=== PATIENT | male | born 1950 | race Caucasian/White ===

== ENCOUNTER 2017-12-11 12:07 | Inpatient (IN) | payer MEDICARE, OTHER ==
[2017-12-11 12:40] LABS: % BASOPHILS 1.8 % (0.0-2.0); % EOSINOPHILS 3.9 % (0.0-5.0); % LYMPHOCYTES 21.5 % (20.0-50.0); % MONOCYTES 5.8 % (2.0-10.0); BASOPHILE ABSOLUTE 0.2 Th/cumm (0-0.2); EOSINOPHILE ABSOLUTE 0.4 Th/cmm (0.1-0.4); HEMATOCRIT 46.7 % (41.0-60); HEMOGLOBIN 15.5 gm/dL (12-16); MEAN CELL VOLUME 88.4 fl (80-99); MEAN CORPUSCULAR HEMOGLOBIN 29.4 pg (27.0-31.0); MEAN CORPUSCULAR HGB CONC 33.2 pg (28.0-36.0); MEAN PLATELET VOLUME 7.6 fl; MONOCYTE ABSOLUTE 0.6 Th/cmm (0.3-1.0); NEUTROPHILE ABSOLUTE 6.3 Th/cmm (1.8-8.0); PLATELET COUNT 243 Th/cmm (150-400); RED BLOOD COUNT 5.29 Mil/cmm (3.80-5.80); RED CELL DISTRIBUTION WIDTH 15.9 % (11.5-20.0); WHITE BLOOD COUNT 9.5 Th/cmm (4.8-10.8)
[2017-12-11 12:55] LABS: ALB/GLOB RATIO 1.6 (1.0-1.8); ALBUMIN 4.3 gm/dL (4.2-5.5); ALKALINE PHOSPHATASE 86 U/L (34-104); BILIRUBIN,TOTAL 0.6 mg/dL (0.3-1.0); BUN - UREA NITROGEN 14 mg/dL (7-25); CALCIUM SERUM 9.3 mg/dL (8.6-10.3); CARBON DIOXIDE 22.7 mEq/L (21.0-31.0); CHLORIDE 105 mEq/L (98-107); CHOLESTEROL 123 mg/dL (<200); CREATININE - SERUM 0.7 mg/dL (0.7-1.3); GFR AFRICAN-AMERICAN > 60.0 ml/min (>90); GFR NON AFRICAN-AMERICAN > 60.0 ml/min; GLUCOSE 115 mg/dL (70-105); HDL -HIGH DENSITY LIPOPROTEIN 26 mg/dL (23-92); POTASSIUM SERUM 3.7 mEq/L (3.5-5.1); SGOT 16 U/L (13-39); SGPT/ALT 15 U/L (7-52); SODIUM SERUM 138 mEq/L (136-145); TRIGLYCERIDES 106 mg/dL (<150)
[2017-12-11 12:56] LABS: ACETAMINOPHEN < 10.0 ug/mL (10.0-30.0); SALICYLATES (ASPIRIN) < 25.0 mg/L (30.0-100.0)
--- NOTE | 2017-12-11 13:33 | ED Physician Chart ---
ED Chief Complaint/HPI - Patient Information Date Seen:: 12/11/17 Time Seen:: 12:20 Chief Complaint:: Agitation History of Present Illness:: onset x 3 days of agitation and hostile behavior; no report of trauma, H/As, S/T , neck pain, C/P, SOB, Abd. Pain, A/N/V/D/C, fever, chills, SIs, or urinary s/s Allergies:: Allergies Allergy/AdvReac Type Severity Reaction Status Date / Time No Known Allergies Allergy Verified 12/11/17 12:23 Vitals:: Vital Signs - 8 hr 12/11/17 12/11/17 12:23 13:23 Temp 97.0 F 97.5 F HR 79 78 RR 16 18 BP 178/81 165/78 O2 Sat % 99 98 Historian:: Patient Review:: Nurse's Note Reviewed ED Review of Systems - Review of Systems General/Constitutional: No fever, No chills, No weight loss, No weakness, No diaphoresis, No edema, No loss of appetite Skin: No skin lesions, No rash, No bruising Head: No headache, No light-headedness Eyes: No loss of vision, No pain, No diplopia ENT: No earache, No nasal drainage, No sore throat, No tinnitus Neck: No neck pain, No swelling, No thyromegaly, No stiffness, No mass noted Cardio Vascular: No chest pain, No palpitations, No PND, No orthopnea, No edema Pulmonary: No SOB, No cough, No sputum, No wheezing GI: No nausea, No vomiting, No diarrhea, No pain, No melena, No hematochezia, No constipation, No hematemesis G/U: No dysuria, No frequency, No hematuria, No nacturia Musculoskeletal: No bone or joint pain, No back pain, No muscle pain Endocrine: No polyuria, No polydipsia Psychiatric: Prior psych history, Depression, No anxiety, No suicidal ideation, No homicidal ideation, Auditory hallucination, No visual hallucination Hematopoietic: No bruising, No lymphadenopathy Allergic/Immuno: No urticaria, No angioedema Neurological: No syncope, No focal symptoms, No weakness, No paresthesia, No headache, No seizure, No dizziness, No confusion, No vertigo ED Past Medical History - Past Medical History Obtainable: Yes Past Medical History: HTN, Dyslipidemia, PUD/GERD Family History: HTN Social History: Non Smoker, No Alcohol, No Drug Use, Single, Care Facility Surgical History: None Psychiatricy History: Schizophrenia, Bipolar Medication: Reviewed Family Medical History - Family Member Mother History Unknown: Yes ED Physical Exam - Physical Examination General/Constitutional: Awake, Well-developed, well-nourished, Alert, No distress, GCS 15, Non-toxic appearing, Ambulatory Head: Atraumatic Eyes: Lids, conjuctiva normal, PERRL, EOMI Skin: Nl inspection, No rash, No skin lesions, No ecchymosis, Well hydrated, No lymphadenopathy ENMT: External ears, nose nl, TM canals nl, Nasal exam nl, Lips, teeth, gums nl , Oropharynx nl, Tonsils nl Neck: Nontender, Full ROM w/o pain, No JVD, No nuchal rigidity, No bruit, No mass, No stridor Respiratory: Nl effort/Exclusion, Clear to Auscultation, No Wheeze/Rhonchi/Rales Cardio Vascular: RRR, No murmur, gallop, rubs, NL S1 S2, Carotid/Femoral/Distal pulses equal bilaterally GI: No tenderness/rebounding/guarding, No organomegaly, No hernia, Normal BS's, Nondistended, No mass/bruits, No McBurney tenderness, Rectum exam nl : No CVA tenderness Extremities: No tenderness or effusion, Full ROM, normal strength in all extremities, No edema, Normal digits & nails Neuro/Psych: Alert/oriented, DTR's symmetric, Normal sensory exam, Normal motor strength, Judgement/insight normal, Mood normal, Normal gait, No focal deficits Other Neuro/Psych comments:: + Psychomotor Agitation; no SIs; Mood/Affect: Labile Misc: Normal back, No paraspinal tenderness ED Labs/Radiology/EKG Results - Lab Results Results: Laboratory Tests 12/11/17 12/11/17 12:30 12:30 WBC 9.5 RBC 5.29 Hgb 15.5 Hct 46.7 MCV 88.4 MCH 29.4 MCHC Differential 33.2 RDW 15.9 Plt Count 243 MPV 7.6 Neutrophils % 67.0 Lymphocytes % 21.5 Monocytes % 5.8 Eosinophils % 3.9 Basophils % 1.8 Sodium 138 Potassium 3.7 Chloride 105 Carbon Dioxide 22.7 Anion Gap 14.0 BUN 14 Creatinine 0.7 Est GFR ( Amer) > 60.0 Est GFR (Non-Af Amer) > 60.0 BUN/Creatinine Ratio 20.0 Glucose 115 H Calcium 9.3 Total Bilirubin 0.6 AST 16 ALT 15 Alkaline Phosphatase 86 Total Protein 7.0 Albumin 4.3 Globulin 2.7 Albumin/Globulin Ratio 1.6 Triglycerides 106 Cholesterol 123 LDL Cholesterol Direct 96 HDL Cholesterol 26 Salicylates < 25.0 L Acetaminophen < 10.0 L Ethyl Alcohol < 10 ED Septic Shock - . Is Septic Shock (SBP<90, OR Lactate>4 mmol\L) present?: No - <6hrs of presentation: Vital Signs: Vital Signs - 8 hr 12/11/17 12/11/17 12:23 13:23 Temp 97.0 F 97.5 F HR 79 78 RR 16 18 BP 178/81 165/78 O2 Sat % 99 98
[2017-12-11 13:43] LABS: URINE MICROSCOPIC INDICATED? YES; URINE SOURCE CLEAN C
[2017-12-11 13:45] LABS: URINE BILIRUBIN NEGATIVE (NEGATIVE); URINE BLOOD NEGATIVE (NEGATIVE); URINE GLUCOSE (UA) NEGATIVE (NEGATIVE); URINE KETONE NEGATIVE (NEGATIVE); URINE LEUKOCYTE ESTERASE NEGATIVE (NEGATIVE); URINE NITRATE NEGATIVE (NEGATIVE); URINE PROTEIN NEGATIVE (NEGATIVE)
[2017-12-11 13:46] LABS: URINE CLARITY CLEAR (CLEAR); URINE COLOR YELLOW
[2017-12-11 13:58] LABS: URINE BACTERIA OCCASIONAL /hpf (NONE SEEN); URINE EPITHELIAL CELLS FEW /lpf (FEW); URINE RBC 0-2 /hpf (0-5); URINE WBC 0-2 /hpf (0-5)
[2017-12-11 16:57] VITALS: BP 126/78
[2017-12-11] MEDS ORDERED: Magnesium Hydroxide (MOM) 30 mL UDC PO PRN (16:58)
[2017-12-11] MEDS ORDERED: Maalox 30 mL Cup PO PRN (16:58)
[2017-12-11] MEDS ORDERED: Albuterol/Ipratropium Neb 3 ML AERS HHN PRN (20:40)
--- NOTE | 2017-12-12 04:11 | Psychosocial Evaluation ---
DATE OF SERVICE: 12/11/2017 PSYCHIATRIC PROGRESS NOTE IDENTIFYING DATA: The patient is a 67-year-old male, resident of [facility]. Information obtained by directly interviewing the patient as well as reviewing the admission papers and they are reliable. JUSTIFICATION FOR HOSPITALIZATION: The patient is admitted here on a voluntary basis in view of his psychosis and mood. CHIEF COMPLAINT: "I love my girlfriend so much and I need to be back at the place, I am exchanging the places for her." HISTORY OF PRESENT ILLNESS: This is the first psychiatric hospitalization to this patient, who is reported to have been very anxious and upset and the patient is reported to have been mentioning that his girlfriend was here recently and he came in here to replace her. The patient is stating that he was in so much love with the girlfriend and he is about to her. The patient is going on a tangent. The patient has been mentioning he could not figure it out why he has to come in here except that he got into an argument with one of the staff members over there. The patient's sleep and appetite prior to the hospitalization are reported to be poor. Coping skills are also noted to be very poor. The patient has been having difficult time to cope with the stress. The patient at this time is willing to comply with the treatment, but wants to go back because his girlfriend is there at the place. SUBSTANCE ABUSE HISTORY: None. PHYSICAL OR SEXUAL ABUSE HISTORY: None. LEGAL PROBLEMS: None at this time. MENTAL STATUS EXAMINATION: The patient is a 67-year-old, looking older than her stated age, cooperative. Eye contact is poor. Mood is noted to be depressed. Affect is constricted. The patient has paranoia, but denies any command hallucinations. The patient is reported to have gotten out of control and scream at the staff members. The patient's major concern at this time seems to be his sexual dysfunction. The patient is stating that he is planning to , but he is not able to perform. The patient is alert and awake and he is fully aware that he is in the hospital. Short-term memory is noted to be fair. Long-term memory is also noted to be fair. DIAGNOSTIC IMPRESSION: AXIS IA. Major depressive disorder, recurrent and moderate. AXIS IB. Rule out psychosis. AXIS II: None. AXIS III: As per Dr. Witt. IMMEDIATE TREATMENT PLAN. The patient is going to be continued on the Celexa. The patient is going to be closely monitored. Once stabilized, the patient is going to be discharged to [email or web address] to be followed up on an outpatient basis. JOB# [id number]
[2017-12-12] MEDS: Multivitamin Tab PO SCH (08:57)
--- NOTE | 2017-12-12 09:13 | History and Physical ---
History of Present Illness - HPI Chief Complaint: Increased in agitation HPI: This is a permanent resident of a skilled nursing. patient was send to ER for evaluation in increased in agitation. Vital Signs: Last Vital Signs Temp 97.7 F 12/12/17 06:09 Pulse 71 12/12/17 08:56 Resp 20 12/12/17 06:09 BP 123/74 12/12/17 08:58 Pulse Ox 97 12/12/17 06:09 Past Medical History Cardiovascular: Report: CAD, HTN Pulmonary: Report: No Pertinent Hx TANK INSPECTOR: Report: No Pertinent Hx GI: Report: No Pertinent Hx Psych: Report: Psychosis, Schizophrenia Musculoskeletal: Report: No Pertinent Hx Rheumatologic: Report: No pertinent Hx Infectious Disease: Report: No Pertinent Hx Renal/: Report: No Pertinent Hx, Other (Dyslipemia) Dermatology: Report: No Pertinent Hx - Past Surgical History Past Surgical History: No pertinent Hx Family Medical History - Family Member Mother History Unknown: Yes Ethnicity: Unknown Living Status: Unknown Hx Family Cancer: (unknown) Hx Family Coronary Artery Disease: (unknown) Hx Family Congestive Heart Failure: (unknown) Hx Family Hypertension: (unknown) Hx Family Stroke: (unknown) Hx Family Diabetes: (unknown) Hx Family Seizures: (unknown) Hx Family Dementia: (unknown) Hx Family AIDS: (unknown) Hx Family COPD: (unknown) Hx Family Hepatitis: (unknown) Hx Family Psychiatric Problems: (unknown) Hx Family Tuberculosis: (unknown) Social History Smoke: No Alcohol: None Drugs: None Lives: Senior Living Domestic Violence: Negative - Medications Home Medications: Home Medication Medication Instructions Recorded Type Acetaminophen [Tylenol] 325 mg PO Q4HR PRN 12/11/17 History Acetaminophen [Tylenol] 650 mg PO Q4HR PRN 12/11/17 History Albuterol/Ipratropium Neb [Duoneb 3 ml HHN Q6HR PRN 12/11/17 History Neb] Amitriptyline HCl [Amitriptyline 50 mg PO HS 12/11/17 History HCl*] Amlodipine Besylate 5 mg PO DAILY 12/11/17 History Aspirin 325 mg PO DAILY 12/11/17 History Carvedilol [Coreg] 3.125 mg PO BID 12/11/17 History Citalopram Hydrobromide [Celexa] 20 mg PO DAILY 12/11/17 History Fluticasone/Salmeterol [Advair 1 puff INH BID 12/11/17 History 250-50 Diskus] Furosemide [Lasix] 20 mg PO DAILY 12/11/17 History Gabapentin [Neurontin] 300 mg PO BID 12/11/17 History Lisinopril 20 mg PO DAILY 12/11/17 History Magnesium Oxide [Mag-Oxide] 400 mg PO DAILY 12/11/17 History Metformin HCl [Fortamet] 1,000 mg PO BID 12/11/17 History Nitroglycerin 0.4 mg SL Q5MIN PRN 12/11/17 History Simvastatin [Zocor] 20 mg PO HS 12/11/17 History Tamsulosin [Flomax] 0.4 mg PO HS 12/11/17 History - Allergies Allergies/Adverse Reactions: Allergies Allergy/AdvReac Type Severity Reaction Status Date / Time No Known Allergies Allergy Verified 12/11/17 12:23 Review of Systems - Review of Systems Constitutional: Report: No Significant Eyes: Report: No Significant ENT: Report: No Significant Respiratory: Report: No Significant Cardiovascular: Report: No Significant Gastrointestinal: Report: No Significant Genitourinary: Report: No Significant Musculoskeletal: Report: No Significant Skin: Report: No Significant Neurological: Report: No Significant Physical Exam - Physical Exam HEENT: Report: Ears Nose Throat within normal limits Neck: Report: Within normal limits Cardiovascular Systems: Report: Regular, Rate and Rhythm Respiratory: Report: Breath Sounds are within normal limits Abdomen: Report: Non-tender to palpation Back: Report: Inspection of back is within normal limits. Extremities: Report: Non-tender to palpation. Skin: Report: Color of skin is within normal limits Neuro/Psych: Report: Disoriented to name time or place - Lab Results All Lab Results last 24 hours: Laboratory Results - last 24 hr 12/11/17 14:25 POC Glucose 107 H - Assessment Assessment: Current Active Problems Problem Status Onset AGITATION AND AGGRESSION Acute Patient is awake, alert, confused. DX: Incresed in agitation, HTN, Schizophrenia - Plan Plan: Patient is follow by Psychiatry, Continue with SNF meds. Will continue to monitor.
--- NOTE | 2017-12-12 19:51 | Progress Notes ---
DATE: 12/12/2017 SUBJECTIVE: Staff was spoken to. The patient is interviewed. Mood is noted to be irritable. Affect is constricted. The patient is still very depressed. The patient is stating that he is missing his girlfriend. He needs to be there. Coping skills are noted to be very poor. Insight and judgment are very much impaired. Impulse control is very poor. The patient is downplaying why he has to be in here and is stating that he got upset with the staff over there and he states that he is trying to be nice now. ASSESSMENT: The patient is still depressed. PLAN: To continue the patient with the supportive therapy. Encouraged the patient to verbalize the concerns rather than to act out. [facility]# [id number]
[2017-12-13] MEDS: Multivitamin Tab PO SCH (08:09)
--- NOTE | 2017-12-13 09:11 | General Progress Note ---
Subjective - Review of Systems Service Date: 12/13/17 Subjective: I am ok Objective - Results Result Diagrams: 12/11/17 12:30 12/11/17 12:30 Recent Labs: Laboratory Last Values WBC 9.5 Th/cmm (4.8-10.8) 12/11/17 12:30 RBC 5.29 Mil/cmm (3.80-5.80) 12/11/17 12:30 Hgb 15.5 gm/dL (12-16) 12/11/17 12:30 Hct 46.7 % (41.0-60) 12/11/17 12:30 MCV 88.4 fl (80-99) 12/11/17 12:30 MCH 29.4 pg (27.0-31.0) 12/11/17 12:30 MCHC Differential 33.2 pg (28.0-36.0) 12/11/17 12:30 RDW 15.9 % (11.5-20.0) 12/11/17 12:30 Plt Count 243 Th/cmm (150-400) 12/11/17 12:30 MPV 7.6 fl 12/11/17 12:30 Neutrophils % 67.0 % (40.0-80.0) 12/11/17 12:30 Lymphocytes % 21.5 % (20.0-50.0) 12/11/17 12:30 Monocytes % 5.8 % (2.0-10.0) 12/11/17 12:30 Eosinophils % 3.9 % (0.0-5.0) 12/11/17 12:30 Basophils % 1.8 % (0.0-2.0) 12/11/17 12:30 Sodium 138 mEq/L (136-145) 12/11/17 12:30 Potassium 3.7 mEq/L (3.5-5.1) 12/11/17 12:30 Chloride 105 mEq/L (98-107) 12/11/17 12:30 Carbon Dioxide 22.7 mEq/L (21.0-31.0) 12/11/17 12:30 Anion Gap 14.0 (7.0-16.0) 12/11/17 12:30 BUN 14 mg/dL (7-25) 12/11/17 12:30 Creatinine 0.7 mg/dL (0.7-1.3) 12/11/17 12:30 Est GFR ( Amer) > 60.0 ml/min (>90) 12/11/17 12:30 Est GFR (Non-Af Amer) > 60.0 ml/min 12/11/17 12:30 BUN/Creatinine Ratio 20.0 12/11/17 12:30 Glucose 115 mg/dL (70-105) H 12/11/17 12:30 POC Glucose 107 MG/DL (70 - 105) H 12/11/17 14:25 Hemoglobin A1c % 6.0 % (4.0-6.0) 12/11/17 12:30 Calcium 9.3 mg/dL (8.6-10.3) 12/11/17 12:30 Total Bilirubin 0.6 mg/dL (0.3-1.0) 12/11/17 12:30 AST 16 U/L (13-39) 12/11/17 12:30 ALT 15 U/L (7-52) 12/11/17 12:30 Alkaline Phosphatase 86 U/L (34-104) 12/11/17 12:30 Total Protein 7.0 gm/dL (6.0-8.3) 12/11/17 12:30 Albumin 4.3 gm/dL (4.2-5.5) 12/11/17 12:30 Globulin 2.7 gm/dL 12/11/17 12:30 Albumin/Globulin Ratio 1.6 (1.0-1.8) 12/11/17 12:30 Triglycerides 106 mg/dL (<150) 12/11/17 12:30 Cholesterol 123 mg/dL (<200) 12/11/17 12:30 LDL Cholesterol Direct 96 mg/dL (75-193) 12/11/17 12:30 HDL Cholesterol 26 mg/dL (23-92) 12/11/17 12:30 TSH 1.06 uIU/ml (0.34-5.60) 12/11/17 12:30 Urine Source CLEAN C 12/11/17 12:15 Urine Color YELLOW 12/11/17 12:15 Urine Clarity CLEAR (CLEAR) 12/11/17 12:15 Urine pH 7.0 (4.6 - 8.0) 12/11/17 12:15 Ur Specific [place] 1.015 (1.005-1.030) 12/11/17 12:15 Urine Protein NEGATIVE mg/dL (NEGATIVE) 12/11/17 12:15 Urine Glucose (UA) NEGATIVE mg/dL (NEGATIVE) 12/11/17 12:15 Urine Ketones NEGATIVE mg/dL (NEGATIVE) 12/11/17 12:15 Urine Blood NEGATIVE (NEGATIVE) 12/11/17 12:15 Urine Nitrate NEGATIVE (NEGATIVE) 12/11/17 12:15 Urine Bilirubin NEGATIVE (NEGATIVE) 12/11/17 12:15 Urine Urobilinogen 1.0 E.U./dL (0.2 - 1.0) 12/11/17 12:15 Ur Leukocyte Esterase NEGATIVE (NEGATIVE) 12/11/17 12:15 Urine RBC 0-2 /hpf (0-5) H 12/11/17 12:15 Urine WBC 0-2 /hpf (0-5) 12/11/17 12:15 Ur Epithelial Cells FEW /lpf (FEW) 12/11/17 12:15 Urine Bacteria OCCASIONAL /hpf (NONE SEEN) 12/11/17 12:15 Salicylates < 25.0 mg/L (30.0-100.0) L 12/11/17 12:30 Acetaminophen < 10.0 ug/mL (10.0-30.0) L 12/11/17 12:30 Ethyl Alcohol < 10 mg/dL (0-10) 12/11/17 12:30 RPR NONREACTIVE (NONREACTIVE) 12/11/17 12:30 - Physical Exam Vitals and I&O: Vital Signs Temp 98.1 F 12/13/17 06:40 Pulse 68 12/13/17 08:12 Resp 20 12/13/17 06:40 BP 143/66 12/13/17 08:12 Pulse Ox 97 12/13/17 06:40 Intake & Output 12/12/17 12/13/17 12/13/17 18:59 06:59 18:59 Intake Total 1600 320 Balance 1600 320 Intake: Oral 1600 320 Other: # Voids 4 3 # Bowel Movements 1 Active Medications: Current Medications Acetaminophen (Tylenol) 650 mg PO Q4HR PRN PRN Reason: Mild Pain / Temp above 100 Stop: 02/09/18 16:57 Al Hydrox/Mg Hydrox/Simethicone (Maalox) 30 ml PO Q4HR PRN PRN Reason: GI DISTRESS Stop: 02/09/18 16:57 Albuterol/Ipratropium (Duoneb Neb) 3 ml HHN Q6HR PRN PRN Reason: WHEEZING/SOB Stop: 02/09/18 20:39 Amlodipine Besylate (Norvasc) 5 mg PO DAILY MOSHE Stop: 02/10/18 08:59 Last Admin: 12/13/17 08:11 Dose: 5 mg Aspirin (Aspirin) 325 mg PO DAILY MOSHE Stop: 02/10/18 08:59 Last Admin: 12/13/17 08:11 Dose: 325 mg Carvedilol (Coreg) 3.125 mg PO BID MOSHE Stop: 02/10/18 08:59 Last Admin: 12/13/17 08:10 Dose: 3.125 mg Citalopram Hydrobromide (Celexa) 10 mg PO DAILY MOSHE PRN Reason: Protocol Stop: 02/10/18 08:59 Last Admin: 12/13/17 08:09 Dose: 10 mg Furosemide (Lasix) 20 mg PO DAILY MOSHE Stop: 02/10/18 08:59 Last Admin: 12/13/17 08:11 Dose: 20 mg Gabapentin (Neurontin) 300 mg PO BID MOSHE Stop: 02/10/18 08:59 Last Admin: 12/13/17 08:10 Dose: 300 mg Lisinopril (Zestril) 20 mg PO DAILY MOSHE Stop: 02/10/18 08:59 Last Admin: 12/13/17 08:12 Dose: 20 mg Lorazepam (Ativan) 0.5 mg PO Q4HR PRN; Protocol PRN Reason: Anxiety Stop: 01/10/18 16:57 Last Admin: 12/12/17 21:22 Dose: 0.5 mg Magnesium Hydroxide (Milk Of Magnesia) 30 ml PO HS PRN PRN Reason: Constipation Magnesium Oxide (Mag-Oxide) 400 mg PO DAILY MOSHE Stop: 02/10/18 08:59 Last Admin: 12/13/17 08:08 Dose: 400 mg Metformin HCl (Glucophage) 1,000 mg PO BIDWM MOSHE Stop: 02/10/18 07:59 Last Admin: 12/13/17 08:09 Dose: 1,000 mg Multivitamins/Vitamin C (Theragran) 1 tab PO DAILY MOSHE Stop: 02/10/18 08:59 Last Admin: 12/13/17 08:09 Dose: 1 tab Nitroglycerin (Nitrostat) 0.4 mg SL Q5MIN PRN PRN Reason: Chest Pain Stop: 02/09/18 20:39 Simvastatin (Zocor) 20 mg PO HS MOSHE PRN Reason: Protocol Stop: 02/09/18 20:59 Last Admin: 12/12/17 21:22 Dose: 20 mg Tamsulosin HCl (Flomax) 0.4 mg PO HS MOSHE Stop: 02/09/18 20:59 Last Admin: 12/12/17 21:22 Dose: 0.4 mg Zolpidem Tartrate (Ambien) 5 mg PO HS PRN PRN Reason: Insomnia Stop: 02/09/18 16:57 Last Admin: 12/12/17 21:22 Dose: 5 mg General: Alert, Other (Confused) HEENT: Atraumatic Neck: Supple Cardiovascular: Regular rate Abdomen: Bowel sounds, Soft Extremities: Other (No edema) Neurological: Other (Unstable gait) Skin: Other (warm and dry) Psych/Mental Status: Other (Confused, not oriented) Assessment/Plan - Problem List Patient Problems: All Active Problems AGITATION AND AGGRESSION (Acute) - Assessment Assessment: Current Active Problems Problem Status Onset AGITATION AND AGGRESSION Acute Patient is awake, alert, confused. DX: Incresed in agitation, HTN, Schizophrenia - Plan Plan: Patient is follow by Psychiatry, Continue with SNF meds. Will continue to monitor.
--- NOTE | 2017-12-13 15:05 | Progress Notes ---
DATE: 12/13/2017 SUBJECTIVE: Staff was spoken to. The patient is interviewed. Mood is noted to be irritable. Affect is constricted. Insight and judgment at this time are noted to be still impaired. Impulse control seems to be limited. Coping skills are noted to be limited. The patient, however, has been stating that there is no reason for him to be in here, he needs to be discharged. The patient is very intrusive. ASSESSMENT: The patient is still depressed. PLAN: To continue the patient with the citalopram and encouraged the patient to verbalize the concerns rather than to act out. Please note that the patient is not ready to be discharged to a lower level of care yet. JOB# [id number]
--- NOTE | 2017-12-13 18:14 | Consultation ---
DATE OF CONSULTATION: 12/13/2017 TYPE OF CONSULTATION: Psychology. REQUESTING PHYSICIAN: Dr. Maru Red. HISTORY OF PRESENT ILLNESS: The patient is a 67-year-old male who is a resident of [facility]. The following is by review of medical record and by the patient's self report. The patient is being admitted in view of possible psychosis and mood instability. According to the staff at the patient's facility, it was reported he had been anxious and upset with his girlfriend and was verbally acting out towards the staff. The patient became inconsolable about his girlfriend and other issues related to his relationship. Upon interview, the patient needed constant cognitive redirection and reframing. The patient's thought process was markedly tangential. The patient denied that he was arguing with the staff. The patient is having a difficult time coping with current stressors. The patient stated he has no suicidal ideation, plan, or intention. PAST MEDICAL HISTORY: Please see history and physical by Dr. Witt. PAST PSYCHIATRIC HISTORY: No records available. CURRENT MEDICATIONS: Please see admission medication reconciliation. SUBSTANCE ABUSE HISTORY: The patient denies any history. PSYCHOSOCIAL HISTORY: The patient is a resident of [facility]. The patient states that he is going to get to his girlfriend and has a relationship at his facility with her and that he wants to return to his placement. The patient stated that he is a high school graduate. The patient did not answer questions about occupational history or evangelical affiliation. The patient denied any sexual or physical abuse history or any legal problems at the time of this interview. MENTAL STATUS EXAMINATION: The patient appears to be older than his stated age. The patient's attitude is generally cooperative. Eye contact is poor. Speech is pressured and rambling at times. Mood is depressed. Affect is constricted. Thought process is markedly tangential requiring consistent cognitive redirection. The patient denies any suicidal ideation, plan or intention. He denied any auditory or visual hallucinations; however, there is some evidence there may be paranoid ideation. The patient's behavior on the unit has been restless, but redirectable. Impulse control is poor. The patient was alert and oriented to person and place. The patient's memory seems to be impaired for immediate memory, but short-term and long-term memory seemed to be fair. The patient perseverated on his relationship with his girlfriend and possible sexual dysfunction. This will be addressed in treatment. The patient's concentration is fair to poor. He had difficulty sustaining focus and attention which may affect his immediate memory. The patient did not participate in the interpretation of proverbs. Insight is poor. Judgment is compromised. DIAGNOSTIC IMPRESSION: AXIS I: 1. Major depressive disorder, recurrent, moderate. 2. Rule out psychosis. AXIS II: Deferred. AXIS III: Please see history and physical by Dr. Witt. TREATMENT PLAN: The patient has been seen by Dr. Red for psychiatric evaluation and for the management of the patient's psychotropic medications. The patient is being continued on Celexa. We will provide supportive therapy to include motivational enhancement for the patient to become compliant with all aspects of his care and treatment plan. We will provide cognitive behavioral therapy and coping strategies for phase of life issues. We will provide stress management skills to increase the patient's frustration tolerance. We will encourage the patient to be able to verbally dialogue with the staff at his facility regarding his relationship with his girlfriend who is a resident there versus acting out. We will provide brief solution focused therapy towards this specific goal. Thank you, Dr. Red for this consult and the opportunity to participate with you in this patient's care. JOB# [id number] ANN-MARIE
[2017-12-14] MEDS: Multivitamin Tab PO SCH (08:13)
--- NOTE | 2017-12-14 09:49 | General Progress Note ---
Subjective - Review of Systems Service Date: 12/14/17 Subjective: I am ok Objective - Results Result Diagrams: 12/11/17 12:30 12/11/17 12:30 Recent Labs: Laboratory Last Values WBC 9.5 Th/cmm (4.8-10.8) 12/11/17 12:30 RBC 5.29 Mil/cmm (3.80-5.80) 12/11/17 12:30 Hgb 15.5 gm/dL (12-16) 12/11/17 12:30 Hct 46.7 % (41.0-60) 12/11/17 12:30 MCV 88.4 fl (80-99) 12/11/17 12:30 MCH 29.4 pg (27.0-31.0) 12/11/17 12:30 MCHC Differential 33.2 pg (28.0-36.0) 12/11/17 12:30 RDW 15.9 % (11.5-20.0) 12/11/17 12:30 Plt Count 243 Th/cmm (150-400) 12/11/17 12:30 MPV 7.6 fl 12/11/17 12:30 Neutrophils % 67.0 % (40.0-80.0) 12/11/17 12:30 Lymphocytes % 21.5 % (20.0-50.0) 12/11/17 12:30 Monocytes % 5.8 % (2.0-10.0) 12/11/17 12:30 Eosinophils % 3.9 % (0.0-5.0) 12/11/17 12:30 Basophils % 1.8 % (0.0-2.0) 12/11/17 12:30 Sodium 138 mEq/L (136-145) 12/11/17 12:30 Potassium 3.7 mEq/L (3.5-5.1) 12/11/17 12:30 Chloride 105 mEq/L (98-107) 12/11/17 12:30 Carbon Dioxide 22.7 mEq/L (21.0-31.0) 12/11/17 12:30 Anion Gap 14.0 (7.0-16.0) 12/11/17 12:30 BUN 14 mg/dL (7-25) 12/11/17 12:30 Creatinine 0.7 mg/dL (0.7-1.3) 12/11/17 12:30 Est GFR ( Amer) > 60.0 ml/min (>90) 12/11/17 12:30 Est GFR (Non-Af Amer) > 60.0 ml/min 12/11/17 12:30 BUN/Creatinine Ratio 20.0 12/11/17 12:30 Glucose 115 mg/dL (70-105) H 12/11/17 12:30 POC Glucose 107 MG/DL (70 - 105) H 12/11/17 14:25 Hemoglobin A1c % 6.0 % (4.0-6.0) 12/11/17 12:30 Calcium 9.3 mg/dL (8.6-10.3) 12/11/17 12:30 Total Bilirubin 0.6 mg/dL (0.3-1.0) 12/11/17 12:30 AST 16 U/L (13-39) 12/11/17 12:30 ALT 15 U/L (7-52) 12/11/17 12:30 Alkaline Phosphatase 86 U/L (34-104) 12/11/17 12:30 Total Protein 7.0 gm/dL (6.0-8.3) 12/11/17 12:30 Albumin 4.3 gm/dL (4.2-5.5) 12/11/17 12:30 Globulin 2.7 gm/dL 12/11/17 12:30 Albumin/Globulin Ratio 1.6 (1.0-1.8) 12/11/17 12:30 Triglycerides 106 mg/dL (<150) 12/11/17 12:30 Cholesterol 123 mg/dL (<200) 12/11/17 12:30 LDL Cholesterol Direct 96 mg/dL (75-193) 12/11/17 12:30 HDL Cholesterol 26 mg/dL (23-92) 12/11/17 12:30 TSH 1.06 uIU/ml (0.34-5.60) 12/11/17 12:30 Urine Source CLEAN C 12/11/17 12:15 Urine Color YELLOW 12/11/17 12:15 Urine Clarity CLEAR (CLEAR) 12/11/17 12:15 Urine pH 7.0 (4.6 - 8.0) 12/11/17 12:15 Ur Specific [place] 1.015 (1.005-1.030) 12/11/17 12:15 Urine Protein NEGATIVE mg/dL (NEGATIVE) 12/11/17 12:15 Urine Glucose (UA) NEGATIVE mg/dL (NEGATIVE) 12/11/17 12:15 Urine Ketones NEGATIVE mg/dL (NEGATIVE) 12/11/17 12:15 Urine Blood NEGATIVE (NEGATIVE) 12/11/17 12:15 Urine Nitrate NEGATIVE (NEGATIVE) 12/11/17 12:15 Urine Bilirubin NEGATIVE (NEGATIVE) 12/11/17 12:15 Urine Urobilinogen 1.0 E.U./dL (0.2 - 1.0) 12/11/17 12:15 Ur Leukocyte Esterase NEGATIVE (NEGATIVE) 12/11/17 12:15 Urine RBC 0-2 /hpf (0-5) H 12/11/17 12:15 Urine WBC 0-2 /hpf (0-5) 12/11/17 12:15 Ur Epithelial Cells FEW /lpf (FEW) 12/11/17 12:15 Urine Bacteria OCCASIONAL /hpf (NONE SEEN) 12/11/17 12:15 Salicylates < 25.0 mg/L (30.0-100.0) L 12/11/17 12:30 Acetaminophen < 10.0 ug/mL (10.0-30.0) L 12/11/17 12:30 Ethyl Alcohol < 10 mg/dL (0-10) 12/11/17 12:30 RPR NONREACTIVE (NONREACTIVE) 12/11/17 12:30 - Physical Exam Vitals and I&O: Vital Signs Temp 97.3 F 12/14/17 06:23 Pulse 75 12/14/17 08:13 Resp 20 12/14/17 06:23 BP 111/68 12/14/17 08:14 Pulse Ox 98 12/14/17 06:23 Intake & Output 12/13/17 12/14/17 12/14/17 18:59 06:59 18:59 Intake Total 900 120 Balance 900 120 Intake: Oral 900 120 Other: # Voids 3 3 # Bowel Movements 1 Active Medications: Current Medications Acetaminophen (Tylenol) 650 mg PO Q4HR PRN PRN Reason: Mild Pain / Temp above 100 Stop: 02/09/18 16:57 Al Hydrox/Mg Hydrox/Simethicone (Maalox) 30 ml PO Q4HR PRN PRN Reason: GI DISTRESS Stop: 02/09/18 16:57 Albuterol/Ipratropium (Duoneb Neb) 3 ml HHN Q6HR PRN PRN Reason: WHEEZING/SOB Stop: 02/09/18 20:39 Amlodipine Besylate (Norvasc) 5 mg PO DAILY MOSHE Stop: 02/10/18 08:59 Last Admin: 12/14/17 08:12 Dose: 5 mg Aspirin (Aspirin) 325 mg PO DAILY MOSHE Stop: 02/10/18 08:59 Last Admin: 12/14/17 08:13 Dose: 325 mg Carvedilol (Coreg) 3.125 mg PO BID MOSHE Stop: 02/10/18 08:59 Last Admin: 12/14/17 08:11 Dose: 3.125 mg Citalopram Hydrobromide (Celexa) 10 mg PO DAILY MOSHE PRN Reason: Protocol Stop: 02/10/18 08:59 Last Admin: 12/14/17 08:14 Dose: 10 mg Furosemide (Lasix) 20 mg PO DAILY MOSHE Stop: 02/10/18 08:59 Last Admin: 12/14/17 08:14 Dose: 20 mg Gabapentin (Neurontin) 300 mg PO BID MOSHE Stop: 02/10/18 08:59 Last Admin: 12/14/17 08:11 Dose: 300 mg Lisinopril (Zestril) 20 mg PO DAILY MOSHE Stop: 02/10/18 08:59 Last Admin: 12/14/17 08:13 Dose: 20 mg Lorazepam (Ativan) 0.5 mg PO Q4HR PRN; Protocol PRN Reason: Anxiety Stop: 01/10/18 16:57 Last Admin: 12/13/17 13:51 Dose: 0.5 mg Magnesium Hydroxide (Milk Of Magnesia) 30 ml PO HS PRN PRN Reason: Constipation Magnesium Oxide (Mag-Oxide) 400 mg PO DAILY MOSHE Stop: 02/10/18 08:59 Last Admin: 12/14/17 08:13 Dose: 400 mg Metformin HCl (Glucophage) 1,000 mg PO BIDWM MOSHE Stop: 02/10/18 07:59 Last Admin: 12/14/17 08:10 Dose: 1,000 mg Multivitamins/Vitamin C (Theragran) 1 tab PO DAILY MOSHE Stop: 02/10/18 08:59 Last Admin: 12/14/17 08:13 Dose: 1 tab Nitroglycerin (Nitrostat) 0.4 mg SL Q5MIN PRN PRN Reason: Chest Pain Stop: 02/09/18 20:39 Simvastatin (Zocor) 20 mg PO HS MOSHE PRN Reason: Protocol Stop: 02/09/18 20:59 Last Admin: 12/13/17 20:43 Dose: 20 mg Tamsulosin HCl (Flomax) 0.4 mg PO HS MOSHE Stop: 02/09/18 20:59 Last Admin: 12/13/17 20:43 Dose: 0.4 mg Zolpidem Tartrate (Ambien) 5 mg PO HS PRN PRN Reason: Insomnia Stop: 02/09/18 16:57 Last Admin: 12/13/17 20:44 Dose: 5 mg General: Alert, Other (Confused) HEENT: Atraumatic Neck: Supple Cardiovascular: Regular rate Abdomen: Bowel sounds, Soft Extremities: Other (No edema) Neurological: Other (Unstable gait) Skin: Other (warm and dry) Psych/Mental Status: Other (Confused, not oriented) Assessment/Plan - Problem List Patient Problems: All Active Problems AGITATION AND AGGRESSION (Acute) - Assessment Assessment: Current Active Problems Problem Status Onset AGITATION AND AGGRESSION Acute Patient is awake, alert, confused. DX: Incresed in agitation, HTN, Schizophrenia - Plan Plan: Patient is follow by Psychiatry, Continue with SNF meds. Will continue to monitor.
--- NOTE | 2017-12-15 02:24 | Progress Notes ---
DATE: 12/14/2017 SUBJECTIVE: Staff was spoken to. The patient is interviewed. Mood is noted to be irritable. Affect is constricted. The patient has constantly been mentioning that he does not belong in here, he misses his girlfriend and he [facility] the [facility]. Coping skills are noted to be very poor at this time. The patient's insight into his illness is also noted to be very much improving. The patient is still depressed. ASSESSMENT: The patient is still depressed. PLAN: To continue the patient with citalopram and follow up. JOB# [id number]
[2017-12-15] MEDS: Multivitamin Tab PO SCH (08:27)
--- NOTE | 2017-12-15 08:52 | General Progress Note ---
Subjective - Review of Systems Service Date: 12/15/17 Subjective: I am ok Objective - Results Result Diagrams: 12/11/17 12:30 12/11/17 12:30 Recent Labs: Laboratory Last Values WBC 9.5 Th/cmm (4.8-10.8) 12/11/17 12:30 RBC 5.29 Mil/cmm (3.80-5.80) 12/11/17 12:30 Hgb 15.5 gm/dL (12-16) 12/11/17 12:30 Hct 46.7 % (41.0-60) 12/11/17 12:30 MCV 88.4 fl (80-99) 12/11/17 12:30 MCH 29.4 pg (27.0-31.0) 12/11/17 12:30 MCHC Differential 33.2 pg (28.0-36.0) 12/11/17 12:30 RDW 15.9 % (11.5-20.0) 12/11/17 12:30 Plt Count 243 Th/cmm (150-400) 12/11/17 12:30 MPV 7.6 fl 12/11/17 12:30 Neutrophils % 67.0 % (40.0-80.0) 12/11/17 12:30 Lymphocytes % 21.5 % (20.0-50.0) 12/11/17 12:30 Monocytes % 5.8 % (2.0-10.0) 12/11/17 12:30 Eosinophils % 3.9 % (0.0-5.0) 12/11/17 12:30 Basophils % 1.8 % (0.0-2.0) 12/11/17 12:30 Sodium 138 mEq/L (136-145) 12/11/17 12:30 Potassium 3.7 mEq/L (3.5-5.1) 12/11/17 12:30 Chloride 105 mEq/L (98-107) 12/11/17 12:30 Carbon Dioxide 22.7 mEq/L (21.0-31.0) 12/11/17 12:30 Anion Gap 14.0 (7.0-16.0) 12/11/17 12:30 BUN 14 mg/dL (7-25) 12/11/17 12:30 Creatinine 0.7 mg/dL (0.7-1.3) 12/11/17 12:30 Est GFR ( Amer) > 60.0 ml/min (>90) 12/11/17 12:30 Est GFR (Non-Af Amer) > 60.0 ml/min 12/11/17 12:30 BUN/Creatinine Ratio 20.0 12/11/17 12:30 Glucose 115 mg/dL (70-105) H 12/11/17 12:30 POC Glucose 107 MG/DL (70 - 105) H 12/11/17 14:25 Hemoglobin A1c % 6.0 % (4.0-6.0) 12/11/17 12:30 Calcium 9.3 mg/dL (8.6-10.3) 12/11/17 12:30 Total Bilirubin 0.6 mg/dL (0.3-1.0) 12/11/17 12:30 AST 16 U/L (13-39) 12/11/17 12:30 ALT 15 U/L (7-52) 12/11/17 12:30 Alkaline Phosphatase 86 U/L (34-104) 12/11/17 12:30 Total Protein 7.0 gm/dL (6.0-8.3) 12/11/17 12:30 Albumin 4.3 gm/dL (4.2-5.5) 12/11/17 12:30 Globulin 2.7 gm/dL 12/11/17 12:30 Albumin/Globulin Ratio 1.6 (1.0-1.8) 12/11/17 12:30 Triglycerides 106 mg/dL (<150) 12/11/17 12:30 Cholesterol 123 mg/dL (<200) 12/11/17 12:30 LDL Cholesterol Direct 96 mg/dL (75-193) 12/11/17 12:30 HDL Cholesterol 26 mg/dL (23-92) 12/11/17 12:30 TSH 1.06 uIU/ml (0.34-5.60) 12/11/17 12:30 Urine Source CLEAN C 12/11/17 12:15 Urine Color YELLOW 12/11/17 12:15 Urine Clarity CLEAR (CLEAR) 12/11/17 12:15 Urine pH 7.0 (4.6 - 8.0) 12/11/17 12:15 Ur Specific [place] 1.015 (1.005-1.030) 12/11/17 12:15 Urine Protein NEGATIVE mg/dL (NEGATIVE) 12/11/17 12:15 Urine Glucose (UA) NEGATIVE mg/dL (NEGATIVE) 12/11/17 12:15 Urine Ketones NEGATIVE mg/dL (NEGATIVE) 12/11/17 12:15 Urine Blood NEGATIVE (NEGATIVE) 12/11/17 12:15 Urine Nitrate NEGATIVE (NEGATIVE) 12/11/17 12:15 Urine Bilirubin NEGATIVE (NEGATIVE) 12/11/17 12:15 Urine Urobilinogen 1.0 E.U./dL (0.2 - 1.0) 12/11/17 12:15 Ur Leukocyte Esterase NEGATIVE (NEGATIVE) 12/11/17 12:15 Urine RBC 0-2 /hpf (0-5) H 12/11/17 12:15 Urine WBC 0-2 /hpf (0-5) 12/11/17 12:15 Ur Epithelial Cells FEW /lpf (FEW) 12/11/17 12:15 Urine Bacteria OCCASIONAL /hpf (NONE SEEN) 12/11/17 12:15 Salicylates < 25.0 mg/L (30.0-100.0) L 12/11/17 12:30 Acetaminophen < 10.0 ug/mL (10.0-30.0) L 12/11/17 12:30 Ethyl Alcohol < 10 mg/dL (0-10) 12/11/17 12:30 RPR NONREACTIVE (NONREACTIVE) 12/11/17 12:30 - Physical Exam Vitals and I&O: Vital Signs Temp 97.1 F 12/14/17 15:34 Pulse 95 12/15/17 08:28 Resp 18 12/14/17 20:00 BP 121/64 12/15/17 08:28 Pulse Ox 97 12/14/17 15:34 Active Medications: Current Medications Acetaminophen (Tylenol) 650 mg PO Q4HR PRN PRN Reason: Mild Pain / Temp above 100 Stop: 02/09/18 16:57 Al Hydrox/Mg Hydrox/Simethicone (Maalox) 30 ml PO Q4HR PRN PRN Reason: GI DISTRESS Stop: 02/09/18 16:57 Albuterol/Ipratropium (Duoneb Neb) 3 ml HHN Q6HR PRN PRN Reason: WHEEZING/SOB Stop: 02/09/18 20:39 Amlodipine Besylate (Norvasc) 5 mg PO DAILY MOSHE Stop: 02/10/18 08:59 Last Admin: 12/15/17 08:27 Dose: 5 mg Aspirin (Aspirin) 325 mg PO DAILY MOSHE Stop: 02/10/18 08:59 Last Admin: 12/15/17 08:30 Dose: 325 mg Carvedilol (Coreg) 3.125 mg PO BID MOSHE Stop: 02/10/18 08:59 Last Admin: 12/15/17 08:27 Dose: 3.125 mg Citalopram Hydrobromide (Celexa) 10 mg PO DAILY MOSHE PRN Reason: Protocol Stop: 02/10/18 08:59 Last Admin: 12/15/17 08:28 Dose: 10 mg Furosemide (Lasix) 20 mg PO DAILY MOSHE Stop: 02/10/18 08:59 Last Admin: 12/15/17 08:28 Dose: 20 mg Gabapentin (Neurontin) 300 mg PO BID MOSHE Stop: 02/10/18 08:59 Last Admin: 12/15/17 08:27 Dose: 300 mg Lisinopril (Zestril) 20 mg PO DAILY MOSHE Stop: 02/10/18 08:59 Last Admin: 12/15/17 08:28 Dose: 20 mg Lorazepam (Ativan) 0.5 mg PO Q4HR PRN; Protocol PRN Reason: Anxiety Stop: 01/10/18 16:57 Last Admin: 12/14/17 17:30 Dose: 0.5 mg Magnesium Hydroxide (Milk Of Magnesia) 30 ml PO HS PRN PRN Reason: Constipation Magnesium Oxide (Mag-Oxide) 400 mg PO DAILY MOSHE Stop: 02/10/18 08:59 Last Admin: 12/15/17 08:28 Dose: 400 mg Metformin HCl (Glucophage) 1,000 mg PO BIDWM MOSHE Stop: 02/10/18 07:59 Last Admin: 12/15/17 08:27 Dose: 1,000 mg Multivitamins/Vitamin C (Theragran) 1 tab PO DAILY MOSHE Stop: 02/10/18 08:59 Last Admin: 12/15/17 08:27 Dose: 1 tab Nitroglycerin (Nitrostat) 0.4 mg SL Q5MIN PRN PRN Reason: Chest Pain Stop: 02/09/18 20:39 Simvastatin (Zocor) 20 mg PO HS MOSHE PRN Reason: Protocol Stop: 02/09/18 20:59 Last Admin: 12/14/17 20:51 Dose: 20 mg Tamsulosin HCl (Flomax) 0.4 mg PO HS MOSHE Stop: 02/09/18 20:59 Last Admin: 12/14/17 20:51 Dose: 0.4 mg Zolpidem Tartrate (Ambien) 5 mg PO HS PRN PRN Reason: Insomnia Stop: 02/09/18 16:57 Last Admin: 12/14/17 20:52 Dose: 5 mg General: Alert, Other (Confused) HEENT: Atraumatic Neck: Supple Cardiovascular: Regular rate Abdomen: Bowel sounds, Soft Extremities: Other (No edema) Neurological: Other (Unstable gait) Skin: Other (warm and dry) Psych/Mental Status: Other (Confused, not oriented) Assessment/Plan - Problem List Patient Problems: All Active Problems AGITATION AND AGGRESSION (Acute) - Assessment Assessment: Current Active Problems Problem Status Onset AGITATION AND AGGRESSION Acute Patient is awake, alert, confused. DX: Incresed in agitation, HTN, Schizophrenia - Plan Plan: Patient is follow by Psychiatry, Continue with SNF meds. Will continue to monitor.
--- NOTE | 2017-12-16 05:33 | Progress Notes ---
DATE: 12/15/2017 SUBJECTIVE: Staff was spoken to. The patient is interviewed. Mood is noted to be irritable. Affect is constricted. Insight and judgment at this time are noted to be impaired. Impulse control seems to be poor. Coping skills are noted to be poor. The patient has been having difficult time to cope with the stress. The patient is stating that he misses his girlfriend. He needs to be there. ASSESSMENT: The patient is still impulsive. The patient's impulsivity is coming under control, but the patient is getting depressed, isolative, and withdrawn. PLAN: To continue the patient with the supportive therapy, encouraged the patient to verbalize the concerns rather than to act out. [facility]# [id number]
[2017-12-16] MEDS: Multivitamin Tab PO SCH (09:05)
--- NOTE | 2017-12-16 09:30 | General Progress Note ---
Subjective - Review of Systems Service Date: 12/16/17 Subjective: I am ok Objective - Results Result Diagrams: 12/11/17 12:30 12/11/17 12:30 Recent Labs: Laboratory Last Values WBC 9.5 Th/cmm (4.8-10.8) 12/11/17 12:30 RBC 5.29 Mil/cmm (3.80-5.80) 12/11/17 12:30 Hgb 15.5 gm/dL (12-16) 12/11/17 12:30 Hct 46.7 % (41.0-60) 12/11/17 12:30 MCV 88.4 fl (80-99) 12/11/17 12:30 MCH 29.4 pg (27.0-31.0) 12/11/17 12:30 MCHC Differential 33.2 pg (28.0-36.0) 12/11/17 12:30 RDW 15.9 % (11.5-20.0) 12/11/17 12:30 Plt Count 243 Th/cmm (150-400) 12/11/17 12:30 MPV 7.6 fl 12/11/17 12:30 Neutrophils % 67.0 % (40.0-80.0) 12/11/17 12:30 Lymphocytes % 21.5 % (20.0-50.0) 12/11/17 12:30 Monocytes % 5.8 % (2.0-10.0) 12/11/17 12:30 Eosinophils % 3.9 % (0.0-5.0) 12/11/17 12:30 Basophils % 1.8 % (0.0-2.0) 12/11/17 12:30 Sodium 138 mEq/L (136-145) 12/11/17 12:30 Potassium 3.7 mEq/L (3.5-5.1) 12/11/17 12:30 Chloride 105 mEq/L (98-107) 12/11/17 12:30 Carbon Dioxide 22.7 mEq/L (21.0-31.0) 12/11/17 12:30 Anion Gap 14.0 (7.0-16.0) 12/11/17 12:30 BUN 14 mg/dL (7-25) 12/11/17 12:30 Creatinine 0.7 mg/dL (0.7-1.3) 12/11/17 12:30 Est GFR ( Amer) > 60.0 ml/min (>90) 12/11/17 12:30 Est GFR (Non-Af Amer) > 60.0 ml/min 12/11/17 12:30 BUN/Creatinine Ratio 20.0 12/11/17 12:30 Glucose 115 mg/dL (70-105) H 12/11/17 12:30 POC Glucose 115 MG/DL (70 - 105) H 12/15/17 20:11 Hemoglobin A1c % 6.0 % (4.0-6.0) 12/11/17 12:30 Calcium 9.3 mg/dL (8.6-10.3) 12/11/17 12:30 Total Bilirubin 0.6 mg/dL (0.3-1.0) 12/11/17 12:30 AST 16 U/L (13-39) 12/11/17 12:30 ALT 15 U/L (7-52) 12/11/17 12:30 Alkaline Phosphatase 86 U/L (34-104) 12/11/17 12:30 Total Protein 7.0 gm/dL (6.0-8.3) 12/11/17 12:30 Albumin 4.3 gm/dL (4.2-5.5) 12/11/17 12:30 Globulin 2.7 gm/dL 12/11/17 12:30 Albumin/Globulin Ratio 1.6 (1.0-1.8) 12/11/17 12:30 Triglycerides 106 mg/dL (<150) 12/11/17 12:30 Cholesterol 123 mg/dL (<200) 12/11/17 12:30 LDL Cholesterol Direct 96 mg/dL (75-193) 12/11/17 12:30 HDL Cholesterol 26 mg/dL (23-92) 12/11/17 12:30 TSH 1.06 uIU/ml (0.34-5.60) 12/11/17 12:30 Urine Source CLEAN C 12/11/17 12:15 Urine Color YELLOW 12/11/17 12:15 Urine Clarity CLEAR (CLEAR) 12/11/17 12:15 Urine pH 7.0 (4.6 - 8.0) 12/11/17 12:15 Ur Specific [place] 1.015 (1.005-1.030) 12/11/17 12:15 Urine Protein NEGATIVE mg/dL (NEGATIVE) 12/11/17 12:15 Urine Glucose (UA) NEGATIVE mg/dL (NEGATIVE) 12/11/17 12:15 Urine Ketones NEGATIVE mg/dL (NEGATIVE) 12/11/17 12:15 Urine Blood NEGATIVE (NEGATIVE) 12/11/17 12:15 Urine Nitrate NEGATIVE (NEGATIVE) 12/11/17 12:15 Urine Bilirubin NEGATIVE (NEGATIVE) 12/11/17 12:15 Urine Urobilinogen 1.0 E.U./dL (0.2 - 1.0) 12/11/17 12:15 Ur Leukocyte Esterase NEGATIVE (NEGATIVE) 12/11/17 12:15 Urine RBC 0-2 /hpf (0-5) H 12/11/17 12:15 Urine WBC 0-2 /hpf (0-5) 12/11/17 12:15 Ur Epithelial Cells FEW /lpf (FEW) 12/11/17 12:15 Urine Bacteria OCCASIONAL /hpf (NONE SEEN) 12/11/17 12:15 Salicylates < 25.0 mg/L (30.0-100.0) L 12/11/17 12:30 Acetaminophen < 10.0 ug/mL (10.0-30.0) L 12/11/17 12:30 Ethyl Alcohol < 10 mg/dL (0-10) 12/11/17 12:30 RPR NONREACTIVE (NONREACTIVE) 12/11/17 12:30 - Physical Exam Vitals and I&O: Vital Signs Temp 96.9 F 12/15/17 20:14 Pulse 69 12/16/17 09:07 Resp 19 12/15/17 20:14 BP 127/77 12/16/17 09:08 Pulse Ox 99 12/15/17 20:14 Intake & Output 12/15/17 12/16/17 12/16/17 18:59 06:59 18:59 Intake Total 1200 240 Balance 1200 240 Intake: Oral 1200 240 Other: # Voids 4 1 # Bowel Movements 1 Active Medications: Current Medications Acetaminophen (Tylenol) 650 mg PO Q4HR PRN PRN Reason: Mild Pain / Temp above 100 Stop: 02/09/18 16:57 Al Hydrox/Mg Hydrox/Simethicone (Maalox) 30 ml PO Q4HR PRN PRN Reason: GI DISTRESS Stop: 02/09/18 16:57 Albuterol/Ipratropium (Duoneb Neb) 3 ml HHN Q6HR PRN PRN Reason: WHEEZING/SOB Stop: 02/09/18 20:39 Amlodipine Besylate (Norvasc) 5 mg PO DAILY MOSHE Stop: 02/10/18 08:59 Last Admin: 12/16/17 09:07 Dose: 5 mg Aspirin (Aspirin) 325 mg PO DAILY MOSHE Stop: 02/10/18 08:59 Last Admin: 12/16/17 09:07 Dose: 325 mg Carvedilol (Coreg) 3.125 mg PO BID MOSHE Stop: 02/10/18 08:59 Last Admin: 12/16/17 09:05 Dose: 3.125 mg Citalopram Hydrobromide (Celexa) 10 mg PO DAILY MOSHE PRN Reason: Protocol Stop: 02/10/18 08:59 Last Admin: 12/16/17 09:08 Dose: 10 mg Furosemide (Lasix) 20 mg PO DAILY MOSHE Stop: 02/10/18 08:59 Last Admin: 12/16/17 09:08 Dose: 20 mg Gabapentin (Neurontin) 300 mg PO BID MOSHE Stop: 02/10/18 08:59 Last Admin: 12/16/17 09:08 Dose: 300 mg Lisinopril (Zestril) 20 mg PO DAILY MOSHE Stop: 02/10/18 08:59 Last Admin: 12/16/17 09:06 Dose: 20 mg Lorazepam (Ativan) 0.5 mg PO Q4HR PRN; Protocol PRN Reason: Anxiety Stop: 01/10/18 16:57 Last Admin: 12/15/17 22:58 Dose: 0.5 mg Magnesium Hydroxide (Milk Of Magnesia) 30 ml PO HS PRN PRN Reason: Constipation Magnesium Oxide (Mag-Oxide) 400 mg PO DAILY MOSHE Stop: 02/10/18 08:59 Last Admin: 12/16/17 09:07 Dose: 400 mg Metformin HCl (Glucophage) 1,000 mg PO BIDWM MOSHE Stop: 02/10/18 07:59 Last Admin: 12/16/17 07:51 Dose: 1,000 mg Multivitamins/Vitamin C (Theragran) 1 tab PO DAILY MOSHE Stop: 02/10/18 08:59 Last Admin: 12/16/17 09:05 Dose: 1 tab Nitroglycerin (Nitrostat) 0.4 mg SL Q5MIN PRN PRN Reason: Chest Pain Stop: 02/09/18 20:39 Simvastatin (Zocor) 20 mg PO HS MOSHE PRN Reason: Protocol Stop: 02/09/18 20:59 Last Admin: 12/15/17 20:40 Dose: 20 mg Tamsulosin HCl (Flomax) 0.4 mg PO HS MOSHE Stop: 02/09/18 20:59 Last Admin: 12/15/17 20:40 Dose: 0.4 mg Zolpidem Tartrate (Ambien) 5 mg PO HS PRN PRN Reason: Insomnia Stop: 02/09/18 16:57 Last Admin: 12/15/17 20:40 Dose: 5 mg General: Alert, Other (Confused) HEENT: Atraumatic Neck: Supple Cardiovascular: Regular rate Abdomen: Bowel sounds, Soft Extremities: Other (No edema) Neurological: Other (Unstable gait) Skin: Other (warm and dry) Psych/Mental Status: Other (Confused, not oriented) Assessment/Plan - Problem List Patient Problems: All Active Problems AGITATION AND AGGRESSION (Acute) - Assessment Assessment: Current Active Problems Problem Status Onset AGITATION AND AGGRESSION Acute Patient is awake, alert, confused. DX: Incresed in agitation, HTN, Schizophrenia - Plan Plan: Patient is follow by Psychiatry, Continue with SN[facility] meds. Will continue to monitor.
--- NOTE | 2017-12-16 17:03 | Progress Notes ---
DATE: 12/16/2017 PSYCHIATRIC PROGRESS NOTE SUBJECTIVE: Staff was spoken to. The patient is interviewed. The patient is feeling very depressed. The patient is stating that he lost his girlfriend. It has been 2 days that he has spoken to her. The patient is stating that the girlfriend has a knack of getting the boyfriends pretty easily and he thinks that he might have lost her as a friend. Coping skills are noted to be very poor. The patient is still feeling frustrated. Insight and judgment at this time are noted to be still impaired. Impulse control seems to be improving. ASSESSMENT: The patient is still depressed. PLAN: To continue the patient with the current medications. I encouraged the patient to verbalize the concerns rather than to act out. JOB# [id number]
[2017-12-17] MEDS: Multivitamin Tab PO SCH (08:41)
--- NOTE | 2017-12-17 11:47 | General Progress Note ---
Subjective - Review of Systems Service Date: 12/17/17 Subjective: I am ok Objective - Results Result Diagrams: 12/11/17 12:30 12/11/17 12:30 Recent Labs: Laboratory Last Values WBC 9.5 Th/cmm (4.8-10.8) 12/11/17 12:30 RBC 5.29 Mil/cmm (3.80-5.80) 12/11/17 12:30 Hgb 15.5 gm/dL (12-16) 12/11/17 12:30 Hct 46.7 % (41.0-60) 12/11/17 12:30 MCV 88.4 fl (80-99) 12/11/17 12:30 MCH 29.4 pg (27.0-31.0) 12/11/17 12:30 MCHC Differential 33.2 pg (28.0-36.0) 12/11/17 12:30 RDW 15.9 % (11.5-20.0) 12/11/17 12:30 Plt Count 243 Th/cmm (150-400) 12/11/17 12:30 MPV 7.6 fl 12/11/17 12:30 Neutrophils % 67.0 % (40.0-80.0) 12/11/17 12:30 Lymphocytes % 21.5 % (20.0-50.0) 12/11/17 12:30 Monocytes % 5.8 % (2.0-10.0) 12/11/17 12:30 Eosinophils % 3.9 % (0.0-5.0) 12/11/17 12:30 Basophils % 1.8 % (0.0-2.0) 12/11/17 12:30 Sodium 138 mEq/L (136-145) 12/11/17 12:30 Potassium 3.7 mEq/L (3.5-5.1) 12/11/17 12:30 Chloride 105 mEq/L (98-107) 12/11/17 12:30 Carbon Dioxide 22.7 mEq/L (21.0-31.0) 12/11/17 12:30 Anion Gap 14.0 (7.0-16.0) 12/11/17 12:30 BUN 14 mg/dL (7-25) 12/11/17 12:30 Creatinine 0.7 mg/dL (0.7-1.3) 12/11/17 12:30 Est GFR ( Amer) > 60.0 ml/min (>90) 12/11/17 12:30 Est GFR (Non-Af Amer) > 60.0 ml/min 12/11/17 12:30 BUN/Creatinine Ratio 20.0 12/11/17 12:30 Glucose 115 mg/dL (70-105) H 12/11/17 12:30 POC Glucose 115 MG/DL (70 - 105) H 12/15/17 20:11 Hemoglobin A1c % 6.0 % (4.0-6.0) 12/11/17 12:30 Calcium 9.3 mg/dL (8.6-10.3) 12/11/17 12:30 Total Bilirubin 0.6 mg/dL (0.3-1.0) 12/11/17 12:30 AST 16 U/L (13-39) 12/11/17 12:30 ALT 15 U/L (7-52) 12/11/17 12:30 Alkaline Phosphatase 86 U/L (34-104) 12/11/17 12:30 Total Protein 7.0 gm/dL (6.0-8.3) 12/11/17 12:30 Albumin 4.3 gm/dL (4.2-5.5) 12/11/17 12:30 Globulin 2.7 gm/dL 12/11/17 12:30 Albumin/Globulin Ratio 1.6 (1.0-1.8) 12/11/17 12:30 Triglycerides 106 mg/dL (<150) 12/11/17 12:30 Cholesterol 123 mg/dL (<200) 12/11/17 12:30 LDL Cholesterol Direct 96 mg/dL (75-193) 12/11/17 12:30 HDL Cholesterol 26 mg/dL (23-92) 12/11/17 12:30 TSH 1.06 uIU/ml (0.34-5.60) 12/11/17 12:30 Urine Source CLEAN C 12/11/17 12:15 Urine Color YELLOW 12/11/17 12:15 Urine Clarity CLEAR (CLEAR) 12/11/17 12:15 Urine pH 7.0 (4.6 - 8.0) 12/11/17 12:15 Ur Specific [place] 1.015 (1.005-1.030) 12/11/17 12:15 Urine Protein NEGATIVE mg/dL (NEGATIVE) 12/11/17 12:15 Urine Glucose (UA) NEGATIVE mg/dL (NEGATIVE) 12/11/17 12:15 Urine Ketones NEGATIVE mg/dL (NEGATIVE) 12/11/17 12:15 Urine Blood NEGATIVE (NEGATIVE) 12/11/17 12:15 Urine Nitrate NEGATIVE (NEGATIVE) 12/11/17 12:15 Urine Bilirubin NEGATIVE (NEGATIVE) 12/11/17 12:15 Urine Urobilinogen 1.0 E.U./dL (0.2 - 1.0) 12/11/17 12:15 Ur Leukocyte Esterase NEGATIVE (NEGATIVE) 12/11/17 12:15 Urine RBC 0-2 /hpf (0-5) H 12/11/17 12:15 Urine WBC 0-2 /hpf (0-5) 12/11/17 12:15 Ur Epithelial Cells FEW /lpf (FEW) 12/11/17 12:15 Urine Bacteria OCCASIONAL /hpf (NONE SEEN) 12/11/17 12:15 Salicylates < 25.0 mg/L (30.0-100.0) L 12/11/17 12:30 Acetaminophen < 10.0 ug/mL (10.0-30.0) L 12/11/17 12:30 Ethyl Alcohol < 10 mg/dL (0-10) 12/11/17 12:30 RPR NONREACTIVE (NONREACTIVE) 12/11/17 12:30 - Physical Exam Vitals and I&O: Vital Signs Temp 97.5 F 12/17/17 06:33 Pulse 70 12/17/17 08:42 Resp 20 12/17/17 06:33 BP 133/81 12/17/17 08:43 Pulse Ox 96 12/17/17 06:33 Intake & Output 12/16/17 12/17/17 12/17/17 18:59 06:59 18:59 Intake Total 2200 120 Balance 2200 120 Intake: Oral 2200 120 Other: # Voids 4 3 # Bowel Movements 1 Active Medications: Current Medications Acetaminophen (Tylenol) 650 mg PO Q4HR PRN PRN Reason: Mild Pain / Temp above 100 Stop: 02/09/18 16:57 Al Hydrox/Mg Hydrox/Simethicone (Maalox) 30 ml PO Q4HR PRN PRN Reason: GI DISTRESS Stop: 02/09/18 16:57 Albuterol/Ipratropium (Duoneb Neb) 3 ml HHN Q6HR PRN PRN Reason: WHEEZING/SOB Stop: 02/09/18 20:39 Amlodipine Besylate (Norvasc) 5 mg PO DAILY MOSHE Stop: 02/10/18 08:59 Last Admin: 12/17/17 08:42 Dose: 5 mg Aspirin (Aspirin) 325 mg PO DAILY MOSHE Stop: 02/10/18 08:59 Last Admin: 12/17/17 08:41 Dose: 325 mg Carvedilol (Coreg) 3.125 mg PO BID MOSHE Stop: 02/10/18 08:59 Last Admin: 12/17/17 08:42 Dose: 3.125 mg Citalopram Hydrobromide (Celexa) 10 mg PO DAILY MOSHE PRN Reason: Protocol Stop: 02/10/18 08:59 Last Admin: 12/17/17 08:42 Dose: 10 mg Furosemide (Lasix) 20 mg PO DAILY MOSHE Stop: 02/10/18 08:59 Last Admin: 12/17/17 08:43 Dose: 20 mg Gabapentin (Neurontin) 300 mg PO BID MOSHE Stop: 02/10/18 08:59 Last Admin: 12/17/17 08:41 Dose: 300 mg Lisinopril (Zestril) 20 mg PO DAILY MOSHE Stop: 02/10/18 08:59 Last Admin: 12/17/17 08:42 Dose: 20 mg Lorazepam (Ativan) 0.5 mg PO Q4HR PRN; Protocol PRN Reason: Anxiety Stop: 01/10/18 16:57 Last Admin: 12/16/17 23:35 Dose: 0.5 mg Magnesium Hydroxide (Milk Of Magnesia) 30 ml PO HS PRN PRN Reason: Constipation Magnesium Oxide (Mag-Oxide) 400 mg PO DAILY MOSHE Stop: 02/10/18 08:59 Last Admin: 12/17/17 08:41 Dose: 400 mg Metformin HCl (Glucophage) 1,000 mg PO BIDWM MOSHE Stop: 02/10/18 07:59 Last Admin: 12/17/17 08:41 Dose: 1,000 mg Multivitamins/Vitamin C (Theragran) 1 tab PO DAILY MOSHE Stop: 02/10/18 08:59 Last Admin: 12/17/17 08:41 Dose: 1 tab Nitroglycerin (Nitrostat) 0.4 mg SL Q5MIN PRN PRN Reason: Chest Pain Stop: 02/09/18 20:39 Simvastatin (Zocor) 20 mg PO HS MOSHE PRN Reason: Protocol Stop: 02/09/18 20:59 Last Admin: 12/16/17 21:24 Dose: 20 mg Tamsulosin HCl (Flomax) 0.4 mg PO HS MOSHE Stop: 02/09/18 20:59 Last Admin: 12/16/17 21:24 Dose: 0.4 mg Zolpidem Tartrate (Ambien) 5 mg PO HS PRN PRN Reason: Insomnia Stop: 02/09/18 16:57 Last Admin: 12/16/17 21:24 Dose: 5 mg General: Alert, Other (Confused) HEENT: Atraumatic Neck: Supple Cardiovascular: Regular rate Abdomen: Bowel sounds, Soft Extremities: Other (No edema) Neurological: Other (Unstable gait) Skin: Other (warm and dry) Psych/Mental Status: Other (Confused, not oriented) Assessment/Plan - Problem List Patient Problems: All Active Problems AGITATION AND AGGRESSION (Acute) - Assessment Assessment: Current Active Problems Problem Status Onset AGITATION AND AGGRESSION Acute Patient is awake, alert, confused. DX: Incresed in agitation, HTN, Schizophrenia. - Plan Plan: Patient is follow by Psychiatry, Continue with SNF meds. Will continue to monitor. Nutritional Asmnt/Malnutr-PDOC - Dietary Evaluation Malnutrition Findings (Please click <Entered> for more info): Nutritional Asmnt/Malnutrition Start: 12/16/17 14: 18 Text: Status: Complete Freq: Document 12/16/17 14:18 HENG (Rec: 12/16/17 14:26 [email or web address]) Nutritional Asmnt/Malnutrition Patient General Information Nutritional Screening Moderate Risk Diagnosis psychosis Pertinent Medical Hx/Surgical Hx CAD, HTN, psychosis, schizophrenia, dyslipidemia Subjective Information Per EMR, PO intake 100% of meals. Current Diet Order/ Nutrition Support DARBY, double portion Pertinent Medications laisx, mag-oxide, glucophage, theragran Pertinent Labs 4/2 glucose 115, POC 107-115, A1c 6.0 Nutritional Hx/Data Height 1.7 m Height (Calculated Centimeters) 170.2 Current Weight (lbs) 90.718 kg Weight (Calculated Kilograms) 90.7 Weight (Calculated Grams) 84894.5 [place] Body Weight 148 Body Mass Index (BMI) 31.3 Weight Status Obese GI Symptoms GI Symptoms None Last BM 4/6 Difficult in: None Skin Integrity/Comment: bruises Current %PO Good (75-100%) Estimated Nutritional Goals BEE in Kcals: Adj wt of IBW Calories/Kcals/Kg 25-30 Kcals Calculated 4268-7650 Protein: Adj wt of IBW Protein g/k Protein Calculated 73 Fluid: ml 1825-2190ml (1ml/kcal) Intervention/Recommendation Comments 1. Continue with current diet as ordered. Continue monitor blood sugar. 2. Monitor PO intake, wt, labs and skin integrity 3. F/U as low risk in 7d ays, 12/23 Expected Outcomes/Goals Expected Outcomes/Goals 1. PO intake to meet at least 75% of nutritional needs. 2. Wt stability, skin to remain intact, labs to approach WNL.
--- NOTE | 2017-12-17 17:09 | Progress Notes ---
DATE: 12/17/2017 SUBJECTIVE: Staff was spoken to. The patient is interviewed. Mood is noted to be irritable. Affect is constricted. Coping skills are noted to be still poor. The patient has been having difficult time. The patient is stating that he might have lost his girlfriend. As per the report obtained from the staff, the patient has been getting into other people's rooms and has been trying to behave sexually and he is not welcomed back at the facility, but the patient is stating that it was never the problem and he should not be charged with that kind of allegation. The patient at this time has been very upset that he might have lost his girlfriend and wants to return to the facility. ASSESSMENT: The patient is still depressed. PLAN: To continue the patient with the current medications and follow. JOB# [id number]
--- NOTE | 2017-12-18 08:46 | General Progress Note ---
Subjective - Review of Systems Service Date: 12/18/17 Subjective: I am ok. Objective - Results Result Diagrams: 12/11/17 12:30 12/11/17 12:30 Recent Labs: Laboratory Last Values WBC 9.5 Th/cmm (4.8-10.8) 12/11/17 12:30 RBC 5.29 Mil/cmm (3.80-5.80) 12/11/17 12:30 Hgb 15.5 gm/dL (12-16) 12/11/17 12:30 Hct 46.7 % (41.0-60) 12/11/17 12:30 MCV 88.4 fl (80-99) 12/11/17 12:30 MCH 29.4 pg (27.0-31.0) 12/11/17 12:30 MCHC Differential 33.2 pg (28.0-36.0) 12/11/17 12:30 RDW 15.9 % (11.5-20.0) 12/11/17 12:30 Plt Count 243 Th/cmm (150-400) 12/11/17 12:30 MPV 7.6 fl 12/11/17 12:30 Neutrophils % 67.0 % (40.0-80.0) 12/11/17 12:30 Lymphocytes % 21.5 % (20.0-50.0) 12/11/17 12:30 Monocytes % 5.8 % (2.0-10.0) 12/11/17 12:30 Eosinophils % 3.9 % (0.0-5.0) 12/11/17 12:30 Basophils % 1.8 % (0.0-2.0) 12/11/17 12:30 Sodium 138 mEq/L (136-145) 12/11/17 12:30 Potassium 3.7 mEq/L (3.5-5.1) 12/11/17 12:30 Chloride 105 mEq/L (98-107) 12/11/17 12:30 Carbon Dioxide 22.7 mEq/L (21.0-31.0) 12/11/17 12:30 Anion Gap 14.0 (7.0-16.0) 12/11/17 12:30 BUN 14 mg/dL (7-25) 12/11/17 12:30 Creatinine 0.7 mg/dL (0.7-1.3) 12/11/17 12:30 Est GFR ( Amer) > 60.0 ml/min (>90) 12/11/17 12:30 Est GFR (Non-Af Amer) > 60.0 ml/min 12/11/17 12:30 BUN/Creatinine Ratio 20.0 12/11/17 12:30 Glucose 115 mg/dL (70-105) H 12/11/17 12:30 POC Glucose 115 MG/DL (70 - 105) H 12/15/17 20:11 Hemoglobin A1c % 6.0 % (4.0-6.0) 12/11/17 12:30 Calcium 9.3 mg/dL (8.6-10.3) 12/11/17 12:30 Total Bilirubin 0.6 mg/dL (0.3-1.0) 12/11/17 12:30 AST 16 U/L (13-39) 12/11/17 12:30 ALT 15 U/L (7-52) 12/11/17 12:30 Alkaline Phosphatase 86 U/L (34-104) 12/11/17 12:30 Total Protein 7.0 gm/dL (6.0-8.3) 12/11/17 12:30 Albumin 4.3 gm/dL (4.2-5.5) 12/11/17 12:30 Globulin 2.7 gm/dL 12/11/17 12:30 Albumin/Globulin Ratio 1.6 (1.0-1.8) 12/11/17 12:30 Triglycerides 106 mg/dL (<150) 12/11/17 12:30 Cholesterol 123 mg/dL (<200) 12/11/17 12:30 LDL Cholesterol Direct 96 mg/dL (75-193) 12/11/17 12:30 HDL Cholesterol 26 mg/dL (23-92) 12/11/17 12:30 TSH 1.06 uIU/ml (0.34-5.60) 12/11/17 12:30 Urine Source CLEAN C 12/11/17 12:15 Urine Color YELLOW 12/11/17 12:15 Urine Clarity CLEAR (CLEAR) 12/11/17 12:15 Urine pH 7.0 (4.6 - 8.0) 12/11/17 12:15 Ur Specific [place] 1.015 (1.005-1.030) 12/11/17 12:15 Urine Protein NEGATIVE mg/dL (NEGATIVE) 12/11/17 12:15 Urine Glucose (UA) NEGATIVE mg/dL (NEGATIVE) 12/11/17 12:15 Urine Ketones NEGATIVE mg/dL (NEGATIVE) 12/11/17 12:15 Urine Blood NEGATIVE (NEGATIVE) 12/11/17 12:15 Urine Nitrate NEGATIVE (NEGATIVE) 12/11/17 12:15 Urine Bilirubin NEGATIVE (NEGATIVE) 12/11/17 12:15 Urine Urobilinogen 1.0 E.U./dL (0.2 - 1.0) 12/11/17 12:15 Ur Leukocyte Esterase NEGATIVE (NEGATIVE) 12/11/17 12:15 Urine RBC 0-2 /hpf (0-5) H 12/11/17 12:15 Urine WBC 0-2 /hpf (0-5) 12/11/17 12:15 Ur Epithelial Cells FEW /lpf (FEW) 12/11/17 12:15 Urine Bacteria OCCASIONAL /hpf (NONE SEEN) 12/11/17 12:15 Salicylates < 25.0 mg/L (30.0-100.0) L 12/11/17 12:30 Acetaminophen < 10.0 ug/mL (10.0-30.0) L 12/11/17 12:30 Ethyl Alcohol < 10 mg/dL (0-10) 12/11/17 12:30 RPR NONREACTIVE (NONREACTIVE) 12/11/17 12:30 - Physical Exam Vitals and I&O: Vital Signs Temp 98.2 F 12/18/17 06:14 Pulse 59 12/18/17 06:14 Resp 20 12/18/17 06:14 BP 164/76 12/18/17 06:14 Pulse Ox 97 12/18/17 06:14 Intake & Output 12/17/17 12/18/17 12/18/17 18:59 06:59 18:59 Intake Total 2200 240 Balance 2200 240 Weight (lbs) 90.718 kg Intake: Oral 2200 240 Other: # Voids 4 3 # Bowel Movements 0 1 Weight Source Bedscale Active Medications: Current Medications Acetaminophen (Tylenol) 650 mg PO Q4HR PRN PRN Reason: Mild Pain / Temp above 100 Stop: 02/09/18 16:57 Al Hydrox/Mg Hydrox/Simethicone (Maalox) 30 ml PO Q4HR PRN PRN Reason: GI DISTRESS Stop: 02/09/18 16:57 Albuterol/Ipratropium (Duoneb Neb) 3 ml HHN Q6HR PRN PRN Reason: WHEEZING/SOB Stop: 02/09/18 20:39 Amlodipine Besylate (Norvasc) 5 mg PO DAILY MOSHE Stop: 02/10/18 08:59 Last Admin: 12/17/17 08:42 Dose: 5 mg Aspirin (Aspirin) 325 mg PO DAILY MOSHE Stop: 02/10/18 08:59 Last Admin: 12/17/17 08:41 Dose: 325 mg Carvedilol (Coreg) 3.125 mg PO BID MOSHE Stop: 02/10/18 08:59 Last Admin: 12/17/17 16:37 Dose: 3.125 mg Citalopram Hydrobromide (Celexa) 10 mg PO DAILY MOSHE PRN Reason: Protocol Stop: 02/10/18 08:59 Last Admin: 12/17/17 08:42 Dose: 10 mg Furosemide (Lasix) 20 mg PO DAILY MOSHE Stop: 02/10/18 08:59 Last Admin: 12/17/17 08:43 Dose: 20 mg Gabapentin (Neurontin) 300 mg PO BID MOSHE Stop: 02/10/18 08:59 Last Admin: 12/17/17 16:36 Dose: 300 mg Lisinopril (Zestril) 20 mg PO DAILY MOSHE Stop: 02/10/18 08:59 Last Admin: 12/17/17 08:42 Dose: 20 mg Lorazepam (Ativan) 0.5 mg PO Q4HR PRN; Protocol PRN Reason: Anxiety Stop: 01/10/18 16:57 Last Admin: 12/17/17 21:04 Dose: 0.5 mg Magnesium Hydroxide (Milk Of Magnesia) 30 ml PO HS PRN PRN Reason: Constipation Magnesium Oxide (Mag-Oxide) 400 mg PO DAILY MOSHE Stop: 02/10/18 08:59 Last Admin: 12/17/17 08:41 Dose: 400 mg Metformin HCl (Glucophage) 1,000 mg PO BIDWM MOSHE Stop: 02/10/18 07:59 Last Admin: 12/17/17 08:41 Dose: 1,000 mg Multivitamins/Vitamin C (Theragran) 1 tab PO DAILY MOSHE Stop: 02/10/18 08:59 Last Admin: 12/17/17 08:41 Dose: 1 tab Nitroglycerin (Nitrostat) 0.4 mg SL Q5MIN PRN PRN Reason: Chest Pain Stop: 02/09/18 20:39 Simvastatin (Zocor) 20 mg PO HS MOSHE PRN Reason: Protocol Stop: 02/09/18 20:59 Last Admin: 12/17/17 21:04 Dose: 20 mg Tamsulosin HCl (Flomax) 0.4 mg PO HS MOSHE Stop: 02/09/18 20:59 Last Admin: 12/17/17 21:03 Dose: 0.4 mg Zolpidem Tartrate (Ambien) 5 mg PO HS PRN PRN Reason: Insomnia Stop: 02/09/18 16:57 Last Admin: 12/17/17 21:04 Dose: 5 mg General: Alert, Other (Confused) HEENT: Atraumatic Neck: Supple Cardiovascular: Regular rate Abdomen: Bowel sounds, Soft Extremities: Other (No edema) Neurological: Other (Unstable gait) Skin: Other (warm and dry) Psych/Mental Status: Other (Confused, not oriented) Assessment/Plan - Problem List Patient Problems: All Active Problems AGITATION AND AGGRESSION (Acute) - Assessment Assessment: Current Active Problems Problem Status Onset AGITATION AND AGGRESSION Acute Patient is awake, alert, confused. DX: Incresed in agitation, HTN, Schizophrenia. - Plan Plan: Patient is follow by Psychiatry, Continue with SNF meds. Will continue to monitor. Nutritional Asmnt/Malnutr-PDOC - Dietary Evaluation Malnutrition Findings (Please click <Entered> for more info): Nutritional Asmnt/Malnutrition Start: 12/16/17 14: 18 Text: Status: Complete Freq: Document 12/16/17 14:18 HITESH (Rec: 12/16/17 14:26 [email or web address] Nutritional Asmnt/Malnutrition Patient General Information Nutritional Screening Moderate Risk Diagnosis psychosis Pertinent Medical Hx/Surgical Hx CAD, HTN, psychosis, schizophrenia, dyslipidemia Subjective Information Per EMR, PO intake 100% of meals. Current Diet Order/ Nutrition Support DARBY, double portion Pertinent Medications laisx, mag-oxide, glucophage, theragran Pertinent Labs 4/2 glucose 115, POC 107-115, A1c 6.0 Nutritional Hx/Data Height 1.7 m Height (Calculated Centimeters) 170.2 Current Weight (lbs) 90.718 kg Weight (Calculated Kilograms) 90.7 Weight (Calculated Grams) 56099.5 [place] Body Weight 148 Body Mass Index (BMI) 31.3 Weight Status Obese GI Symptoms GI Symptoms None Last BM 4/6 Difficult in: None Skin Integrity/Comment: bruises Current %PO Good (75-100%) Estimated Nutritional Goals BEE in Kcals: Adj wt of IBW Calories/Kcals/Kg 25-30 Kcals Calculated 8969-0997 Protein: Adj wt of IBW Protein g/k Protein Calculated 73 Fluid: ml 1825-2190ml (1ml/kcal) Intervention/Recommendation Comments 1. Continue with current diet as ordered. Continue monitor blood sugar. 2. Monitor PO intake, wt, labs and skin integrity 3. F/U as low risk in 7d ays, 12/23 Expected Outcomes/Goals Expected Outcomes/Goals 1. PO intake to meet at least 75% of nutritional needs. 2. Wt stability, skin to remain intact, labs to approach WNL.
[2017-12-18] MEDS: Multivitamin Tab PO SCH (09:00)
--- NOTE | 2017-12-19 02:06 | Progress Notes ---
DATE: 12/18/2017 SUBJECTIVE: Staff was spoken to. The patient is interviewed. Mood is noted to be irritable. Affect is constricted. The patient is stating that he is getting frustrated for being in here for too long and is stating that he is going to missing his girlfriend. Coping skills are noted to be still poor. The patient reported to have been behaving inappropriately and has been trying to knock on the doors of the other people and wanted to have intimacy with them and hence the patient's behavior is being closely monitored. So far, the patient has been on Celexa and has been able to tolerate the medications. No untoward behavior is noted. ASSESSMENT: The patient is depressed. PLAN: To continue the patient with the supportive therapy, encourage the patient to verbalize the concerns rather than to act out. JOB# [id number]
--- NOTE | 2017-12-19 08:37 | General Progress Note ---
Subjective - Review of Systems Service Date: 12/19/17 Subjective: I am ok. Objective - Results Result Diagrams: 12/11/17 12:30 12/11/17 12:30 Recent Labs: Laboratory Last Values WBC 9.5 Th/cmm (4.8-10.8) 12/11/17 12:30 RBC 5.29 Mil/cmm (3.80-5.80) 12/11/17 12:30 Hgb 15.5 gm/dL (12-16) 12/11/17 12:30 Hct 46.7 % (41.0-60) 12/11/17 12:30 MCV 88.4 fl (80-99) 12/11/17 12:30 MCH 29.4 pg (27.0-31.0) 12/11/17 12:30 MCHC Differential 33.2 pg (28.0-36.0) 12/11/17 12:30 RDW 15.9 % (11.5-20.0) 12/11/17 12:30 Plt Count 243 Th/cmm (150-400) 12/11/17 12:30 MPV 7.6 fl 12/11/17 12:30 Neutrophils % 67.0 % (40.0-80.0) 12/11/17 12:30 Lymphocytes % 21.5 % (20.0-50.0) 12/11/17 12:30 Monocytes % 5.8 % (2.0-10.0) 12/11/17 12:30 Eosinophils % 3.9 % (0.0-5.0) 12/11/17 12:30 Basophils % 1.8 % (0.0-2.0) 12/11/17 12:30 Sodium 138 mEq/L (136-145) 12/11/17 12:30 Potassium 3.7 mEq/L (3.5-5.1) 12/11/17 12:30 Chloride 105 mEq/L (98-107) 12/11/17 12:30 Carbon Dioxide 22.7 mEq/L (21.0-31.0) 12/11/17 12:30 Anion Gap 14.0 (7.0-16.0) 12/11/17 12:30 BUN 14 mg/dL (7-25) 12/11/17 12:30 Creatinine 0.7 mg/dL (0.7-1.3) 12/11/17 12:30 Est GFR ( Amer) > 60.0 ml/min (>90) 12/11/17 12:30 Est GFR (Non-Af Amer) > 60.0 ml/min 12/11/17 12:30 BUN/Creatinine Ratio 20.0 12/11/17 12:30 Glucose 115 mg/dL (70-105) H 12/11/17 12:30 POC Glucose 115 MG/DL (70 - 105) H 12/15/17 20:11 Hemoglobin A1c % 6.0 % (4.0-6.0) 12/11/17 12:30 Calcium 9.3 mg/dL (8.6-10.3) 12/11/17 12:30 Total Bilirubin 0.6 mg/dL (0.3-1.0) 12/11/17 12:30 AST 16 U/L (13-39) 12/11/17 12:30 ALT 15 U/L (7-52) 12/11/17 12:30 Alkaline Phosphatase 86 U/L (34-104) 12/11/17 12:30 Total Protein 7.0 gm/dL (6.0-8.3) 12/11/17 12:30 Albumin 4.3 gm/dL (4.2-5.5) 12/11/17 12:30 Globulin 2.7 gm/dL 12/11/17 12:30 Albumin/Globulin Ratio 1.6 (1.0-1.8) 12/11/17 12:30 Triglycerides 106 mg/dL (<150) 12/11/17 12:30 Cholesterol 123 mg/dL (<200) 12/11/17 12:30 LDL Cholesterol Direct 96 mg/dL (75-193) 12/11/17 12:30 HDL Cholesterol 26 mg/dL (23-92) 12/11/17 12:30 TSH 1.06 uIU/ml (0.34-5.60) 12/11/17 12:30 Urine Source CLEAN C 12/11/17 12:15 Urine Color YELLOW 12/11/17 12:15 Urine Clarity CLEAR (CLEAR) 12/11/17 12:15 Urine pH 7.0 (4.6 - 8.0) 12/11/17 12:15 Ur Specific [place] 1.015 (1.005-1.030) 12/11/17 12:15 Urine Protein NEGATIVE mg/dL (NEGATIVE) 12/11/17 12:15 Urine Glucose (UA) NEGATIVE mg/dL (NEGATIVE) 12/11/17 12:15 Urine Ketones NEGATIVE mg/dL (NEGATIVE) 12/11/17 12:15 Urine Blood NEGATIVE (NEGATIVE) 12/11/17 12:15 Urine Nitrate NEGATIVE (NEGATIVE) 12/11/17 12:15 Urine Bilirubin NEGATIVE (NEGATIVE) 12/11/17 12:15 Urine Urobilinogen 1.0 E.U./dL (0.2 - 1.0) 12/11/17 12:15 Ur Leukocyte Esterase NEGATIVE (NEGATIVE) 12/11/17 12:15 Urine RBC 0-2 /hpf (0-5) H 12/11/17 12:15 Urine WBC 0-2 /hpf (0-5) 12/11/17 12:15 Ur Epithelial Cells FEW /lpf (FEW) 12/11/17 12:15 Urine Bacteria OCCASIONAL /hpf (NONE SEEN) 12/11/17 12:15 Salicylates < 25.0 mg/L (30.0-100.0) L 12/11/17 12:30 Acetaminophen < 10.0 ug/mL (10.0-30.0) L 12/11/17 12:30 Ethyl Alcohol < 10 mg/dL (0-10) 12/11/17 12:30 RPR NONREACTIVE (NONREACTIVE) 12/11/17 12:30 - Physical Exam Vitals and I&O: Vital Signs Temp 98.6 F 12/19/17 06:27 Pulse 85 12/19/17 06:27 Resp 20 12/19/17 06:27 BP 150/91 12/19/17 06:27 Pulse Ox 98 12/19/17 06:27 Intake & Output 12/18/17 12/19/17 12/19/17 18:59 06:59 18:59 Intake Total 1200 240 Balance 1200 240 Weight (lbs) 90.718 kg Intake: Oral 1200 240 Other: # Voids 4 3 # Bowel Movements 1 0 Weight Source Bedscale Active Medications: Current Medications Acetaminophen (Tylenol) 650 mg PO Q4HR PRN PRN Reason: Mild Pain / Temp above 100 Stop: 02/09/18 16:57 Last Admin: 12/19/17 02:46 Dose: 650 mg Al Hydrox/Mg Hydrox/Simethicone (Maalox) 30 ml PO Q4HR PRN PRN Reason: GI DISTRESS Stop: 02/09/18 16:57 Albuterol/Ipratropium (Duoneb Neb) 3 ml HHN Q6HR PRN PRN Reason: WHEEZING/SOB Stop: 02/09/18 20:39 Amlodipine Besylate (Norvasc) 5 mg PO DAILY MOSHE Stop: 02/10/18 08:59 Last Admin: 12/18/17 09:02 Dose: 5 mg Aspirin (Aspirin) 325 mg PO DAILY MOSHE Stop: 02/10/18 08:59 Last Admin: 12/18/17 09:00 Dose: 325 mg Carvedilol (Coreg) 3.125 mg PO BID MOSHE Stop: 02/10/18 08:59 Last Admin: 12/18/17 17:11 Dose: 3.125 mg Citalopram Hydrobromide (Celexa) 10 mg PO DAILY MOSHE PRN Reason: Protocol Stop: 02/10/18 08:59 Last Admin: 12/18/17 09:00 Dose: 10 mg Furosemide (Lasix) 20 mg PO DAILY MOSHE Stop: 02/10/18 08:59 Last Admin: 12/18/17 09:02 Dose: 20 mg Gabapentin (Neurontin) 300 mg PO BID MOSHE Stop: 02/10/18 08:59 Last Admin: 12/18/17 17:10 Dose: 300 mg Lisinopril (Zestril) 20 mg PO DAILY MOSHE Stop: 02/10/18 08:59 Last Admin: 12/18/17 09:02 Dose: 20 mg Lorazepam (Ativan) 0.5 mg PO Q4HR PRN; Protocol PRN Reason: Anxiety Stop: 01/10/18 16:57 Last Admin: 12/19/17 01:39 Dose: 0.5 mg Magnesium Hydroxide (Milk Of Magnesia) 30 ml PO HS PRN PRN Reason: Constipation Magnesium Oxide (Mag-Oxide) 400 mg PO DAILY MOSHE Stop: 02/10/18 08:59 Last Admin: 12/18/17 09:00 Dose: 400 mg Metformin HCl (Glucophage) 1,000 mg PO BIDWM MOSHE Stop: 02/10/18 07:59 Last Admin: 12/18/17 17:09 Dose: 1,000 mg Multivitamins/Vitamin C (Theragran) 1 tab PO DAILY MOSHE Stop: 02/10/18 08:59 Last Admin: 12/18/17 09:00 Dose: 1 tab Nitroglycerin (Nitrostat) 0.4 mg SL Q5MIN PRN PRN Reason: Chest Pain Stop: 02/09/18 20:39 Simvastatin (Zocor) 20 mg PO HS MOSHE PRN Reason: Protocol Stop: 02/09/18 20:59 Last Admin: 12/18/17 21:17 Dose: 20 mg Tamsulosin HCl (Flomax) 0.4 mg PO HS MOSHE Stop: 02/09/18 20:59 Last Admin: 12/18/17 21:17 Dose: 0.4 mg Zolpidem Tartrate (Ambien) 5 mg PO HS PRN PRN Reason: Insomnia Stop: 02/09/18 16:57 Last Admin: 12/18/17 23:28 Dose: 5 mg General: Alert, Other (Confused) HEENT: Atraumatic Neck: Supple Cardiovascular: Regular rate Abdomen: Bowel sounds, Soft Extremities: Other (No edema) Neurological: Other (Unstable gait) Skin: Other (warm and dry) Psych/Mental Status: Other (Confused, not oriented) Assessment/Plan - Problem List Patient Problems: All Active Problems AGITATION AND AGGRESSION (Acute) - Assessment Assessment: Current Active Problems Problem Status Onset AGITATION AND AGGRESSION Acute Patient is awake, alert, confused. DX: Incresed in agitation, HTN, Schizophrenia. - Plan Plan: Patient is follow by Psychiatry, Continue with SNF meds. Will continue to monitor. Nutritional Asmnt/Malnutr-PDOC - Dietary Evaluation Malnutrition Findings (Please click <Entered> for more info): Nutritional Asmnt/Malnutrition Start: 12/16/17 14: 18 Text: Status: Complete Freq: Document 12/16/17 14:18 MARY (Rec: 12/16/17 14:26 [email or web address]) Nutritional Asmnt/Malnutrition Patient General Information Nutritional Screening Moderate Risk Diagnosis psychosis Pertinent Medical Hx/Surgical Hx CAD, HTN, psychosis, schizophrenia, dyslipidemia Subjective Information Per EMR, PO intake 100% of meals. Current Diet Order/ Nutrition Support DARBY, double portion Pertinent Medications laisx, mag-oxide, glucophage, theragran Pertinent Labs 4/2 glucose 115, POC 107-115, A1c 6.0 Nutritional Hx/Data Height 1.7 m Height (Calculated Centimeters) 170.2 Current Weight (lbs) 90.718 kg Weight (Calculated Kilograms) 90.7 Weight (Calculated Grams) 76913.5 [place] Body Weight 148 Body Mass Index (BMI) 31.3 Weight Status Obese GI Symptoms GI Symptoms None Last BM 4/6 Difficult in: None Skin Integrity/Comment: bruises Current %PO Good (75-100%) Estimated Nutritional Goals BEE in Kcals: Adj wt of IBW Calories/Kcals/Kg 25-30 Kcals Calculated 9736-9757 Protein: Adj wt of IBW Protein g/k Protein Calculated 73 Fluid: ml 1825-2190ml (1ml/kcal) Intervention/Recommendation Comments 1. Continue with current diet as ordered. Continue monitor blood sugar. 2. Monitor PO intake, wt, labs and skin integrity 3. F/U as low risk in 7d ays, 12/23 Expected Outcomes/Goals Expected Outcomes/Goals 1. PO intake to meet at least 75% of nutritional needs. 2. Wt stability, skin to remain intact, labs to approach WNL.
[2017-12-19] MEDS: Multivitamin Tab PO SCH (09:56)
--- NOTE | 2017-12-19 21:11 | Progress Notes ---
DATE: 12/19/2017 SUBJECTIVE: Staff was spoken to. The patient is interviewed. Mood is noted to be less irritable. Affect is appropriate. Insight and judgment are noted to be improving. Impulse control seems to be fair. No side effects to the medications are noted. The patient has been stating that he was never trying to be sexually intimate with anyone except trying to be close to his girlfriend. The patient has been stating that he is not going to be creating problems. He would rather be discharged to [facility] for further followup. ASSESSMENT: The patient is currently able to tolerate the medications. No side effects to the medications are noted. The patient is going to be discharged for followup. [facility]# [id number]
--- NOTE | 2017-12-20 09:11 | General Progress Note ---
Subjective - Review of Systems Service Date: 12/20/17 Subjective: I am ok. Objective - Results Result Diagrams: 12/11/17 12:30 12/11/17 12:30 Recent Labs: Laboratory Last Values WBC 9.5 Th/cmm (4.8-10.8) 12/11/17 12:30 RBC 5.29 Mil/cmm (3.80-5.80) 12/11/17 12:30 Hgb 15.5 gm/dL (12-16) 12/11/17 12:30 Hct 46.7 % (41.0-60) 12/11/17 12:30 MCV 88.4 fl (80-99) 12/11/17 12:30 MCH 29.4 pg (27.0-31.0) 12/11/17 12:30 MCHC Differential 33.2 pg (28.0-36.0) 12/11/17 12:30 RDW 15.9 % (11.5-20.0) 12/11/17 12:30 Plt Count 243 Th/cmm (150-400) 12/11/17 12:30 MPV 7.6 fl 12/11/17 12:30 Neutrophils % 67.0 % (40.0-80.0) 12/11/17 12:30 Lymphocytes % 21.5 % (20.0-50.0) 12/11/17 12:30 Monocytes % 5.8 % (2.0-10.0) 12/11/17 12:30 Eosinophils % 3.9 % (0.0-5.0) 12/11/17 12:30 Basophils % 1.8 % (0.0-2.0) 12/11/17 12:30 Sodium 138 mEq/L (136-145) 12/11/17 12:30 Potassium 3.7 mEq/L (3.5-5.1) 12/11/17 12:30 Chloride 105 mEq/L (98-107) 12/11/17 12:30 Carbon Dioxide 22.7 mEq/L (21.0-31.0) 12/11/17 12:30 Anion Gap 14.0 (7.0-16.0) 12/11/17 12:30 BUN 14 mg/dL (7-25) 12/11/17 12:30 Creatinine 0.7 mg/dL (0.7-1.3) 12/11/17 12:30 Est GFR ( Amer) > 60.0 ml/min (>90) 12/11/17 12:30 Est GFR (Non-Af Amer) > 60.0 ml/min 12/11/17 12:30 BUN/Creatinine Ratio 20.0 12/11/17 12:30 Glucose 115 mg/dL (70-105) H 12/11/17 12:30 POC Glucose 115 MG/DL (70 - 105) H 12/15/17 20:11 Hemoglobin A1c % 6.0 % (4.0-6.0) 12/11/17 12:30 Calcium 9.3 mg/dL (8.6-10.3) 12/11/17 12:30 Total Bilirubin 0.6 mg/dL (0.3-1.0) 12/11/17 12:30 AST 16 U/L (13-39) 12/11/17 12:30 ALT 15 U/L (7-52) 12/11/17 12:30 Alkaline Phosphatase 86 U/L (34-104) 12/11/17 12:30 Total Protein 7.0 gm/dL (6.0-8.3) 12/11/17 12:30 Albumin 4.3 gm/dL (4.2-5.5) 12/11/17 12:30 Globulin 2.7 gm/dL 12/11/17 12:30 Albumin/Globulin Ratio 1.6 (1.0-1.8) 12/11/17 12:30 Triglycerides 106 mg/dL (<150) 12/11/17 12:30 Cholesterol 123 mg/dL (<200) 12/11/17 12:30 LDL Cholesterol Direct 96 mg/dL (75-193) 12/11/17 12:30 HDL Cholesterol 26 mg/dL (23-92) 12/11/17 12:30 TSH 1.06 uIU/ml (0.34-5.60) 12/11/17 12:30 Urine Source CLEAN C 12/11/17 12:15 Urine Color YELLOW 12/11/17 12:15 Urine Clarity CLEAR (CLEAR) 12/11/17 12:15 Urine pH 7.0 (4.6 - 8.0) 12/11/17 12:15 Ur Specific [place] 1.015 (1.005-1.030) 12/11/17 12:15 Urine Protein NEGATIVE mg/dL (NEGATIVE) 12/11/17 12:15 Urine Glucose (UA) NEGATIVE mg/dL (NEGATIVE) 12/11/17 12:15 Urine Ketones NEGATIVE mg/dL (NEGATIVE) 12/11/17 12:15 Urine Blood NEGATIVE (NEGATIVE) 12/11/17 12:15 Urine Nitrate NEGATIVE (NEGATIVE) 12/11/17 12:15 Urine Bilirubin NEGATIVE (NEGATIVE) 12/11/17 12:15 Urine Urobilinogen 1.0 E.U./dL (0.2 - 1.0) 12/11/17 12:15 Ur Leukocyte Esterase NEGATIVE (NEGATIVE) 12/11/17 12:15 Urine RBC 0-2 /hpf (0-5) H 12/11/17 12:15 Urine WBC 0-2 /hpf (0-5) 12/11/17 12:15 Ur Epithelial Cells FEW /lpf (FEW) 12/11/17 12:15 Urine Bacteria OCCASIONAL /hpf (NONE SEEN) 12/11/17 12:15 Salicylates < 25.0 mg/L (30.0-100.0) L 12/11/17 12:30 Acetaminophen < 10.0 ug/mL (10.0-30.0) L 12/11/17 12:30 Ethyl Alcohol < 10 mg/dL (0-10) 12/11/17 12:30 RPR NONREACTIVE (NONREACTIVE) 12/11/17 12:30 - Physical Exam Vitals and I&O: Vital Signs Temp 97.4 F 12/20/17 06:16 Pulse 75 12/20/17 06:16 Resp 20 12/20/17 06:16 BP 141/92 12/20/17 06:16 Pulse Ox 99 12/20/17 06:16 Intake & Output 12/19/17 12/20/17 12/20/17 18:59 06:59 18:59 Intake Total 1200 360 Balance 1200 360 Intake: Oral 1200 360 Other: # Voids 3 2 # Bowel Movements 1 0 Active Medications: Current Medications Acetaminophen (Tylenol) 650 mg PO Q4HR PRN PRN Reason: Mild Pain / Temp above 100 Stop: 02/09/18 16:57 Last Admin: 12/19/17 19:51 Dose: 650 mg Al Hydrox/Mg Hydrox/Simethicone (Maalox) 30 ml PO Q4HR PRN PRN Reason: GI DISTRESS Stop: 02/09/18 16:57 Albuterol/Ipratropium (Duoneb Neb) 3 ml HHN Q6HR PRN PRN Reason: WHEEZING/SOB Stop: 02/09/18 20:39 Amlodipine Besylate (Norvasc) 5 mg PO DAILY MOSHE Stop: 02/10/18 08:59 Last Admin: 12/19/17 09:49 Dose: 5 mg Aspirin (Aspirin) 325 mg PO DAILY MOSHE Stop: 02/10/18 08:59 Last Admin: 12/19/17 09:50 Dose: 325 mg Carvedilol (Coreg) 3.125 mg PO BID MOSHE Stop: 02/10/18 08:59 Last Admin: 12/19/17 17:07 Dose: 3.125 mg Citalopram Hydrobromide (Celexa) 10 mg PO DAILY MOSHE PRN Reason: Protocol Stop: 02/10/18 08:59 Last Admin: 12/19/17 09:50 Dose: 10 mg Furosemide (Lasix) 20 mg PO DAILY MOSHE Stop: 02/10/18 08:59 Last Admin: 12/19/17 09:55 Dose: 20 mg Gabapentin (Neurontin) 300 mg PO BID MOSHE Stop: 02/10/18 08:59 Last Admin: 12/19/17 17:07 Dose: 300 mg Lisinopril (Zestril) 20 mg PO DAILY MOSHE Stop: 02/10/18 08:59 Last Admin: 12/19/17 09:55 Dose: 20 mg Lorazepam (Ativan) 0.5 mg PO Q4HR PRN; Protocol PRN Reason: Agitation Stop: 02/17/18 17:12 Last Admin: 12/19/17 17:44 Dose: 0.5 mg Magnesium Hydroxide (Milk Of Magnesia) 30 ml PO HS PRN PRN Reason: Constipation Magnesium Oxide (Mag-Oxide) 400 mg PO DAILY MOSHE Stop: 02/10/18 08:59 Last Admin: 12/19/17 09:56 Dose: 400 mg Metformin HCl (Glucophage) 1,000 mg PO BIDWM MOSHE Stop: 02/10/18 07:59 Last Admin: 12/19/17 17:07 Dose: 1,000 mg Multivitamins/Vitamin C (Theragran) 1 tab PO DAILY MOSHE Stop: 02/10/18 08:59 Last Admin: 12/19/17 09:56 Dose: 1 tab Nitroglycerin (Nitrostat) 0.4 mg SL Q5MIN PRN PRN Reason: Chest Pain Stop: 02/09/18 20:39 Simvastatin (Zocor) 20 mg PO HS MOSHE PRN Reason: Protocol Stop: 02/09/18 20:59 Last Admin: 12/19/17 20:12 Dose: 20 mg Tamsulosin HCl (Flomax) 0.4 mg PO HS MOSHE Stop: 02/09/18 20:59 Last Admin: 12/19/17 20:12 Dose: 0.4 mg Zolpidem Tartrate (Ambien) 5 mg PO HS PRN PRN Reason: Insomnia Stop: 02/09/18 16:57 Last Admin: 12/19/17 19:52 Dose: 5 mg General: Alert, Other (Confused) HEENT: Atraumatic Neck: Supple Cardiovascular: Regular rate Abdomen: Bowel sounds, Soft Extremities: Other (No edema) Neurological: Other (Unstable gait) Skin: Other (warm and dry) Psych/Mental Status: Other (Confused, not oriented) Assessment/Plan - Problem List Patient Problems: All Active Problems AGITATION AND AGGRESSION (Acute) - Assessment Assessment: Current Active Problems Problem Status Onset AGITATION AND AGGRESSION Acute Patient is awake, alert, confused. DX: Incresed in agitation, HTN, Schizophrenia. - Plan Plan: Patient is follow by Psychiatry, Continue with SNF meds. Will continue to monitor. Nutritional Asmnt/Malnutr-PDOC - Dietary Evaluation Malnutrition Findings (Please click <Entered> for more info): Nutritional Asmnt/Malnutrition Start: 12/16/17 14: 18 Text: Status: Complete Freq: Document 12/16/17 14:18 MARY (Rec: 12/16/17 14:26 MARY [email or web address]) Nutritional Asmnt/Malnutrition Patient General Information Nutritional Screening Moderate Risk Diagnosis psychosis Pertinent Medical Hx/Surgical Hx CAD, HTN, psychosis, schizophrenia, dyslipidemia Subjective Information Per EMR, PO intake 100% of meals. Current Diet Order/ Nutrition Support DARBY, double portion Pertinent Medications laisx, mag-oxide, glucophage, theragran Pertinent Labs 4/2 glucose 115, POC 107-115, A1c 6.0 Nutritional Hx/Data Height 1.7 m Height (Calculated Centimeters) 170.2 Current Weight (lbs) 90.718 kg Weight (Calculated Kilograms) 90.7 Weight (Calculated Grams) 47970.5 [place] Body Weight 148 Body Mass Index (BMI) 31.3 Weight Status Obese GI Symptoms GI Symptoms None Last BM 4/6 Difficult in: None Skin Integrity/Comment: bruises Current %PO Good (75-100%) Estimated Nutritional Goals BEE in Kcals: Adj wt of IBW Calories/Kcals/Kg 25-30 Kcals Calculated 6258-9271 Protein: Adj wt of IBW Protein g/k Protein Calculated 73 Fluid: ml 1825-2190ml (1ml/kcal) Intervention/Recommendation Comments 1. Continue with current diet as ordered. Continue monitor blood sugar. 2. Monitor PO intake, wt, labs and skin integrity 3. F/U as low risk in 7d ays, 12/23 Expected Outcomes/Goals Expected Outcomes/Goals 1. PO intake to meet at least 75% of nutritional needs. 2. Wt stability, skin to remain intact, labs to approach WNL.
[2017-12-20] MEDS: Multivitamin Tab PO SCH (09:46)
--- NOTE | 2017-12-21 04:06 | Progress Notes ---
DATE: 12/20/2017 SUBJECTIVE: Staff was spoken to. The patient is interviewed. Mood is noted to be irritable. Affect is constricted. The patient is frustrated that he is not accepted back at [facility]. The patient is reported to having a major behavioral problem and they do not want to take a chance with the patient and they do not want to take him back. Coping skills at this time are noted to be poor. The patient is stating that he lost his girlfriend. PLAN: The patient is currently on citalopram 10 mg on a daily basis and it is going to be increased to 20 mg because of his depression and the patient is going to be closely monitored and followed up. JOB# [id number]
[2017-12-21] MEDS: Multivitamin Tab PO SCH (08:57)
--- NOTE | 2017-12-21 14:33 | General Progress Note ---
Subjective - Review of Systems Service Date: 12/21/17 Subjective: I am ok. Objective - Results Result Diagrams: 12/11/17 12:30 12/11/17 12:30 Recent Labs: Laboratory Last Values WBC 9.5 Th/cmm (4.8-10.8) 12/11/17 12:30 RBC 5.29 Mil/cmm (3.80-5.80) 12/11/17 12:30 Hgb 15.5 gm/dL (12-16) 12/11/17 12:30 Hct 46.7 % (41.0-60) 12/11/17 12:30 MCV 88.4 fl (80-99) 12/11/17 12:30 MCH 29.4 pg (27.0-31.0) 12/11/17 12:30 MCHC Differential 33.2 pg (28.0-36.0) 12/11/17 12:30 RDW 15.9 % (11.5-20.0) 12/11/17 12:30 Plt Count 243 Th/cmm (150-400) 12/11/17 12:30 MPV 7.6 fl 12/11/17 12:30 Neutrophils % 67.0 % (40.0-80.0) 12/11/17 12:30 Lymphocytes % 21.5 % (20.0-50.0) 12/11/17 12:30 Monocytes % 5.8 % (2.0-10.0) 12/11/17 12:30 Eosinophils % 3.9 % (0.0-5.0) 12/11/17 12:30 Basophils % 1.8 % (0.0-2.0) 12/11/17 12:30 Sodium 138 mEq/L (136-145) 12/11/17 12:30 Potassium 3.7 mEq/L (3.5-5.1) 12/11/17 12:30 Chloride 105 mEq/L (98-107) 12/11/17 12:30 Carbon Dioxide 22.7 mEq/L (21.0-31.0) 12/11/17 12:30 Anion Gap 14.0 (7.0-16.0) 12/11/17 12:30 BUN 14 mg/dL (7-25) 12/11/17 12:30 Creatinine 0.7 mg/dL (0.7-1.3) 12/11/17 12:30 Est GFR ( Amer) > 60.0 ml/min (>90) 12/11/17 12:30 Est GFR (Non-Af Amer) > 60.0 ml/min 12/11/17 12:30 BUN/Creatinine Ratio 20.0 12/11/17 12:30 Glucose 115 mg/dL (70-105) H 12/11/17 12:30 POC Glucose 115 MG/DL (70 - 105) H 12/15/17 20:11 Hemoglobin A1c % 6.0 % (4.0-6.0) 12/11/17 12:30 Calcium 9.3 mg/dL (8.6-10.3) 12/11/17 12:30 Total Bilirubin 0.6 mg/dL (0.3-1.0) 12/11/17 12:30 AST 16 U/L (13-39) 12/11/17 12:30 ALT 15 U/L (7-52) 12/11/17 12:30 Alkaline Phosphatase 86 U/L (34-104) 12/11/17 12:30 Total Protein 7.0 gm/dL (6.0-8.3) 12/11/17 12:30 Albumin 4.3 gm/dL (4.2-5.5) 12/11/17 12:30 Globulin 2.7 gm/dL 12/11/17 12:30 Albumin/Globulin Ratio 1.6 (1.0-1.8) 12/11/17 12:30 Triglycerides 106 mg/dL (<150) 12/11/17 12:30 Cholesterol 123 mg/dL (<200) 12/11/17 12:30 LDL Cholesterol Direct 96 mg/dL (75-193) 12/11/17 12:30 HDL Cholesterol 26 mg/dL (23-92) 12/11/17 12:30 TSH 1.06 uIU/ml (0.34-5.60) 12/11/17 12:30 Urine Source CLEAN C 12/11/17 12:15 Urine Color YELLOW 12/11/17 12:15 Urine Clarity CLEAR (CLEAR) 12/11/17 12:15 Urine pH 7.0 (4.6 - 8.0) 12/11/17 12:15 Ur Specific [place] 1.015 (1.005-1.030) 12/11/17 12:15 Urine Protein NEGATIVE mg/dL (NEGATIVE) 12/11/17 12:15 Urine Glucose (UA) NEGATIVE mg/dL (NEGATIVE) 12/11/17 12:15 Urine Ketones NEGATIVE mg/dL (NEGATIVE) 12/11/17 12:15 Urine Blood NEGATIVE (NEGATIVE) 12/11/17 12:15 Urine Nitrate NEGATIVE (NEGATIVE) 12/11/17 12:15 Urine Bilirubin NEGATIVE (NEGATIVE) 12/11/17 12:15 Urine Urobilinogen 1.0 E.U./dL (0.2 - 1.0) 12/11/17 12:15 Ur Leukocyte Esterase NEGATIVE (NEGATIVE) 12/11/17 12:15 Urine RBC 0-2 /hpf (0-5) H 12/11/17 12:15 Urine WBC 0-2 /hpf (0-5) 12/11/17 12:15 Ur Epithelial Cells FEW /lpf (FEW) 12/11/17 12:15 Urine Bacteria OCCASIONAL /hpf (NONE SEEN) 12/11/17 12:15 Salicylates < 25.0 mg/L (30.0-100.0) L 12/11/17 12:30 Acetaminophen < 10.0 ug/mL (10.0-30.0) L 12/11/17 12:30 Ethyl Alcohol < 10 mg/dL (0-10) 12/11/17 12:30 RPR NONREACTIVE (NONREACTIVE) 12/11/17 12:30 - Physical Exam Vitals and I&O: Vital Signs Temp 98.1 F 12/21/17 06:54 Pulse 71 12/21/17 09:00 Resp 20 12/21/17 06:54 BP 134/84 12/21/17 09:03 Pulse Ox 98 12/21/17 06:54 Intake & Output 12/20/17 12/21/17 12/21/17 18:59 06:59 18:59 Intake Total 1200 120 Balance 1200 120 Intake: Oral 1200 120 Other: # Voids 3 3 Active Medications: Current Medications Acetaminophen (Tylenol) 650 mg PO Q4HR PRN PRN Reason: Mild Pain / Temp above 100 Stop: 02/09/18 16:57 Last Admin: 12/19/17 19:51 Dose: 650 mg Al Hydrox/Mg Hydrox/Simethicone (Maalox) 30 ml PO Q4HR PRN PRN Reason: GI DISTRESS Stop: 02/09/18 16:57 Albuterol/Ipratropium (Duoneb Neb) 3 ml HHN Q6HR PRN PRN Reason: WHEEZING/SOB Stop: 02/09/18 20:39 Amlodipine Besylate (Norvasc) 5 mg PO DAILY MOSHE Stop: 02/10/18 08:59 Last Admin: 12/21/17 08:59 Dose: 5 mg Aspirin (Aspirin) 325 mg PO DAILY MOSHE Stop: 02/10/18 08:59 Last Admin: 12/21/17 08:57 Dose: 325 mg Carvedilol (Coreg) 3.125 mg PO BID MOSHE Stop: 02/10/18 08:59 Last Admin: 12/21/17 09:00 Dose: 3.125 mg Citalopram Hydrobromide (Celexa) 20 mg PO DAILY MOSHE PRN Reason: Protocol Stop: 02/18/18 19:12 Last Admin: 12/21/17 09:00 Dose: 20 mg Furosemide (Lasix) 20 mg PO DAILY MOSHE Stop: 02/10/18 08:59 Last Admin: 12/21/17 09:03 Dose: 20 mg Gabapentin (Neurontin) 300 mg PO BID MOSHE Stop: 02/10/18 08:59 Last Admin: 12/21/17 08:57 Dose: 300 mg Lisinopril (Zestril) 20 mg PO DAILY MOSHE Stop: 02/10/18 08:59 Last Admin: 12/21/17 08:57 Dose: 20 mg Lorazepam (Ativan) 0.5 mg PO Q4HR PRN; Protocol PRN Reason: Agitation Stop: 02/17/18 17:12 Last Admin: 12/20/17 15:26 Dose: 0.5 mg Magnesium Hydroxide (Milk Of Magnesia) 30 ml PO HS PRN PRN Reason: Constipation Magnesium Oxide (Mag-Oxide) 400 mg PO DAILY MOSHE Stop: 02/10/18 08:59 Last Admin: 12/21/17 08:57 Dose: 400 mg Metformin HCl (Glucophage) 1,000 mg PO BIDWM MOSHE Stop: 02/10/18 07:59 Last Admin: 12/21/17 08:57 Dose: 1,000 mg Multivitamins/Vitamin C (Theragran) 1 tab PO DAILY MOSHE Stop: 02/10/18 08:59 Last Admin: 12/21/17 08:57 Dose: 1 tab Nitroglycerin (Nitrostat) 0.4 mg SL Q5MIN PRN PRN Reason: Chest Pain Stop: 02/09/18 20:39 Simvastatin (Zocor) 20 mg PO HS MOSHE PRN Reason: Protocol Stop: 02/09/18 20:59 Last Admin: 12/20/17 20:31 Dose: 20 mg Tamsulosin HCl (Flomax) 0.4 mg PO HS MOSHE Stop: 02/09/18 20:59 Last Admin: 12/20/17 20:31 Dose: 0.4 mg Zolpidem Tartrate (Ambien) 5 mg PO HS PRN PRN Reason: Insomnia Stop: 02/09/18 16:57 Last Admin: 12/20/17 20:31 Dose: 5 mg General: Alert, Other (Confused) HEENT: Atraumatic Neck: Supple Cardiovascular: Regular rate Abdomen: Bowel sounds, Soft Extremities: Other (No edema) Neurological: Other (Unstable gait) Skin: Other (warm and dry) Psych/Mental Status: Other (Confused, not oriented) Assessment/Plan - Problem List Patient Problems: All Active Problems AGITATION AND AGGRESSION (Acute) - Assessment Assessment: Current Active Problems Problem Status Onset AGITATION AND AGGRESSION Acute Patient is awake, alert, confused. DX: Incresed in agitation, HTN, Schizophrenia. - Plan Plan: Patient is follow by Psychiatry, Continue with SNF meds. Will continue to monitor. Nutritional Asmnt/Malnutr-PDOC - Dietary Evaluation Malnutrition Findings (Please click <Entered> for more info): Nutritional Asmnt/Malnutrition Start: 12/16/17 14: 18 Text: Status: Complete Freq: Document 12/16/17 14:18 [email or web address] (Rec: 12/16/17 14:26 [email or web address]) Nutritional Asmnt/Malnutrition Patient General Information Nutritional Screening Moderate Risk Diagnosis psychosis Pertinent Medical Hx/Surgical Hx CAD, HTN, psychosis, schizophrenia, dyslipidemia Subjective Information Per EMR, PO intake 100% of meals. Current Diet Order/ Nutrition Support DARBY, double portion Pertinent Medications laisx, mag-oxide, glucophage, theragran Pertinent Labs 4/2 glucose 115, POC 107-115, A1c 6.0 Nutritional Hx/Data Height 1.7 m Height (Calculated Centimeters) 170.2 Current Weight (lbs) 90.718 kg Weight (Calculated Kilograms) 90.7 Weight (Calculated Grams) 49790.5 [place] Body Weight 148 Body Mass Index (BMI) 31.3 Weight Status Obese GI Symptoms GI Symptoms None Last BM 4/6 Difficult in: None Skin Integrity/Comment: bruises Current %PO Good (75-100%) Estimated Nutritional Goals BEE in Kcals: Adj wt of IBW Calories/Kcals/Kg 25-30 Kcals Calculated 9425-3815 Protein: Adj wt of IBW Protein g/k Protein Calculated 73 Fluid: ml 1825-2190ml (1ml/kcal) Intervention/Recommendation Comments 1. Continue with current diet as ordered. Continue monitor blood sugar. 2. Monitor PO intake, wt, labs and skin integrity 3. F/U as low risk in 7d ays, 12/23 Expected Outcomes/Goals Expected Outcomes/Goals 1. PO intake to meet at least 75% of nutritional needs. 2. Wt stability, skin to remain intact, labs to approach WNL.
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
[2017-12-22] MEDS: Multivitamin Tab PO SCH (08:17)
--- NOTE | 2017-12-22 08:56 | General Progress Note ---
Subjective - Review of Systems Service Date: 12/22/17 Subjective: I am ok. Objective - Results Result Diagrams: 12/11/17 12:30 12/11/17 12:30 Recent Labs: Laboratory Last Values WBC 9.5 Th/cmm (4.8-10.8) 12/11/17 12:30 RBC 5.29 Mil/cmm (3.80-5.80) 12/11/17 12:30 Hgb 15.5 gm/dL (12-16) 12/11/17 12:30 Hct 46.7 % (41.0-60) 12/11/17 12:30 MCV 88.4 fl (80-99) 12/11/17 12:30 MCH 29.4 pg (27.0-31.0) 12/11/17 12:30 MCHC Differential 33.2 pg (28.0-36.0) 12/11/17 12:30 RDW 15.9 % (11.5-20.0) 12/11/17 12:30 Plt Count 243 Th/cmm (150-400) 12/11/17 12:30 MPV 7.6 fl 12/11/17 12:30 Neutrophils % 67.0 % (40.0-80.0) 12/11/17 12:30 Lymphocytes % 21.5 % (20.0-50.0) 12/11/17 12:30 Monocytes % 5.8 % (2.0-10.0) 12/11/17 12:30 Eosinophils % 3.9 % (0.0-5.0) 12/11/17 12:30 Basophils % 1.8 % (0.0-2.0) 12/11/17 12:30 Sodium 138 mEq/L (136-145) 12/11/17 12:30 Potassium 3.7 mEq/L (3.5-5.1) 12/11/17 12:30 Chloride 105 mEq/L (98-107) 12/11/17 12:30 Carbon Dioxide 22.7 mEq/L (21.0-31.0) 12/11/17 12:30 Anion Gap 14.0 (7.0-16.0) 12/11/17 12:30 BUN 14 mg/dL (7-25) 12/11/17 12:30 Creatinine 0.7 mg/dL (0.7-1.3) 12/11/17 12:30 Est GFR ( Amer) > 60.0 ml/min (>90) 12/11/17 12:30 Est GFR (Non-Af Amer) > 60.0 ml/min 12/11/17 12:30 BUN/Creatinine Ratio 20.0 12/11/17 12:30 Glucose 115 mg/dL (70-105) H 12/11/17 12:30 POC Glucose 115 MG/DL (70 - 105) H 12/15/17 20:11 Hemoglobin A1c % 6.0 % (4.0-6.0) 12/11/17 12:30 Calcium 9.3 mg/dL (8.6-10.3) 12/11/17 12:30 Total Bilirubin 0.6 mg/dL (0.3-1.0) 12/11/17 12:30 AST 16 U/L (13-39) 12/11/17 12:30 ALT 15 U/L (7-52) 12/11/17 12:30 Alkaline Phosphatase 86 U/L (34-104) 12/11/17 12:30 Total Protein 7.0 gm/dL (6.0-8.3) 12/11/17 12:30 Albumin 4.3 gm/dL (4.2-5.5) 12/11/17 12:30 Globulin 2.7 gm/dL 12/11/17 12:30 Albumin/Globulin Ratio 1.6 (1.0-1.8) 12/11/17 12:30 Triglycerides 106 mg/dL (<150) 12/11/17 12:30 Cholesterol 123 mg/dL (<200) 12/11/17 12:30 LDL Cholesterol Direct 96 mg/dL (75-193) 12/11/17 12:30 HDL Cholesterol 26 mg/dL (23-92) 12/11/17 12:30 TSH 1.06 uIU/ml (0.34-5.60) 12/11/17 12:30 Urine Source CLEAN C 12/11/17 12:15 Urine Color YELLOW 12/11/17 12:15 Urine Clarity CLEAR (CLEAR) 12/11/17 12:15 Urine pH 7.0 (4.6 - 8.0) 12/11/17 12:15 Ur Specific [place] 1.015 (1.005-1.030) 12/11/17 12:15 Urine Protein NEGATIVE mg/dL (NEGATIVE) 12/11/17 12:15 Urine Glucose (UA) NEGATIVE mg/dL (NEGATIVE) 12/11/17 12:15 Urine Ketones NEGATIVE mg/dL (NEGATIVE) 12/11/17 12:15 Urine Blood NEGATIVE (NEGATIVE) 12/11/17 12:15 Urine Nitrate NEGATIVE (NEGATIVE) 12/11/17 12:15 Urine Bilirubin NEGATIVE (NEGATIVE) 12/11/17 12:15 Urine Urobilinogen 1.0 E.U./dL (0.2 - 1.0) 12/11/17 12:15 Ur Leukocyte Esterase NEGATIVE (NEGATIVE) 12/11/17 12:15 Urine RBC 0-2 /hpf (0-5) H 12/11/17 12:15 Urine WBC 0-2 /hpf (0-5) 12/11/17 12:15 Ur Epithelial Cells FEW /lpf (FEW) 12/11/17 12:15 Urine Bacteria OCCASIONAL /hpf (NONE SEEN) 12/11/17 12:15 Salicylates < 25.0 mg/L (30.0-100.0) L 12/11/17 12:30 Acetaminophen < 10.0 ug/mL (10.0-30.0) L 12/11/17 12:30 Ethyl Alcohol < 10 mg/dL (0-10) 12/11/17 12:30 RPR NONREACTIVE (NONREACTIVE) 12/11/17 12:30 - Physical Exam Vitals and I&O: Vital Signs Temp 98.0 F 12/22/17 07:23 Pulse 81 12/22/17 08:20 Resp 19 12/22/17 07:23 BP 108/71 12/22/17 08:20 Pulse Ox 97 12/22/17 07:23 Intake & Output 12/21/17 12/22/17 12/22/17 18:59 06:59 18:59 Intake Total 2400 240 Balance 2400 240 Intake: Oral 2400 240 Other: # Voids 4 4 # Bowel Movements 1 0 Active Medications: Current Medications Acetaminophen (Tylenol) 650 mg PO Q4HR PRN PRN Reason: Mild Pain / Temp above 100 Stop: 02/09/18 16:57 Last Admin: 12/19/17 19:51 Dose: 650 mg Al Hydrox/Mg Hydrox/Simethicone (Maalox) 30 ml PO Q4HR PRN PRN Reason: GI DISTRESS Stop: 02/09/18 16:57 Albuterol/Ipratropium (Duoneb Neb) 3 ml HHN Q6HR PRN PRN Reason: WHEEZING/SOB Stop: 02/09/18 20:39 Amlodipine Besylate (Norvasc) 5 mg PO DAILY MOSHE Stop: 02/10/18 08:59 Last Admin: 12/22/17 08:19 Dose: Not Given Aspirin (Aspirin) 325 mg PO DAILY MOSHE Stop: 02/10/18 08:59 Last Admin: 12/22/17 08:16 Dose: 325 mg Carvedilol (Coreg) 3.125 mg PO BID MOSHE Stop: 02/10/18 08:59 Last Admin: 12/22/17 08:18 Dose: 3.125 mg Citalopram Hydrobromide (Celexa) 20 mg PO DAILY MOSHE PRN Reason: Protocol Stop: 02/18/18 19:12 Last Admin: 12/22/17 08:17 Dose: 20 mg Furosemide (Lasix) 20 mg PO DAILY MOSHE Stop: 02/10/18 08:59 Last Admin: 12/22/17 08:18 Dose: 20 mg Gabapentin (Neurontin) 300 mg PO BID MOSHE Stop: 02/10/18 08:59 Last Admin: 12/22/17 08:17 Dose: 300 mg Lisinopril (Zestril) 20 mg PO DAILY MOSHE Stop: 02/10/18 08:59 Last Admin: 12/22/17 08:20 Dose: Not Given Lorazepam (Ativan) 0.5 mg PO Q4HR PRN; Protocol PRN Reason: Agitation Stop: 02/17/18 17:12 Last Admin: 12/21/17 16:29 Dose: 0.5 mg Magnesium Hydroxide (Milk Of Magnesia) 30 ml PO HS PRN PRN Reason: Constipation Magnesium Oxide (Mag-Oxide) 400 mg PO DAILY MOSHE Stop: 02/10/18 08:59 Last Admin: 12/22/17 08:18 Dose: 400 mg Metformin HCl (Glucophage) 1,000 mg PO BIDWM MOSHE Stop: 02/10/18 07:59 Last Admin: 12/22/17 08:20 Dose: 1,000 mg Multivitamins/Vitamin C (Theragran) 1 tab PO DAILY MOSHE Stop: 02/10/18 08:59 Last Admin: 12/22/17 08:17 Dose: 1 tab Nitroglycerin (Nitrostat) 0.4 mg SL Q5MIN PRN PRN Reason: Chest Pain Stop: 02/09/18 20:39 Simvastatin (Zocor) 20 mg PO HS MOSHE PRN Reason: Protocol Stop: 02/09/18 20:59 Last Admin: 12/21/17 21:32 Dose: 20 mg Tamsulosin HCl (Flomax) 0.4 mg PO HS MOSHE Stop: 02/09/18 20:59 Last Admin: 12/21/17 21:33 Dose: 0.4 mg Zolpidem Tartrate (Ambien) 5 mg PO HS PRN PRN Reason: Insomnia Stop: 02/09/18 16:57 Last Admin: 12/21/17 21:35 Dose: 5 mg General: Alert, Other (Confused) HEENT: Atraumatic Neck: Supple Cardiovascular: Regular rate Abdomen: Bowel sounds, Soft Extremities: Other (No edema) Neurological: Other (Unstable gait) Skin: Other (warm and dry) Psych/Mental Status: Other (Confused, not oriented) Assessment/Plan - Problem List Patient Problems: All Active Problems AGITATION AND AGGRESSION (Acute) - Assessment Assessment: Current Active Problems Problem Status Onset AGITATION AND AGGRESSION Acute Patient is awake, alert, confused. DX: Incresed in agitation, HTN, Schizophrenia. - Plan Plan: Patient is follow by Psychiatry, Continue with SNF meds. Will continue to monitor. Nutritional Asmnt/Malnutr-PDOC - Dietary Evaluation Malnutrition Findings (Please click <Entered> for more info): Nutritional Asmnt/Malnutrition Start: 12/16/17 14: 18 Text: Status: Complete Freq: Document 12/16/17 14:18 MARY (Rec: 12/16/17 14:26 [email or web address]) Nutritional Asmnt/Malnutrition Patient General Information Nutritional Screening Moderate Risk Diagnosis psychosis Pertinent Medical Hx/Surgical Hx CAD, HTN, psychosis, schizophrenia, dyslipidemia Subjective Information Per EMR, PO intake 100% of meals. Current Diet Order/ Nutrition Support DARBY, double portion Pertinent Medications laisx, mag-oxide, glucophage, theragran Pertinent Labs 4/2 glucose 115, POC 107-115, A1c 6.0 Nutritional Hx/Data Height 1.7 m Height (Calculated Centimeters) 170.2 Current Weight (lbs) 90.718 kg Weight (Calculated Kilograms) 90.7 Weight (Calculated Grams) 00743.5 [place] Body Weight 148 Body Mass Index (BMI) 31.3 Weight Status Obese GI Symptoms GI Symptoms None Last BM 4/6 Difficult in: None Skin Integrity/Comment: bruises Current %PO Good (75-100%) Estimated Nutritional Goals BEE in Kcals: Adj wt of IBW Calories/Kcals/Kg 25-30 Kcals Calculated 2884-1441 Protein: Adj wt of IBW Protein g/k Protein Calculated 73 Fluid: ml 1825-2190ml (1ml/kcal) Intervention/Recommendation Comments 1. Continue with current diet as ordered. Continue monitor blood sugar. 2. Monitor PO intake, wt, labs and skin integrity 3. F/U as low risk in 7d ays, 12/23 Expected Outcomes/Goals Expected Outcomes/Goals 1. PO intake to meet at least 75% of nutritional needs. 2. Wt stability, skin to remain intact, labs to approach WNL.
--- NOTE | 2017-12-22 19:08 | Progress Notes ---
DATE: 12/22/2017 SUBJECTIVE: Staff are spoken to. The patient is interviewed. Mood is noted to be irritable. Affect is constricted. Insight and judgment at this time are noted to be still impaired. Impulse control is noted to be limited. Coping skills are noted to be limited. The patient has been having difficult time to cope with the stress. The patient is reporting that he lost his . He lost his girlfriend and he is feeling very, very upset about it. No side effects to the medications are noted. ASSESSMENT: The patient is depressed. PLAN: To continue the patient with the supportive therapy, encouraged the patient to verbalize the concerns and work with the casework supervisor in finding a place. [facility]# [id number]
[2017-12-23] MEDS: Multivitamin Tab PO SCH (08:26)
--- NOTE | 2017-12-23 10:25 | General Progress Note ---
Subjective - Review of Systems Service Date: 12/23/17 Subjective: I am ok. Objective - Results Result Diagrams: 12/11/17 12:30 12/11/17 12:30 Recent Labs: Laboratory Last Values WBC 9.5 Th/cmm (4.8-10.8) 12/11/17 12:30 RBC 5.29 Mil/cmm (3.80-5.80) 12/11/17 12:30 Hgb 15.5 gm/dL (12-16) 12/11/17 12:30 Hct 46.7 % (41.0-60) 12/11/17 12:30 MCV 88.4 fl (80-99) 12/11/17 12:30 MCH 29.4 pg (27.0-31.0) 12/11/17 12:30 MCHC Differential 33.2 pg (28.0-36.0) 12/11/17 12:30 RDW 15.9 % (11.5-20.0) 12/11/17 12:30 Plt Count 243 Th/cmm (150-400) 12/11/17 12:30 MPV 7.6 fl 12/11/17 12:30 Neutrophils % 67.0 % (40.0-80.0) 12/11/17 12:30 Lymphocytes % 21.5 % (20.0-50.0) 12/11/17 12:30 Monocytes % 5.8 % (2.0-10.0) 12/11/17 12:30 Eosinophils % 3.9 % (0.0-5.0) 12/11/17 12:30 Basophils % 1.8 % (0.0-2.0) 12/11/17 12:30 Sodium 138 mEq/L (136-145) 12/11/17 12:30 Potassium 3.7 mEq/L (3.5-5.1) 12/11/17 12:30 Chloride 105 mEq/L (98-107) 12/11/17 12:30 Carbon Dioxide 22.7 mEq/L (21.0-31.0) 12/11/17 12:30 Anion Gap 14.0 (7.0-16.0) 12/11/17 12:30 BUN 14 mg/dL (7-25) 12/11/17 12:30 Creatinine 0.7 mg/dL (0.7-1.3) 12/11/17 12:30 Est GFR ( Amer) > 60.0 ml/min (>90) 12/11/17 12:30 Est GFR (Non-Af Amer) > 60.0 ml/min 12/11/17 12:30 BUN/Creatinine Ratio 20.0 12/11/17 12:30 Glucose 115 mg/dL (70-105) H 12/11/17 12:30 POC Glucose 115 MG/DL (70 - 105) H 12/15/17 20:11 Hemoglobin A1c % 6.0 % (4.0-6.0) 12/11/17 12:30 Calcium 9.3 mg/dL (8.6-10.3) 12/11/17 12:30 Total Bilirubin 0.6 mg/dL (0.3-1.0) 12/11/17 12:30 AST 16 U/L (13-39) 12/11/17 12:30 ALT 15 U/L (7-52) 12/11/17 12:30 Alkaline Phosphatase 86 U/L (34-104) 12/11/17 12:30 Total Protein 7.0 gm/dL (6.0-8.3) 12/11/17 12:30 Albumin 4.3 gm/dL (4.2-5.5) 12/11/17 12:30 Globulin 2.7 gm/dL 12/11/17 12:30 Albumin/Globulin Ratio 1.6 (1.0-1.8) 12/11/17 12:30 Triglycerides 106 mg/dL (<150) 12/11/17 12:30 Cholesterol 123 mg/dL (<200) 12/11/17 12:30 LDL Cholesterol Direct 96 mg/dL (75-193) 12/11/17 12:30 HDL Cholesterol 26 mg/dL (23-92) 12/11/17 12:30 TSH 1.06 uIU/ml (0.34-5.60) 12/11/17 12:30 Urine Source CLEAN C 12/11/17 12:15 Urine Color YELLOW 12/11/17 12:15 Urine Clarity CLEAR (CLEAR) 12/11/17 12:15 Urine pH 7.0 (4.6 - 8.0) 12/11/17 12:15 Ur Specific [place] 1.015 (1.005-1.030) 12/11/17 12:15 Urine Protein NEGATIVE mg/dL (NEGATIVE) 12/11/17 12:15 Urine Glucose (UA) NEGATIVE mg/dL (NEGATIVE) 12/11/17 12:15 Urine Ketones NEGATIVE mg/dL (NEGATIVE) 12/11/17 12:15 Urine Blood NEGATIVE (NEGATIVE) 12/11/17 12:15 Urine Nitrate NEGATIVE (NEGATIVE) 12/11/17 12:15 Urine Bilirubin NEGATIVE (NEGATIVE) 12/11/17 12:15 Urine Urobilinogen 1.0 E.U./dL (0.2 - 1.0) 12/11/17 12:15 Ur Leukocyte Esterase NEGATIVE (NEGATIVE) 12/11/17 12:15 Urine RBC 0-2 /hpf (0-5) H 12/11/17 12:15 Urine WBC 0-2 /hpf (0-5) 12/11/17 12:15 Ur Epithelial Cells FEW /lpf (FEW) 12/11/17 12:15 Urine Bacteria OCCASIONAL /hpf (NONE SEEN) 12/11/17 12:15 Salicylates < 25.0 mg/L (30.0-100.0) L 12/11/17 12:30 Acetaminophen < 10.0 ug/mL (10.0-30.0) L 12/11/17 12:30 Ethyl Alcohol < 10 mg/dL (0-10) 12/11/17 12:30 RPR NONREACTIVE (NONREACTIVE) 12/11/17 12:30 - Physical Exam Vitals and I&O: Vital Signs Temp 97.2 F 12/23/17 06:32 Pulse 59 12/23/17 08:28 Resp 18 12/23/17 06:32 BP 138/73 12/23/17 08:28 Pulse Ox 94 12/23/17 06:32 Intake & Output 12/22/17 12/23/17 12/23/17 18:59 06:59 18:59 Intake Total 1100 240 Balance 1100 240 Intake: Oral 1100 240 Other: # Voids 3 1 # Bowel Movements 1 Stool Characteristics Soft Formed Active Medications: Current Medications Acetaminophen (Tylenol) 650 mg PO Q4HR PRN PRN Reason: Mild Pain / Temp above 100 Stop: 02/09/18 16:57 Last Admin: 12/19/17 19:51 Dose: 650 mg Al Hydrox/Mg Hydrox/Simethicone (Maalox) 30 ml PO Q4HR PRN PRN Reason: GI DISTRESS Stop: 02/09/18 16:57 Albuterol/Ipratropium (Duoneb Neb) 3 ml HHN Q6HR PRN PRN Reason: WHEEZING/SOB Stop: 02/09/18 20:39 Amlodipine Besylate (Norvasc) 5 mg PO DAILY MOSHE Stop: 02/10/18 08:59 Last Admin: 12/23/17 08:27 Dose: 5 mg Aspirin (Aspirin) 325 mg PO DAILY MOSHE Stop: 02/10/18 08:59 Last Admin: 12/23/17 08:26 Dose: 325 mg Carvedilol (Coreg) 3.125 mg PO BID MOSHE Stop: 02/10/18 08:59 Last Admin: 12/23/17 08:27 Dose: 3.125 mg Citalopram Hydrobromide (Celexa) 20 mg PO DAILY MOSHE PRN Reason: Protocol Stop: 02/18/18 19:12 Last Admin: 12/23/17 08:26 Dose: 20 mg Furosemide (Lasix) 20 mg PO DAILY MOSHE Stop: 02/10/18 08:59 Last Admin: 12/23/17 08:28 Dose: 20 mg Gabapentin (Neurontin) 300 mg PO BID MOSHE Stop: 02/10/18 08:59 Last Admin: 12/23/17 08:27 Dose: 300 mg Lisinopril (Zestril) 20 mg PO DAILY MOSHE Stop: 02/10/18 08:59 Last Admin: 12/23/17 08:28 Dose: Not Given Lorazepam (Ativan) 0.5 mg PO Q4HR PRN; Protocol PRN Reason: Agitation Stop: 02/17/18 17:12 Last Admin: 12/21/17 16:29 Dose: 0.5 mg Magnesium Oxide (Mag-Oxide) 400 mg PO DAILY MOSHE Stop: 02/10/18 08:59 Last Admin: 12/23/17 08:26 Dose: 400 mg Metformin HCl (Glucophage) 1,000 mg PO BIDWM MOSHE Stop: 02/10/18 07:59 Last Admin: 12/23/17 08:26 Dose: 1,000 mg Multivitamins/Vitamin C (Theragran) 1 tab PO DAILY MOSHE Stop: 02/10/18 08:59 Last Admin: 12/23/17 08:26 Dose: 1 tab Nitroglycerin (Nitrostat) 0.4 mg SL Q5MIN PRN PRN Reason: Chest Pain Stop: 02/09/18 20:39 Simvastatin (Zocor) 20 mg PO HS MOSHE PRN Reason: Protocol Stop: 02/09/18 20:59 Last Admin: 12/22/17 20:40 Dose: 20 mg Tamsulosin HCl (Flomax) 0.4 mg PO HS MOSHE Stop: 02/09/18 20:59 Last Admin: 12/22/17 20:40 Dose: 0.4 mg Zolpidem Tartrate (Ambien) 5 mg PO HS PRN PRN Reason: Insomnia Stop: 02/09/18 16:57 Last Admin: 12/22/17 20:41 Dose: 5 mg General: Alert, Other (Confused) HEENT: Atraumatic Neck: Supple Cardiovascular: Regular rate Abdomen: Bowel sounds, Soft Extremities: Other (No edema) Neurological: Other (Unstable gait) Skin: Other (warm and dry) Psych/Mental Status: Other (Confused, not oriented) Assessment/Plan - Problem List Patient Problems: All Active Problems AGITATION AND AGGRESSION (Acute) - Assessment Assessment: Current Active Problems Problem Status Onset AGITATION AND AGGRESSION Acute Patient is awake, alert, confused. DX: Incresed in agitation, HTN, Schizophrenia. - Plan Plan: Patient is follow by Psychiatry, Continue with SNF meds. Will continue to monitor. Nutritional Asmnt/Malnutr-PDOC - Dietary Evaluation Malnutrition Findings (Please click <Entered> for more info): Nutritional Asmnt/Malnutrition Start: 12/16/17 14: 18 Text: Status: Complete Freq: Document 12/16/17 14:18 HEN (Rec: 12/16/17 14:26 [email or web address]) Nutritional Asmnt/Malnutrition Patient General Information Nutritional Screening Moderate Risk Diagnosis psychosis Pertinent Medical Hx/Surgical Hx CAD, HTN, psychosis, schizophrenia, dyslipidemia Subjective Information Per EMR, PO intake 100% of meals. Current Diet Order/ Nutrition Support DARBY, double portion Pertinent Medications laisx, mag-oxide, glucophage, theragran Pertinent Labs 4/2 glucose 115, POC 107-115, A1c 6.0 Nutritional Hx/Data Height 1.7 m Height (Calculated Centimeters) 170.2 Current Weight (lbs) 90.718 kg Weight (Calculated Kilograms) 90.7 Weight (Calculated Grams) 09616.5 [place] Body Weight 148 Body Mass Index (BMI) 31.3 Weight Status Obese GI Symptoms GI Symptoms None Last BM 4/6 Difficult in: None Skin Integrity/Comment: bruises Current %PO Good (75-100%) Estimated Nutritional Goals BEE in Kcals: Adj wt of IBW Calories/Kcals/Kg 25-30 Kcals Calculated 4351-4763 Protein: Adj wt of IBW Protein g/k Protein Calculated 73 Fluid: ml 1825-2190ml (1ml/kcal) Intervention/Recommendation Comments 1. Continue with current diet as ordered. Continue monitor blood sugar. 2. Monitor PO intake, wt, labs and skin integrity 3. F/U as low risk in 7d ays, 12/23 Expected Outcomes/Goals Expected Outcomes/Goals 1. PO intake to meet at least 75% of nutritional needs. 2. Wt stability, skin to remain intact, labs to approach WNL.
--- NOTE | 2017-12-23 18:22 | Progress Notes ---
DATE: 12/23/2017 SUBJECTIVE: Staff was spoken to. The patient is interviewed. Mood is very angry and upset. Coping skills are noted to be very poor. The patient is stating that he has lost his girlfriend and very much upset about it and has been blaming the hospital. The patient is reported to have been having difficult time to keep to himself and has to be closely monitored and the facility. He is mentioning that he is not welcome to take her over there and the patient is being looked into for a different facility at this time, no placement is available. PLAN: To continue the patient with the supportive therapy and await for placement. JOB# [id number]
[2017-12-24] MEDS: Multivitamin Tab PO SCH (08:31)
--- NOTE | 2017-12-24 11:43 | General Progress Note ---
Subjective - Review of Systems Service Date: 12/24/17 Subjective: I am ok. Objective - Results Result Diagrams: 12/11/17 12:30 12/11/17 12:30 Recent Labs: Laboratory Last Values WBC 9.5 Th/cmm (4.8-10.8) 12/11/17 12:30 RBC 5.29 Mil/cmm (3.80-5.80) 12/11/17 12:30 Hgb 15.5 gm/dL (12-16) 12/11/17 12:30 Hct 46.7 % (41.0-60) 12/11/17 12:30 MCV 88.4 fl (80-99) 12/11/17 12:30 MCH 29.4 pg (27.0-31.0) 12/11/17 12:30 MCHC Differential 33.2 pg (28.0-36.0) 12/11/17 12:30 RDW 15.9 % (11.5-20.0) 12/11/17 12:30 Plt Count 243 Th/cmm (150-400) 12/11/17 12:30 MPV 7.6 fl 12/11/17 12:30 Neutrophils % 67.0 % (40.0-80.0) 12/11/17 12:30 Lymphocytes % 21.5 % (20.0-50.0) 12/11/17 12:30 Monocytes % 5.8 % (2.0-10.0) 12/11/17 12:30 Eosinophils % 3.9 % (0.0-5.0) 12/11/17 12:30 Basophils % 1.8 % (0.0-2.0) 12/11/17 12:30 Sodium 138 mEq/L (136-145) 12/11/17 12:30 Potassium 3.7 mEq/L (3.5-5.1) 12/11/17 12:30 Chloride 105 mEq/L (98-107) 12/11/17 12:30 Carbon Dioxide 22.7 mEq/L (21.0-31.0) 12/11/17 12:30 Anion Gap 14.0 (7.0-16.0) 12/11/17 12:30 BUN 14 mg/dL (7-25) 12/11/17 12:30 Creatinine 0.7 mg/dL (0.7-1.3) 12/11/17 12:30 Est GFR ( Amer) > 60.0 ml/min (>90) 12/11/17 12:30 Est GFR (Non-Af Amer) > 60.0 ml/min 12/11/17 12:30 BUN/Creatinine Ratio 20.0 12/11/17 12:30 Glucose 115 mg/dL (70-105) H 12/11/17 12:30 POC Glucose 115 MG/DL (70 - 105) H 12/15/17 20:11 Hemoglobin A1c % 6.0 % (4.0-6.0) 12/11/17 12:30 Calcium 9.3 mg/dL (8.6-10.3) 12/11/17 12:30 Total Bilirubin 0.6 mg/dL (0.3-1.0) 12/11/17 12:30 AST 16 U/L (13-39) 12/11/17 12:30 ALT 15 U/L (7-52) 12/11/17 12:30 Alkaline Phosphatase 86 U/L (34-104) 12/11/17 12:30 Total Protein 7.0 gm/dL (6.0-8.3) 12/11/17 12:30 Albumin 4.3 gm/dL (4.2-5.5) 12/11/17 12:30 Globulin 2.7 gm/dL 12/11/17 12:30 Albumin/Globulin Ratio 1.6 (1.0-1.8) 12/11/17 12:30 Triglycerides 106 mg/dL (<150) 12/11/17 12:30 Cholesterol 123 mg/dL (<200) 12/11/17 12:30 LDL Cholesterol Direct 96 mg/dL (75-193) 12/11/17 12:30 HDL Cholesterol 26 mg/dL (23-92) 12/11/17 12:30 TSH 1.06 uIU/ml (0.34-5.60) 12/11/17 12:30 Urine Source CLEAN C 12/11/17 12:15 Urine Color YELLOW 12/11/17 12:15 Urine Clarity CLEAR (CLEAR) 12/11/17 12:15 Urine pH 7.0 (4.6 - 8.0) 12/11/17 12:15 Ur Specific [place] 1.015 (1.005-1.030) 12/11/17 12:15 Urine Protein NEGATIVE mg/dL (NEGATIVE) 12/11/17 12:15 Urine Glucose (UA) NEGATIVE mg/dL (NEGATIVE) 12/11/17 12:15 Urine Ketones NEGATIVE mg/dL (NEGATIVE) 12/11/17 12:15 Urine Blood NEGATIVE (NEGATIVE) 12/11/17 12:15 Urine Nitrate NEGATIVE (NEGATIVE) 12/11/17 12:15 Urine Bilirubin NEGATIVE (NEGATIVE) 12/11/17 12:15 Urine Urobilinogen 1.0 E.U./dL (0.2 - 1.0) 12/11/17 12:15 Ur Leukocyte Esterase NEGATIVE (NEGATIVE) 12/11/17 12:15 Urine RBC 0-2 /hpf (0-5) H 12/11/17 12:15 Urine WBC 0-2 /hpf (0-5) 12/11/17 12:15 Ur Epithelial Cells FEW /lpf (FEW) 12/11/17 12:15 Urine Bacteria OCCASIONAL /hpf (NONE SEEN) 12/11/17 12:15 Salicylates < 25.0 mg/L (30.0-100.0) L 12/11/17 12:30 Acetaminophen < 10.0 ug/mL (10.0-30.0) L 12/11/17 12:30 Ethyl Alcohol < 10 mg/dL (0-10) 12/11/17 12:30 RPR NONREACTIVE (NONREACTIVE) 12/11/17 12:30 - Physical Exam Vitals and I&O: Vital Signs Temp 97.9 F 12/24/17 06:42 Pulse 65 12/24/17 08:33 Resp 20 12/24/17 06:42 BP 157/85 12/24/17 08:33 Pulse Ox 96 12/24/17 06:42 Intake & Output 12/23/17 12/24/17 12/24/17 18:59 06:59 18:59 Intake Total 1200 480 Balance 1200 480 Intake: Oral 1200 480 Other: # Voids 1 # Bowel Movements 1 Stool Characteristics Soft Formed Active Medications: Current Medications Acetaminophen (Tylenol) 650 mg PO Q4HR PRN PRN Reason: Mild Pain / Temp above 100 Stop: 02/09/18 16:57 Last Admin: 12/23/17 20:30 Dose: 650 mg Al Hydrox/Mg Hydrox/Simethicone (Maalox) 30 ml PO Q4HR PRN PRN Reason: GI DISTRESS Stop: 02/09/18 16:57 Albuterol/Ipratropium (Duoneb Neb) 3 ml HHN Q6HR PRN PRN Reason: WHEEZING/SOB Stop: 02/09/18 20:39 Amlodipine Besylate (Norvasc) 5 mg PO DAILY MOSHE Stop: 02/10/18 08:59 Last Admin: 12/24/17 08:31 Dose: 5 mg Aspirin (Aspirin) 325 mg PO DAILY MOSHE Stop: 02/10/18 08:59 Last Admin: 12/24/17 08:31 Dose: 325 mg Carvedilol (Coreg) 3.125 mg PO BID MOSHE Stop: 02/10/18 08:59 Last Admin: 12/24/17 08:33 Dose: 3.125 mg Citalopram Hydrobromide (Celexa) 20 mg PO DAILY MOSHE PRN Reason: Protocol Stop: 02/18/18 19:12 Last Admin: 12/24/17 08:32 Dose: 20 mg Furosemide (Lasix) 20 mg PO DAILY MOSHE Stop: 02/10/18 08:59 Last Admin: 12/24/17 08:31 Dose: 20 mg Gabapentin (Neurontin) 300 mg PO BID MOSHE Stop: 02/10/18 08:59 Last Admin: 12/24/17 08:31 Dose: 300 mg Lisinopril (Zestril) 20 mg PO DAILY MOSHE Stop: 02/10/18 08:59 Last Admin: 12/24/17 08:32 Dose: 20 mg Lorazepam (Ativan) 0.5 mg PO Q4HR PRN; Protocol PRN Reason: Agitation Stop: 02/17/18 17:12 Last Admin: 12/21/17 16:29 Dose: 0.5 mg Magnesium Oxide (Mag-Oxide) 400 mg PO DAILY MOSHE Stop: 02/10/18 08:59 Last Admin: 12/24/17 08:33 Dose: 400 mg Metformin HCl (Glucophage) 1,000 mg PO BIDWM MOSHE Stop: 02/10/18 07:59 Last Admin: 12/24/17 08:31 Dose: 1,000 mg Multivitamins/Vitamin C (Theragran) 1 tab PO DAILY MOSHE Stop: 02/10/18 08:59 Last Admin: 12/24/17 08:31 Dose: 1 tab Nitroglycerin (Nitrostat) 0.4 mg SL Q5MIN PRN PRN Reason: Chest Pain Stop: 02/09/18 20:39 Simvastatin (Zocor) 20 mg PO HS MOSHE PRN Reason: Protocol Stop: 02/09/18 20:59 Last Admin: 12/23/17 20:30 Dose: 20 mg Tamsulosin HCl (Flomax) 0.4 mg PO HS MOSHE Stop: 02/09/18 20:59 Last Admin: 12/23/17 20:31 Dose: 0.4 mg Zolpidem Tartrate (Ambien) 5 mg PO HS PRN PRN Reason: Insomnia Stop: 02/09/18 16:57 Last Admin: 12/23/17 20:31 Dose: 5 mg General: Alert, Other (Confused) HEENT: Atraumatic Neck: Supple Cardiovascular: Regular rate Abdomen: Bowel sounds, Soft Extremities: Other (No edema) Neurological: Other (Unstable gait) Skin: Other (warm and dry) Psych/Mental Status: Other (Confused, not oriented) Assessment/Plan - Problem List Patient Problems: All Active Problems AGITATION AND AGGRESSION (Acute) - Assessment Assessment: Current Active Problems Problem Status Onset AGITATION AND AGGRESSION Acute Patient is awake, alert, confused. DX: Incresed in agitation, HTN, Schizophrenia. - Plan Plan: Patient is follow by Psychiatry, Continue with SNF meds. Will continue to monitor. Nutritional Asmnt/Malnutr-PDOC - Dietary Evaluation Malnutrition Findings (Please click <Entered> for more info): Nutritional Asmnt/Malnutrition Start: 12/16/17 14: 18 Text: Status: Complete Freq: Document 12/16/17 14:18 HEN (Rec: 12/16/17 14:26 [email or web address]) Nutritional Asmnt/Malnutrition Patient General Information Nutritional Screening Moderate Risk Diagnosis psychosis Pertinent Medical Hx/Surgical Hx CAD, HTN, psychosis, schizophrenia, dyslipidemia Subjective Information Per EMR, PO intake 100% of meals. Current Diet Order/ Nutrition Support DARBY, double portion Pertinent Medications laisx, mag-oxide, glucophage, theragran Pertinent Labs 4/2 glucose 115, POC 107-115, A1c 6.0 Nutritional Hx/Data Height 1.7 m Height (Calculated Centimeters) 170.2 Current Weight (lbs) 90.718 kg Weight (Calculated Kilograms) 90.7 Weight (Calculated Grams) 40692.5 [place] Body Weight 148 Body Mass Index (BMI) 31.3 Weight Status Obese GI Symptoms GI Symptoms None Last BM 4/6 Difficult in: None Skin Integrity/Comment: bruises Current %PO Good (75-100%) Estimated Nutritional Goals BEE in Kcals: Adj wt of IBW Calories/Kcals/Kg 25-30 Kcals Calculated 3626-8044 Protein: Adj wt of IBW Protein g/k Protein Calculated 73 Fluid: ml 1825-2190ml (1ml/kcal) Intervention/Recommendation Comments 1. Continue with current diet as ordered. Continue monitor blood sugar. 2. Monitor PO intake, wt, labs and skin integrity 3. F/U as low risk in 7d ays, 12/23 Expected Outcomes/Goals Expected Outcomes/Goals 1. PO intake to meet at least 75% of nutritional needs. 2. Wt stability, skin to remain intact, labs to approach WNL.
--- NOTE | 2017-12-25 05:15 | Progress Notes ---
DATE: 12/24/2017 PSYCHIATRIC PROGRESS NOTE SUBJECTIVE: Staff was spoken to. The patient is interviewed. Mood is noted to be irritable. Affect is constricted. The patient is stating that he is frustrated for being in here for too long. The patient has been having difficult time to cope with the stress. The patient does not have any prison days and no place is willing to take him so far. The patient is insisting that he has his house and his boy is going to come and pick him up. The patient had not been however, able to verify anything so far. ASSESSMENT: The patient is still depressed and awaiting placement. PLAN: To continue the patient with the supportive therapy and followup. JOB# [id number]
[2017-12-25] MEDS: Multivitamin Tab PO SCH (08:28)
--- NOTE | 2017-12-25 09:06 | General Progress Note ---
Subjective - Review of Systems Service Date: 12/25/17 Subjective: I am ok. Objective - Results Result Diagrams: 12/11/17 12:30 12/11/17 12:30 Recent Labs: Laboratory Last Values WBC 9.5 Th/cmm (4.8-10.8) 12/11/17 12:30 RBC 5.29 Mil/cmm (3.80-5.80) 12/11/17 12:30 Hgb 15.5 gm/dL (12-16) 12/11/17 12:30 Hct 46.7 % (41.0-60) 12/11/17 12:30 MCV 88.4 fl (80-99) 12/11/17 12:30 MCH 29.4 pg (27.0-31.0) 12/11/17 12:30 MCHC Differential 33.2 pg (28.0-36.0) 12/11/17 12:30 RDW 15.9 % (11.5-20.0) 12/11/17 12:30 Plt Count 243 Th/cmm (150-400) 12/11/17 12:30 MPV 7.6 fl 12/11/17 12:30 Neutrophils % 67.0 % (40.0-80.0) 12/11/17 12:30 Lymphocytes % 21.5 % (20.0-50.0) 12/11/17 12:30 Monocytes % 5.8 % (2.0-10.0) 12/11/17 12:30 Eosinophils % 3.9 % (0.0-5.0) 12/11/17 12:30 Basophils % 1.8 % (0.0-2.0) 12/11/17 12:30 Sodium 138 mEq/L (136-145) 12/11/17 12:30 Potassium 3.7 mEq/L (3.5-5.1) 12/11/17 12:30 Chloride 105 mEq/L (98-107) 12/11/17 12:30 Carbon Dioxide 22.7 mEq/L (21.0-31.0) 12/11/17 12:30 Anion Gap 14.0 (7.0-16.0) 12/11/17 12:30 BUN 14 mg/dL (7-25) 12/11/17 12:30 Creatinine 0.7 mg/dL (0.7-1.3) 12/11/17 12:30 Est GFR ( Amer) > 60.0 ml/min (>90) 12/11/17 12:30 Est GFR (Non-Af Amer) > 60.0 ml/min 12/11/17 12:30 BUN/Creatinine Ratio 20.0 12/11/17 12:30 Glucose 115 mg/dL (70-105) H 12/11/17 12:30 POC Glucose 115 MG/DL (70 - 105) H 12/15/17 20:11 Hemoglobin A1c % 6.0 % (4.0-6.0) 12/11/17 12:30 Calcium 9.3 mg/dL (8.6-10.3) 12/11/17 12:30 Total Bilirubin 0.6 mg/dL (0.3-1.0) 12/11/17 12:30 AST 16 U/L (13-39) 12/11/17 12:30 ALT 15 U/L (7-52) 12/11/17 12:30 Alkaline Phosphatase 86 U/L (34-104) 12/11/17 12:30 Total Protein 7.0 gm/dL (6.0-8.3) 12/11/17 12:30 Albumin 4.3 gm/dL (4.2-5.5) 12/11/17 12:30 Globulin 2.7 gm/dL 12/11/17 12:30 Albumin/Globulin Ratio 1.6 (1.0-1.8) 12/11/17 12:30 Triglycerides 106 mg/dL (<150) 12/11/17 12:30 Cholesterol 123 mg/dL (<200) 12/11/17 12:30 LDL Cholesterol Direct 96 mg/dL (75-193) 12/11/17 12:30 HDL Cholesterol 26 mg/dL (23-92) 12/11/17 12:30 TSH 1.06 uIU/ml (0.34-5.60) 12/11/17 12:30 Urine Source CLEAN C 12/11/17 12:15 Urine Color YELLOW 12/11/17 12:15 Urine Clarity CLEAR (CLEAR) 12/11/17 12:15 Urine pH 7.0 (4.6 - 8.0) 12/11/17 12:15 Ur Specific [place] 1.015 (1.005-1.030) 12/11/17 12:15 Urine Protein NEGATIVE mg/dL (NEGATIVE) 12/11/17 12:15 Urine Glucose (UA) NEGATIVE mg/dL (NEGATIVE) 12/11/17 12:15 Urine Ketones NEGATIVE mg/dL (NEGATIVE) 12/11/17 12:15 Urine Blood NEGATIVE (NEGATIVE) 12/11/17 12:15 Urine Nitrate NEGATIVE (NEGATIVE) 12/11/17 12:15 Urine Bilirubin NEGATIVE (NEGATIVE) 12/11/17 12:15 Urine Urobilinogen 1.0 E.U./dL (0.2 - 1.0) 12/11/17 12:15 Ur Leukocyte Esterase NEGATIVE (NEGATIVE) 12/11/17 12:15 Urine RBC 0-2 /hpf (0-5) H 12/11/17 12:15 Urine WBC 0-2 /hpf (0-5) 12/11/17 12:15 Ur Epithelial Cells FEW /lpf (FEW) 12/11/17 12:15 Urine Bacteria OCCASIONAL /hpf (NONE SEEN) 12/11/17 12:15 Salicylates < 25.0 mg/L (30.0-100.0) L 12/11/17 12:30 Acetaminophen < 10.0 ug/mL (10.0-30.0) L 12/11/17 12:30 Ethyl Alcohol < 10 mg/dL (0-10) 12/11/17 12:30 RPR NONREACTIVE (NONREACTIVE) 12/11/17 12:30 - Physical Exam Vitals and I&O: Vital Signs Temp 96.8 F 12/25/17 06:34 Pulse 62 12/25/17 08:29 Resp 18 12/25/17 06:34 BP 131/60 12/25/17 08:29 Pulse Ox 98 12/25/17 06:34 Intake & Output 12/24/17 12/25/17 12/25/17 18:59 06:59 18:59 Intake Total 1200 240 Balance 1200 240 Weight (lbs) 90.718 kg Intake: Oral 1200 240 Other: # Voids 4 3 # Bowel Movements 1 0 Stool Characteristics Formed Weight Source Bedscale Active Medications: Current Medications Acetaminophen (Tylenol) 650 mg PO Q4HR PRN PRN Reason: Mild Pain / Temp above 100 Stop: 02/09/18 16:57 Last Admin: 12/23/17 20:30 Dose: 650 mg Al Hydrox/Mg Hydrox/Simethicone (Maalox) 30 ml PO Q4HR PRN PRN Reason: GI DISTRESS Stop: 02/09/18 16:57 Albuterol/Ipratropium (Duoneb Neb) 3 ml HHN Q6HR PRN PRN Reason: WHEEZING/SOB Stop: 02/09/18 20:39 Amlodipine Besylate (Norvasc) 5 mg PO DAILY MOSHE Stop: 02/10/18 08:59 Last Admin: 12/25/17 08:28 Dose: 5 mg Aspirin (Aspirin) 325 mg PO DAILY MOSHE Stop: 02/10/18 08:59 Last Admin: 12/25/17 08:27 Dose: 325 mg Carvedilol (Coreg) 3.125 mg PO BID MOSHE Stop: 02/10/18 08:59 Last Admin: 12/25/17 08:29 Dose: 3.125 mg Citalopram Hydrobromide (Celexa) 20 mg PO DAILY MOSHE PRN Reason: Protocol Stop: 02/18/18 19:12 Last Admin: 12/25/17 08:29 Dose: 20 mg Furosemide (Lasix) 20 mg PO DAILY MOSHE Stop: 02/10/18 08:59 Last Admin: 12/25/17 08:28 Dose: 20 mg Gabapentin (Neurontin) 300 mg PO BID MOSHE Stop: 02/10/18 08:59 Last Admin: 12/25/17 08:27 Dose: 300 mg Lisinopril (Zestril) 20 mg PO DAILY MOSHE Stop: 02/10/18 08:59 Last Admin: 12/25/17 08:28 Dose: 20 mg Lorazepam (Ativan) 0.5 mg PO Q4HR PRN; Protocol PRN Reason: Agitation Stop: 02/17/18 17:12 Last Admin: 12/25/17 08:28 Dose: 0.5 mg Magnesium Oxide (Mag-Oxide) 400 mg PO DAILY MOSHE Stop: 02/10/18 08:59 Last Admin: 12/25/17 08:27 Dose: 400 mg Metformin HCl (Glucophage) 1,000 mg PO BIDWM MOSHE Stop: 02/10/18 07:59 Last Admin: 12/25/17 08:28 Dose: 1,000 mg Multivitamins/Vitamin C (Theragran) 1 tab PO DAILY MOSHE Stop: 02/10/18 08:59 Last Admin: 12/25/17 08:28 Dose: 1 tab Nitroglycerin (Nitrostat) 0.4 mg SL Q5MIN PRN PRN Reason: Chest Pain Stop: 02/09/18 20:39 Simvastatin (Zocor) 20 mg PO HS MOSHE PRN Reason: Protocol Stop: 02/09/18 20:59 Last Admin: 12/24/17 20:47 Dose: 20 mg Tamsulosin HCl (Flomax) 0.4 mg PO HS MOSHE Stop: 02/09/18 20:59 Last Admin: 12/24/17 20:47 Dose: 0.4 mg Zolpidem Tartrate (Ambien) 5 mg PO HS PRN PRN Reason: Insomnia Stop: 02/09/18 16:57 Last Admin: 12/23/17 20:31 Dose: 5 mg General: Alert, Other (Confused) HEENT: Atraumatic Neck: Supple Cardiovascular: Regular rate Abdomen: Bowel sounds, Soft Extremities: Other (No edema) Neurological: Other (Unstable gait) Skin: Other (warm and dry) Psych/Mental Status: Other (Confused, not oriented) Assessment/Plan - Problem List Patient Problems: All Active Problems AGITATION AND AGGRESSION (Acute) - Assessment Assessment: Current Active Problems Problem Status Onset AGITATION AND AGGRESSION Acute Patient is awake, alert, confused. DX: Incresed in agitation, HTN, Schizophrenia. - Plan Plan: Patient is follow by Psychiatry, Continue with SNF meds. Will continue to monitor. Nutritional Asmnt/Malnutr-PDOC - Dietary Evaluation Malnutrition Findings (Please click <Entered> for more info): Nutritional Asmnt/Malnutrition Start: 12/16/17 14: 18 Text: Status: Complete Freq: Document 12/16/17 14:18 [email or web address] (Rec: 12/16/17 14:26 [email or web address]) Nutritional Asmnt/Malnutrition Patient General Information Nutritional Screening Moderate Risk Diagnosis psychosis Pertinent Medical Hx/Surgical Hx CAD, HTN, psychosis, schizophrenia, dyslipidemia Subjective Information Per EMR, PO intake 100% of meals. Current Diet Order/ Nutrition Support DARBY, double portion Pertinent Medications laisx, mag-oxide, glucophage, theragran Pertinent Labs 4/2 glucose 115, POC 107-115, A1c 6.0 Nutritional Hx/Data Height 1.7 m Height (Calculated Centimeters) 170.2 Current Weight (lbs) 90.718 kg Weight (Calculated Kilograms) 90.7 Weight (Calculated Grams) 23087.5 [place] Body Weight 148 Body Mass Index (BMI) 31.3 Weight Status Obese GI Symptoms GI Symptoms None Last BM 4/6 Difficult in: None Skin Integrity/Comment: bruises Current %PO Good (75-100%) Estimated Nutritional Goals BEE in Kcals: Adj wt of IBW Calories/Kcals/Kg 25-30 Kcals Calculated 3665-4635 Protein: Adj wt of IBW Protein g/k Protein Calculated 73 Fluid: ml 1825-2190ml (1ml/kcal) Intervention/Recommendation Comments 1. Continue with current diet as ordered. Continue monitor blood sugar. 2. Monitor PO intake, wt, labs and skin integrity 3. F/U as low risk in 7d ays, 12/23 Expected Outcomes/Goals Expected Outcomes/Goals 1. PO intake to meet at least 75% of nutritional needs. 2. Wt stability, skin to remain intact, labs to approach WNL.
--- NOTE | 2017-12-26 02:35 | Progress Notes ---
DATE: 12/25/2017 SUBJECTIVE: Staff was spoken to. The patient is interviewed. Mood is noted to be anxious. The patient is stating that he has been trying to get in touch with his boy, but has not been responding. The patient is stating that his nephew works 3 jobs and is very difficult to get in touch with him. Staff are trying to locate, but so far they are not able to locate and the patient has no place to return to. PLAN: To continue the patient with the supportive therapy and await for placement. JOB# [id number]
[2017-12-26] MEDS: Multivitamin Tab PO SCH (08:18)
--- NOTE | 2017-12-26 09:05 | General Progress Note ---
Subjective - Review of Systems Service Date: 12/26/17 Subjective: I am ok. Objective - Results Result Diagrams: 12/11/17 12:30 12/11/17 12:30 Recent Labs: Laboratory Last Values WBC 9.5 Th/cmm (4.8-10.8) 12/11/17 12:30 RBC 5.29 Mil/cmm (3.80-5.80) 12/11/17 12:30 Hgb 15.5 gm/dL (12-16) 12/11/17 12:30 Hct 46.7 % (41.0-60) 12/11/17 12:30 MCV 88.4 fl (80-99) 12/11/17 12:30 MCH 29.4 pg (27.0-31.0) 12/11/17 12:30 MCHC Differential 33.2 pg (28.0-36.0) 12/11/17 12:30 RDW 15.9 % (11.5-20.0) 12/11/17 12:30 Plt Count 243 Th/cmm (150-400) 12/11/17 12:30 MPV 7.6 fl 12/11/17 12:30 Neutrophils % 67.0 % (40.0-80.0) 12/11/17 12:30 Lymphocytes % 21.5 % (20.0-50.0) 12/11/17 12:30 Monocytes % 5.8 % (2.0-10.0) 12/11/17 12:30 Eosinophils % 3.9 % (0.0-5.0) 12/11/17 12:30 Basophils % 1.8 % (0.0-2.0) 12/11/17 12:30 Sodium 138 mEq/L (136-145) 12/11/17 12:30 Potassium 3.7 mEq/L (3.5-5.1) 12/11/17 12:30 Chloride 105 mEq/L (98-107) 12/11/17 12:30 Carbon Dioxide 22.7 mEq/L (21.0-31.0) 12/11/17 12:30 Anion Gap 14.0 (7.0-16.0) 12/11/17 12:30 BUN 14 mg/dL (7-25) 12/11/17 12:30 Creatinine 0.7 mg/dL (0.7-1.3) 12/11/17 12:30 Est GFR ( Amer) > 60.0 ml/min (>90) 12/11/17 12:30 Est GFR (Non-Af Amer) > 60.0 ml/min 12/11/17 12:30 BUN/Creatinine Ratio 20.0 12/11/17 12:30 Glucose 115 mg/dL (70-105) H 12/11/17 12:30 POC Glucose 115 MG/DL (70 - 105) H 12/15/17 20:11 Hemoglobin A1c % 6.0 % (4.0-6.0) 12/11/17 12:30 Calcium 9.3 mg/dL (8.6-10.3) 12/11/17 12:30 Total Bilirubin 0.6 mg/dL (0.3-1.0) 12/11/17 12:30 AST 16 U/L (13-39) 12/11/17 12:30 ALT 15 U/L (7-52) 12/11/17 12:30 Alkaline Phosphatase 86 U/L (34-104) 12/11/17 12:30 Total Protein 7.0 gm/dL (6.0-8.3) 12/11/17 12:30 Albumin 4.3 gm/dL (4.2-5.5) 12/11/17 12:30 Globulin 2.7 gm/dL 12/11/17 12:30 Albumin/Globulin Ratio 1.6 (1.0-1.8) 12/11/17 12:30 Triglycerides 106 mg/dL (<150) 12/11/17 12:30 Cholesterol 123 mg/dL (<200) 12/11/17 12:30 LDL Cholesterol Direct 96 mg/dL (75-193) 12/11/17 12:30 HDL Cholesterol 26 mg/dL (23-92) 12/11/17 12:30 TSH 1.06 uIU/ml (0.34-5.60) 12/11/17 12:30 Urine Source CLEAN C 12/11/17 12:15 Urine Color YELLOW 12/11/17 12:15 Urine Clarity CLEAR (CLEAR) 12/11/17 12:15 Urine pH 7.0 (4.6 - 8.0) 12/11/17 12:15 Ur Specific [place] 1.015 (1.005-1.030) 12/11/17 12:15 Urine Protein NEGATIVE mg/dL (NEGATIVE) 12/11/17 12:15 Urine Glucose (UA) NEGATIVE mg/dL (NEGATIVE) 12/11/17 12:15 Urine Ketones NEGATIVE mg/dL (NEGATIVE) 12/11/17 12:15 Urine Blood NEGATIVE (NEGATIVE) 12/11/17 12:15 Urine Nitrate NEGATIVE (NEGATIVE) 12/11/17 12:15 Urine Bilirubin NEGATIVE (NEGATIVE) 12/11/17 12:15 Urine Urobilinogen 1.0 E.U./dL (0.2 - 1.0) 12/11/17 12:15 Ur Leukocyte Esterase NEGATIVE (NEGATIVE) 12/11/17 12:15 Urine RBC 0-2 /hpf (0-5) H 12/11/17 12:15 Urine WBC 0-2 /hpf (0-5) 12/11/17 12:15 Ur Epithelial Cells FEW /lpf (FEW) 12/11/17 12:15 Urine Bacteria OCCASIONAL /hpf (NONE SEEN) 12/11/17 12:15 Salicylates < 25.0 mg/L (30.0-100.0) L 12/11/17 12:30 Acetaminophen < 10.0 ug/mL (10.0-30.0) L 12/11/17 12:30 Ethyl Alcohol < 10 mg/dL (0-10) 12/11/17 12:30 RPR NONREACTIVE (NONREACTIVE) 12/11/17 12:30 - Physical Exam Vitals and I&O: Vital Signs Temp 96.4 F 12/26/17 06:14 Pulse 92 12/26/17 08:28 Resp 20 12/26/17 06:14 BP 136/73 12/26/17 08:29 Pulse Ox 97 12/26/17 06:14 Intake & Output 12/25/17 12/26/17 12/26/17 18:59 06:59 18:59 Intake Total 1800 360 Balance 1800 360 Intake: Oral 1800 360 Other: # Voids 4 1 # Bowel Movements 1 0 Stool Characteristics Formed [place] Active Medications: Current Medications Acetaminophen (Tylenol) 650 mg PO Q4HR PRN PRN Reason: Mild Pain / Temp above 100 Stop: 02/09/18 16:57 Last Admin: 12/23/17 20:30 Dose: 650 mg Al Hydrox/Mg Hydrox/Simethicone (Maalox) 30 ml PO Q4HR PRN PRN Reason: GI DISTRESS Stop: 02/09/18 16:57 Albuterol/Ipratropium (Duoneb Neb) 3 ml HHN Q6HR PRN PRN Reason: WHEEZING/SOB Stop: 02/09/18 20:39 Amlodipine Besylate (Norvasc) 5 mg PO DAILY MOSHE Stop: 02/10/18 08:59 Last Admin: 12/26/17 08:19 Dose: 5 mg Aspirin (Aspirin) 325 mg PO DAILY MOSHE Stop: 02/10/18 08:59 Last Admin: 12/26/17 08:18 Dose: 325 mg Carvedilol (Coreg) 3.125 mg PO BID MOSHE Stop: 02/10/18 08:59 Last Admin: 12/26/17 08:28 Dose: 3.125 mg Citalopram Hydrobromide (Celexa) 20 mg PO DAILY MOSHE PRN Reason: Protocol Stop: 02/18/18 19:12 Last Admin: 12/26/17 08:19 Dose: 20 mg Furosemide (Lasix) 20 mg PO DAILY MOSHE Stop: 02/10/18 08:59 Last Admin: 12/26/17 08:29 Dose: 20 mg Gabapentin (Neurontin) 300 mg PO BID MOHSE Stop: 02/10/18 08:59 Last Admin: 12/26/17 08:19 Dose: 300 mg Lisinopril (Zestril) 20 mg PO DAILY MOSHE Stop: 02/10/18 08:59 Last Admin: 12/26/17 08:28 Dose: 20 mg Lorazepam (Ativan) 0.5 mg PO Q4HR PRN; Protocol PRN Reason: Agitation Stop: 02/17/18 17:12 Last Admin: 12/26/17 08:19 Dose: 0.5 mg Magnesium Oxide (Mag-Oxide) 400 mg PO DAILY MOSHE Stop: 02/10/18 08:59 Last Admin: 12/26/17 08:18 Dose: 400 mg Metformin HCl (Glucophage) 1,000 mg PO BIDWM MOSHE Stop: 02/10/18 07:59 Last Admin: 12/26/17 08:19 Dose: 1,000 mg Multivitamins/Vitamin C (Theragran) 1 tab PO DAILY MOSHE Stop: 02/10/18 08:59 Last Admin: 12/26/17 08:18 Dose: 1 tab Nitroglycerin (Nitrostat) 0.4 mg SL Q5MIN PRN PRN Reason: Chest Pain Stop: 02/09/18 20:39 Simvastatin (Zocor) 20 mg PO HS MOSHE PRN Reason: Protocol Stop: 02/09/18 20:59 Last Admin: 12/25/17 20:15 Dose: 20 mg Tamsulosin HCl (Flomax) 0.4 mg PO HS MOSHE Stop: 02/09/18 20:59 Last Admin: 12/25/17 20:16 Dose: 0.4 mg Zolpidem Tartrate (Ambien) 5 mg PO HS PRN PRN Reason: Insomnia Stop: 02/09/18 16:57 Last Admin: 12/25/17 20:16 Dose: 5 mg General: Alert, Other (Confused) HEENT: Atraumatic Neck: Supple Cardiovascular: Regular rate Abdomen: Bowel sounds, Soft Extremities: Other (No edema) Neurological: Other (Unstable gait) Skin: Other (warm and dry) Psych/Mental Status: Other (Confused, not oriented) Assessment/Plan - Problem List Patient Problems: All Active Problems AGITATION AND AGGRESSION (Acute) - Assessment Assessment: Current Active Problems Problem Status Onset AGITATION AND AGGRESSION Acute Patient is awake, alert, confused. DX: Incresed in agitation, HTN, Schizophrenia. - Plan Plan: Patient is follow by Psychiatry, Continue with SNF meds. Will continue to monitor. Nutritional Asmnt/Malnutr-PDOC - Dietary Evaluation Malnutrition Findings (Please click <Entered> for more info): Nutritional Asmnt/Malnutrition Start: 12/16/17 14: 18 Text: Status: Complete Freq: Document 12/16/17 14:18 HEN (Rec: 12/16/17 14:26 [facility] [email or web address]) Nutritional Asmnt/Malnutrition Patient General Information Nutritional Screening Moderate Risk Diagnosis psychosis Pertinent Medical Hx/Surgical Hx CAD, HTN, psychosis, schizophrenia, dyslipidemia Subjective Information Per EMR, PO intake 100% of meals. Current Diet Order/ Nutrition Support DARBY, double portion Pertinent Medications laisx, mag-oxide, glucophage, theragran Pertinent Labs 4/2 glucose 115, POC 107-115, A1c 6.0 Nutritional Hx/Data Height 1.7 m Height (Calculated Centimeters) 170.2 Current Weight (lbs) 90.718 kg Weight (Calculated Kilograms) 90.7 Weight (Calculated Grams) 59593.5 [place] Body Weight 148 Body Mass Index (BMI) 31.3 Weight Status Obese GI Symptoms GI Symptoms None Last BM 4/6 Difficult in: None Skin Integrity/Comment: bruises Current %PO Good (75-100%) Estimated Nutritional Goals BEE in Kcals: Adj wt of IBW Calories/Kcals/Kg 25-30 Kcals Calculated 9991-9141 Protein: Adj wt of IBW Protein g/k Protein Calculated 73 Fluid: ml 1825-2190ml (1ml/kcal) Intervention/Recommendation Comments 1. Continue with current diet as ordered. Continue monitor blood sugar. 2. Monitor PO intake, wt, labs and skin integrity 3. F/U as low risk in 7d ays, 12/23 Expected Outcomes/Goals Expected Outcomes/Goals 1. PO intake to meet at least 75% of nutritional needs. 2. Wt stability, skin to remain intact, labs to approach WNL.
--- NOTE | 2017-12-26 14:14 | Progress Notes ---
DATE: 12/26/2017 SUBJECTIVE: Staff was spoken to. The patient is interviewed. Mood is a bit irritable. Affect is constricted. Insight and judgment at this time are noted to be still impaired. Impulse control seems to be improving. The patient is frustrated that his girlfriend and he cannot go home. The patient's mood swings are coming under control. No side effects to the medications are noted. The patient is currently on Celexa and is able to tolerate the medication. ASSESSMENT: The patient is stabilizing. PLAN: To await for placement and follow the patient up. JOB# [id number]
[2017-12-27] MEDS: Multivitamin Tab PO SCH (08:42)
--- NOTE | 2017-12-27 13:08 | General Progress Note ---
Subjective - Review of Systems Service Date: 12/27/17 Subjective: I am ok. Objective - Results Result Diagrams: 12/11/17 12:30 12/11/17 12:30 Recent Labs: Laboratory Last Values WBC 9.5 Th/cmm (4.8-10.8) 12/11/17 12:30 RBC 5.29 Mil/cmm (3.80-5.80) 12/11/17 12:30 Hgb 15.5 gm/dL (12-16) 12/11/17 12:30 Hct 46.7 % (41.0-60) 12/11/17 12:30 MCV 88.4 fl (80-99) 12/11/17 12:30 MCH 29.4 pg (27.0-31.0) 12/11/17 12:30 MCHC Differential 33.2 pg (28.0-36.0) 12/11/17 12:30 RDW 15.9 % (11.5-20.0) 12/11/17 12:30 Plt Count 243 Th/cmm (150-400) 12/11/17 12:30 MPV 7.6 fl 12/11/17 12:30 Neutrophils % 67.0 % (40.0-80.0) 12/11/17 12:30 Lymphocytes % 21.5 % (20.0-50.0) 12/11/17 12:30 Monocytes % 5.8 % (2.0-10.0) 12/11/17 12:30 Eosinophils % 3.9 % (0.0-5.0) 12/11/17 12:30 Basophils % 1.8 % (0.0-2.0) 12/11/17 12:30 Sodium 138 mEq/L (136-145) 12/11/17 12:30 Potassium 3.7 mEq/L (3.5-5.1) 12/11/17 12:30 Chloride 105 mEq/L (98-107) 12/11/17 12:30 Carbon Dioxide 22.7 mEq/L (21.0-31.0) 12/11/17 12:30 Anion Gap 14.0 (7.0-16.0) 12/11/17 12:30 BUN 14 mg/dL (7-25) 12/11/17 12:30 Creatinine 0.7 mg/dL (0.7-1.3) 12/11/17 12:30 Est GFR ( Amer) > 60.0 ml/min (>90) 12/11/17 12:30 Est GFR (Non-Af Amer) > 60.0 ml/min 12/11/17 12:30 BUN/Creatinine Ratio 20.0 12/11/17 12:30 Glucose 115 mg/dL (70-105) H 12/11/17 12:30 POC Glucose 115 MG/DL (70 - 105) H 12/15/17 20:11 Hemoglobin A1c % 6.0 % (4.0-6.0) 12/11/17 12:30 Calcium 9.3 mg/dL (8.6-10.3) 12/11/17 12:30 Total Bilirubin 0.6 mg/dL (0.3-1.0) 12/11/17 12:30 AST 16 U/L (13-39) 12/11/17 12:30 ALT 15 U/L (7-52) 12/11/17 12:30 Alkaline Phosphatase 86 U/L (34-104) 12/11/17 12:30 Total Protein 7.0 gm/dL (6.0-8.3) 12/11/17 12:30 Albumin 4.3 gm/dL (4.2-5.5) 12/11/17 12:30 Globulin 2.7 gm/dL 12/11/17 12:30 Albumin/Globulin Ratio 1.6 (1.0-1.8) 12/11/17 12:30 Triglycerides 106 mg/dL (<150) 12/11/17 12:30 Cholesterol 123 mg/dL (<200) 12/11/17 12:30 LDL Cholesterol Direct 96 mg/dL (75-193) 12/11/17 12:30 HDL Cholesterol 26 mg/dL (23-92) 12/11/17 12:30 TSH 1.06 uIU/ml (0.34-5.60) 12/11/17 12:30 Urine Source CLEAN C 12/11/17 12:15 Urine Color YELLOW 12/11/17 12:15 Urine Clarity CLEAR (CLEAR) 12/11/17 12:15 Urine pH 7.0 (4.6 - 8.0) 12/11/17 12:15 Ur Specific [place] 1.015 (1.005-1.030) 12/11/17 12:15 Urine Protein NEGATIVE mg/dL (NEGATIVE) 12/11/17 12:15 Urine Glucose (UA) NEGATIVE mg/dL (NEGATIVE) 12/11/17 12:15 Urine Ketones NEGATIVE mg/dL (NEGATIVE) 12/11/17 12:15 Urine Blood NEGATIVE (NEGATIVE) 12/11/17 12:15 Urine Nitrate NEGATIVE (NEGATIVE) 12/11/17 12:15 Urine Bilirubin NEGATIVE (NEGATIVE) 12/11/17 12:15 Urine Urobilinogen 1.0 E.U./dL (0.2 - 1.0) 12/11/17 12:15 Ur Leukocyte Esterase NEGATIVE (NEGATIVE) 12/11/17 12:15 Urine RBC 0-2 /hpf (0-5) H 12/11/17 12:15 Urine WBC 0-2 /hpf (0-5) 12/11/17 12:15 Ur Epithelial Cells FEW /lpf (FEW) 12/11/17 12:15 Urine Bacteria OCCASIONAL /hpf (NONE SEEN) 12/11/17 12:15 Salicylates < 25.0 mg/L (30.0-100.0) L 12/11/17 12:30 Acetaminophen < 10.0 ug/mL (10.0-30.0) L 12/11/17 12:30 Ethyl Alcohol < 10 mg/dL (0-10) 12/11/17 12:30 RPR NONREACTIVE (NONREACTIVE) 12/11/17 12:30 - Physical Exam Vitals and I&O: Vital Signs Temp 98.1 F 12/27/17 06:19 Pulse 80 12/27/17 08:42 Resp 20 12/27/17 06:19 BP 134/67 12/27/17 08:42 Pulse Ox 99 12/27/17 06:19 Intake & Output 12/26/17 12/27/17 12/27/17 18:59 06:59 18:59 Intake Total 1200 120 Balance 1200 120 Intake: Oral 1200 120 Other: # Voids 3 3 # Bowel Movements 1 Active Medications: Current Medications Acetaminophen (Tylenol) 650 mg PO Q4HR PRN PRN Reason: Mild Pain / Temp above 100 Stop: 02/09/18 16:57 Last Admin: 12/23/17 20:30 Dose: 650 mg Al Hydrox/Mg Hydrox/Simethicone (Maalox) 30 ml PO Q4HR PRN PRN Reason: GI DISTRESS Stop: 02/09/18 16:57 Albuterol/Ipratropium (Duoneb Neb) 3 ml HHN Q6HR PRN PRN Reason: WHEEZING/SOB Stop: 02/09/18 20:39 Amlodipine Besylate (Norvasc) 5 mg PO DAILY MOSHE Stop: 02/10/18 08:59 Last Admin: 12/27/17 08:42 Dose: 5 mg Aspirin (Aspirin) 325 mg PO DAILY MOSHE Stop: 02/10/18 08:59 Last Admin: 12/27/17 08:43 Dose: 325 mg Carvedilol (Coreg) 3.125 mg PO BID MOSHE Stop: 02/10/18 08:59 Last Admin: 12/27/17 08:42 Dose: 3.125 mg Citalopram Hydrobromide (Celexa) 20 mg PO DAILY MOSHE PRN Reason: Protocol Stop: 02/18/18 19:12 Last Admin: 12/27/17 08:43 Dose: 20 mg Furosemide (Lasix) 20 mg PO DAILY MOSHE Stop: 02/10/18 08:59 Last Admin: 12/27/17 08:42 Dose: 20 mg Gabapentin (Neurontin) 300 mg PO BID MOSHE Stop: 02/10/18 08:59 Last Admin: 12/27/17 08:43 Dose: 300 mg Lisinopril (Zestril) 20 mg PO DAILY MOSHE Stop: 02/10/18 08:59 Last Admin: 12/27/17 08:41 Dose: 20 mg Lorazepam (Ativan) 0.5 mg PO Q4HR PRN; Protocol PRN Reason: Agitation Stop: 02/17/18 17:12 Last Admin: 12/26/17 17:36 Dose: 0.5 mg Magnesium Oxide (Mag-Oxide) 400 mg PO DAILY MOSHE Stop: 02/10/18 08:59 Last Admin: 12/27/17 08:42 Dose: 400 mg Metformin HCl (Glucophage) 1,000 mg PO BIDWM MOSHE Stop: 02/10/18 07:59 Last Admin: 12/27/17 08:42 Dose: 1,000 mg Multivitamins/Vitamin C (Theragran) 1 tab PO DAILY MOSHE Stop: 02/10/18 08:59 Last Admin: 12/27/17 08:42 Dose: 1 tab Nitroglycerin (Nitrostat) 0.4 mg SL Q5MIN PRN PRN Reason: Chest Pain Stop: 02/09/18 20:39 Simvastatin (Zocor) 20 mg PO HS MOSHE PRN Reason: Protocol Stop: 02/09/18 20:59 Last Admin: 12/26/17 20:43 Dose: 20 mg Tamsulosin HCl (Flomax) 0.4 mg PO HS MOSHE Stop: 02/09/18 20:59 Last Admin: 12/26/17 20:44 Dose: 0.4 mg Zolpidem Tartrate (Ambien) 5 mg PO HS PRN PRN Reason: Insomnia Stop: 02/09/18 16:57 Last Admin: 12/26/17 21:10 Dose: 5 mg General: Alert, Other (Confused) HEENT: Atraumatic Neck: Supple Cardiovascular: Regular rate Abdomen: Bowel sounds, Soft Extremities: Other (No edema) Neurological: Other (Unstable gait) Skin: Other (warm and dry) Psych/Mental Status: Other (Confused, not oriented) Assessment/Plan - Problem List Patient Problems: All Active Problems AGITATION AND AGGRESSION (Acute) - Assessment Assessment: Current Active Problems Problem Status Onset AGITATION AND AGGRESSION Acute Patient is awake, alert, confused. DX: Incresed in agitation, HTN, Schizophrenia. - Plan Plan: Patient is follow by Psychiatry, Continue with SNF meds. Will continue to monitor. Nutritional Asmnt/Malnutr-PDOC - Dietary Evaluation Malnutrition Findings (Please click <Entered> for more info): Nutritional Asmnt/Malnutrition Start: 12/16/17 14: 18 Text: Status: Complete Freq: Document 12/16/17 14:18 LCHENG (Rec: 12/16/17 14:26 [email or web address]) Nutritional Asmnt/Malnutrition Patient General Information Nutritional Screening Moderate Risk Diagnosis psychosis Pertinent Medical Hx/Surgical Hx CAD, HTN, psychosis, schizophrenia, dyslipidemia Subjective Information Per EMR, PO intake 100% of meals. Current Diet Order/ Nutrition Support DRABY, double portion Pertinent Medications laisx, mag-oxide, glucophage, theragran Pertinent Labs 4/2 glucose 115, POC 107-115, A1c 6.0 Nutritional Hx/Data Height 1.7 m Height (Calculated Centimeters) 170.2 Current Weight (lbs) 90.718 kg Weight (Calculated Kilograms) 90.7 Weight (Calculated Grams) 39896.5 [place] Body Weight 148 Body Mass Index (BMI) 31.3 Weight Status Obese GI Symptoms GI Symptoms None Last BM 4/6 Difficult in: None Skin Integrity/Comment: bruises Current %PO Good (75-100%) Estimated Nutritional Goals BEE in Kcals: Adj wt of IBW Calories/Kcals/Kg 25-30 Kcals Calculated 7112-5738 Protein: Adj wt of IBW Protein g/k Protein Calculated 73 Fluid: ml 1825-2190ml (1ml/kcal) Intervention/Recommendation Comments 1. Continue with current diet as ordered. Continue monitor blood sugar. 2. Monitor PO intake, wt, labs and skin integrity 3. F/U as low risk in 7d ays, 12/23 Expected Outcomes/Goals Expected Outcomes/Goals 1. PO intake to meet at least 75% of nutritional needs. 2. Wt stability, skin to remain intact, labs to approach WNL.
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
[2017-12-28] MEDS: Multivitamin Tab PO SCH (08:11)
--- NOTE | 2017-12-28 08:58 | General Progress Note ---
Subjective - Review of Systems Service Date: 12/28/17 Subjective: I am ok. Objective - Results Result Diagrams: 12/11/17 12:30 12/11/17 12:30 Recent Labs: Laboratory Last Values WBC 9.5 Th/cmm (4.8-10.8) 12/11/17 12:30 RBC 5.29 Mil/cmm (3.80-5.80) 12/11/17 12:30 Hgb 15.5 gm/dL (12-16) 12/11/17 12:30 Hct 46.7 % (41.0-60) 12/11/17 12:30 MCV 88.4 fl (80-99) 12/11/17 12:30 MCH 29.4 pg (27.0-31.0) 12/11/17 12:30 MCHC Differential 33.2 pg (28.0-36.0) 12/11/17 12:30 RDW 15.9 % (11.5-20.0) 12/11/17 12:30 Plt Count 243 Th/cmm (150-400) 12/11/17 12:30 MPV 7.6 fl 12/11/17 12:30 Neutrophils % 67.0 % (40.0-80.0) 12/11/17 12:30 Lymphocytes % 21.5 % (20.0-50.0) 12/11/17 12:30 Monocytes % 5.8 % (2.0-10.0) 12/11/17 12:30 Eosinophils % 3.9 % (0.0-5.0) 12/11/17 12:30 Basophils % 1.8 % (0.0-2.0) 12/11/17 12:30 Sodium 138 mEq/L (136-145) 12/11/17 12:30 Potassium 3.7 mEq/L (3.5-5.1) 12/11/17 12:30 Chloride 105 mEq/L (98-107) 12/11/17 12:30 Carbon Dioxide 22.7 mEq/L (21.0-31.0) 12/11/17 12:30 Anion Gap 14.0 (7.0-16.0) 12/11/17 12:30 BUN 14 mg/dL (7-25) 12/11/17 12:30 Creatinine 0.7 mg/dL (0.7-1.3) 12/11/17 12:30 Est GFR ( Amer) > 60.0 ml/min (>90) 12/11/17 12:30 Est GFR (Non-Af Amer) > 60.0 ml/min 12/11/17 12:30 BUN/Creatinine Ratio 20.0 12/11/17 12:30 Glucose 115 mg/dL (70-105) H 12/11/17 12:30 POC Glucose 115 MG/DL (70 - 105) H 12/15/17 20:11 Hemoglobin A1c % 6.0 % (4.0-6.0) 12/11/17 12:30 Calcium 9.3 mg/dL (8.6-10.3) 12/11/17 12:30 Total Bilirubin 0.6 mg/dL (0.3-1.0) 12/11/17 12:30 AST 16 U/L (13-39) 12/11/17 12:30 ALT 15 U/L (7-52) 12/11/17 12:30 Alkaline Phosphatase 86 U/L (34-104) 12/11/17 12:30 Total Protein 7.0 gm/dL (6.0-8.3) 12/11/17 12:30 Albumin 4.3 gm/dL (4.2-5.5) 12/11/17 12:30 Globulin 2.7 gm/dL 12/11/17 12:30 Albumin/Globulin Ratio 1.6 (1.0-1.8) 12/11/17 12:30 Triglycerides 106 mg/dL (<150) 12/11/17 12:30 Cholesterol 123 mg/dL (<200) 12/11/17 12:30 LDL Cholesterol Direct 96 mg/dL (75-193) 12/11/17 12:30 HDL Cholesterol 26 mg/dL (23-92) 12/11/17 12:30 TSH 1.06 uIU/ml (0.34-5.60) 12/11/17 12:30 Urine Source CLEAN C 12/11/17 12:15 Urine Color YELLOW 12/11/17 12:15 Urine Clarity CLEAR (CLEAR) 12/11/17 12:15 Urine pH 7.0 (4.6 - 8.0) 12/11/17 12:15 Ur Specific [place] 1.015 (1.005-1.030) 12/11/17 12:15 Urine Protein NEGATIVE mg/dL (NEGATIVE) 12/11/17 12:15 Urine Glucose (UA) NEGATIVE mg/dL (NEGATIVE) 12/11/17 12:15 Urine Ketones NEGATIVE mg/dL (NEGATIVE) 12/11/17 12:15 Urine Blood NEGATIVE (NEGATIVE) 12/11/17 12:15 Urine Nitrate NEGATIVE (NEGATIVE) 12/11/17 12:15 Urine Bilirubin NEGATIVE (NEGATIVE) 12/11/17 12:15 Urine Urobilinogen 1.0 E.U./dL (0.2 - 1.0) 12/11/17 12:15 Ur Leukocyte Esterase NEGATIVE (NEGATIVE) 12/11/17 12:15 Urine RBC 0-2 /hpf (0-5) H 12/11/17 12:15 Urine WBC 0-2 /hpf (0-5) 12/11/17 12:15 Ur Epithelial Cells FEW /lpf (FEW) 12/11/17 12:15 Urine Bacteria OCCASIONAL /hpf (NONE SEEN) 12/11/17 12:15 Salicylates < 25.0 mg/L (30.0-100.0) L 12/11/17 12:30 Acetaminophen < 10.0 ug/mL (10.0-30.0) L 12/11/17 12:30 Ethyl Alcohol < 10 mg/dL (0-10) 12/11/17 12:30 RPR NONREACTIVE (NONREACTIVE) 12/11/17 12:30 - Physical Exam Vitals and I&O: Vital Signs Temp 98.1 F 12/28/17 06:44 Pulse 68 12/28/17 08:12 Resp 20 12/28/17 06:44 BP 133/68 12/28/17 08:12 Pulse Ox 97 12/28/17 06:44 Intake & Output 12/27/17 12/28/17 12/28/17 18:59 06:59 18:59 Intake Total 1500 120 Balance 1500 120 Intake: Oral 1500 120 Other: # Voids 4 3 # Bowel Movements 1 Stool Characteristics Formed Active Medications: Current Medications Acetaminophen (Tylenol) 650 mg PO Q4HR PRN PRN Reason: Mild Pain / Temp above 100 Stop: 02/09/18 16:57 Last Admin: 12/23/17 20:30 Dose: 650 mg Al Hydrox/Mg Hydrox/Simethicone (Maalox) 30 ml PO Q4HR PRN PRN Reason: GI DISTRESS Stop: 02/09/18 16:57 Albuterol/Ipratropium (Duoneb Neb) 3 ml HHN Q6HR PRN PRN Reason: WHEEZING/SOB Stop: 02/09/18 20:39 Amlodipine Besylate (Norvasc) 5 mg PO DAILY MOSHE Stop: 02/10/18 08:59 Last Admin: 12/28/17 08:11 Dose: 5 mg Aspirin (Aspirin) 325 mg PO DAILY MOSHE Stop: 02/10/18 08:59 Last Admin: 12/28/17 08:08 Dose: 325 mg Carvedilol (Coreg) 3.125 mg PO BID MOSHE Stop: 02/10/18 08:59 Last Admin: 12/28/17 08:09 Dose: 3.125 mg Citalopram Hydrobromide (Celexa) 20 mg PO DAILY MOSHE PRN Reason: Protocol Stop: 02/18/18 19:12 Last Admin: 12/28/17 08:12 Dose: 20 mg Furosemide (Lasix) 20 mg PO DAILY MOSEH Stop: 02/10/18 08:59 Last Admin: 12/28/17 08:12 Dose: 20 mg Gabapentin (Neurontin) 300 mg PO BID MOSHE Stop: 02/10/18 08:59 Last Admin: 12/28/17 08:12 Dose: 300 mg Lisinopril (Zestril) 20 mg PO DAILY MOSHE Stop: 02/10/18 08:59 Last Admin: 12/28/17 08:12 Dose: 20 mg Lorazepam (Ativan) 0.5 mg PO Q4HR PRN; Protocol PRN Reason: Agitation Stop: 02/17/18 17:12 Last Admin: 12/27/17 16:53 Dose: 0.5 mg Magnesium Oxide (Mag-Oxide) 400 mg PO DAILY MOSHE Stop: 02/10/18 08:59 Last Admin: 12/28/17 08:08 Dose: 400 mg Metformin HCl (Glucophage) 1,000 mg PO BIDWM MOSHE Stop: 02/10/18 07:59 Last Admin: 12/28/17 08:08 Dose: 1,000 mg Multivitamins/Vitamin C (Theragran) 1 tab PO DAILY MOSHE Stop: 02/10/18 08:59 Last Admin: 12/28/17 08:11 Dose: 1 tab Nitroglycerin (Nitrostat) 0.4 mg SL Q5MIN PRN PRN Reason: Chest Pain Stop: 02/09/18 20:39 Simvastatin (Zocor) 20 mg PO HS MOSHE PRN Reason: Protocol Stop: 02/09/18 20:59 Last Admin: 12/27/17 20:59 Dose: 20 mg Tamsulosin HCl (Flomax) 0.4 mg PO HS MOSHE Stop: 02/09/18 20:59 Last Admin: 12/27/17 20:59 Dose: 0.4 mg Zolpidem Tartrate (Ambien) 5 mg PO HS PRN PRN Reason: Insomnia Stop: 02/09/18 16:57 Last Admin: 12/27/17 20:59 Dose: 5 mg General: Alert, Other (Confused) HEENT: Atraumatic Neck: Supple Cardiovascular: Regular rate Abdomen: Bowel sounds, Soft Extremities: Other (No edema) Neurological: Other (Unstable gait) Skin: Other (warm and dry) Psych/Mental Status: Other (Confused, not oriented) Assessment/Plan - Problem List Patient Problems: All Active Problems AGITATION AND AGGRESSION (Acute) - Assessment Assessment: Current Active Problems Problem Status Onset AGITATION AND AGGRESSION Acute Patient is awake, alert, confused. DX: Incresed in agitation, HTN, Schizophrenia. - Plan Plan: Patient is follow by Psychiatry, Continue with SNF meds. Will continue to monitor. Nutritional Asmnt/Malnutr-PDOC - Dietary Evaluation Malnutrition Findings (Please click <Entered> for more info): Nutritional Asmnt/Malnutrition Start: 12/16/17 14: 18 Text: Status: Complete Freq: Document 12/16/17 14:18 HENG (Rec: 12/16/17 14:26 [email or web address]) Nutritional Asmnt/Malnutrition Patient General Information Nutritional Screening Moderate Risk Diagnosis psychosis Pertinent Medical Hx/Surgical Hx CAD, HTN, psychosis, schizophrenia, dyslipidemia Subjective Information Per EMR, PO intake 100% of meals. Current Diet Order/ Nutrition Support DARBY, double portion Pertinent Medications laisx, mag-oxide, glucophage, theragran Pertinent Labs 4/2 glucose 115, POC 107-115, A1c 6.0 Nutritional Hx/Data Height 1.7 m Height (Calculated Centimeters) 170.2 Current Weight (lbs) 90.718 kg Weight (Calculated Kilograms) 90.7 Weight (Calculated Grams) 29894.5 [place] Body Weight 148 Body Mass Index (BMI) 31.3 Weight Status Obese GI Symptoms GI Symptoms None Last BM 4/6 Difficult in: None Skin Integrity/Comment: bruises Current %PO Good (75-100%) Estimated Nutritional Goals BEE in Kcals: Adj wt of IBW Calories/Kcals/Kg 25-30 Kcals Calculated 4364-7133 Protein: Adj wt of IBW Protein g/k Protein Calculated 73 Fluid: ml 1825-2190ml (1ml/kcal) Intervention/Recommendation Comments 1. Continue with current diet as ordered. Continue monitor blood sugar. 2. Monitor PO intake, wt, labs and skin integrity 3. F/U as low risk in 7d ays, 12/23 Expected Outcomes/Goals Expected Outcomes/Goals 1. PO intake to meet at least 75% of nutritional needs. 2. Wt stability, skin to remain intact, labs to approach WNL.
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
[2017-12-29] MEDS: Multivitamin Tab PO SCH (08:23)
--- NOTE | 2017-12-29 08:33 | General Progress Note ---
Subjective - Review of Systems Service Date: 12/29/17 Subjective: I am ok. Objective - Results Result Diagrams: 12/11/17 12:30 12/11/17 12:30 Recent Labs: Laboratory Last Values WBC 9.5 Th/cmm (4.8-10.8) 12/11/17 12:30 RBC 5.29 Mil/cmm (3.80-5.80) 12/11/17 12:30 Hgb 15.5 gm/dL (12-16) 12/11/17 12:30 Hct 46.7 % (41.0-60) 12/11/17 12:30 MCV 88.4 fl (80-99) 12/11/17 12:30 MCH 29.4 pg (27.0-31.0) 12/11/17 12:30 MCHC Differential 33.2 pg (28.0-36.0) 12/11/17 12:30 RDW 15.9 % (11.5-20.0) 12/11/17 12:30 Plt Count 243 Th/cmm (150-400) 12/11/17 12:30 MPV 7.6 fl 12/11/17 12:30 Neutrophils % 67.0 % (40.0-80.0) 12/11/17 12:30 Lymphocytes % 21.5 % (20.0-50.0) 12/11/17 12:30 Monocytes % 5.8 % (2.0-10.0) 12/11/17 12:30 Eosinophils % 3.9 % (0.0-5.0) 12/11/17 12:30 Basophils % 1.8 % (0.0-2.0) 12/11/17 12:30 Sodium 138 mEq/L (136-145) 12/11/17 12:30 Potassium 3.7 mEq/L (3.5-5.1) 12/11/17 12:30 Chloride 105 mEq/L (98-107) 12/11/17 12:30 Carbon Dioxide 22.7 mEq/L (21.0-31.0) 12/11/17 12:30 Anion Gap 14.0 (7.0-16.0) 12/11/17 12:30 BUN 14 mg/dL (7-25) 12/11/17 12:30 Creatinine 0.7 mg/dL (0.7-1.3) 12/11/17 12:30 Est GFR ( Amer) > 60.0 ml/min (>90) 12/11/17 12:30 Est GFR (Non-Af Amer) > 60.0 ml/min 12/11/17 12:30 BUN/Creatinine Ratio 20.0 12/11/17 12:30 Glucose 115 mg/dL (70-105) H 12/11/17 12:30 POC Glucose 115 MG/DL (70 - 105) H 12/15/17 20:11 Hemoglobin A1c % 6.0 % (4.0-6.0) 12/11/17 12:30 Calcium 9.3 mg/dL (8.6-10.3) 12/11/17 12:30 Total Bilirubin 0.6 mg/dL (0.3-1.0) 12/11/17 12:30 AST 16 U/L (13-39) 12/11/17 12:30 ALT 15 U/L (7-52) 12/11/17 12:30 Alkaline Phosphatase 86 U/L (34-104) 12/11/17 12:30 Total Protein 7.0 gm/dL (6.0-8.3) 12/11/17 12:30 Albumin 4.3 gm/dL (4.2-5.5) 12/11/17 12:30 Globulin 2.7 gm/dL 12/11/17 12:30 Albumin/Globulin Ratio 1.6 (1.0-1.8) 12/11/17 12:30 Triglycerides 106 mg/dL (<150) 12/11/17 12:30 Cholesterol 123 mg/dL (<200) 12/11/17 12:30 LDL Cholesterol Direct 96 mg/dL (75-193) 12/11/17 12:30 HDL Cholesterol 26 mg/dL (23-92) 12/11/17 12:30 TSH 1.06 uIU/ml (0.34-5.60) 12/11/17 12:30 Urine Source CLEAN C 12/11/17 12:15 Urine Color YELLOW 12/11/17 12:15 Urine Clarity CLEAR (CLEAR) 12/11/17 12:15 Urine pH 7.0 (4.6 - 8.0) 12/11/17 12:15 Ur Specific [place] 1.015 (1.005-1.030) 12/11/17 12:15 Urine Protein NEGATIVE mg/dL (NEGATIVE) 12/11/17 12:15 Urine Glucose (UA) NEGATIVE mg/dL (NEGATIVE) 12/11/17 12:15 Urine Ketones NEGATIVE mg/dL (NEGATIVE) 12/11/17 12:15 Urine Blood NEGATIVE (NEGATIVE) 12/11/17 12:15 Urine Nitrate NEGATIVE (NEGATIVE) 12/11/17 12:15 Urine Bilirubin NEGATIVE (NEGATIVE) 12/11/17 12:15 Urine Urobilinogen 1.0 E.U./dL (0.2 - 1.0) 12/11/17 12:15 Ur Leukocyte Esterase NEGATIVE (NEGATIVE) 12/11/17 12:15 Urine RBC 0-2 /hpf (0-5) H 12/11/17 12:15 Urine WBC 0-2 /hpf (0-5) 12/11/17 12:15 Ur Epithelial Cells FEW /lpf (FEW) 12/11/17 12:15 Urine Bacteria OCCASIONAL /hpf (NONE SEEN) 12/11/17 12:15 Salicylates < 25.0 mg/L (30.0-100.0) L 12/11/17 12:30 Acetaminophen < 10.0 ug/mL (10.0-30.0) L 12/11/17 12:30 Ethyl Alcohol < 10 mg/dL (0-10) 12/11/17 12:30 RPR NONREACTIVE (NONREACTIVE) 12/11/17 12:30 - Physical Exam Vitals and I&O: Vital Signs Temp 98.2 F 12/29/17 06:44 Pulse 69 12/29/17 08:29 Resp 20 12/29/17 06:44 BP 132/74 12/29/17 08:29 Pulse Ox 98 12/29/17 06:44 Intake & Output 12/28/17 12/29/17 12/29/17 18:59 06:59 18:59 Intake Total 1500 420 Balance 1500 420 Intake: Oral 1500 420 Other: # Voids 3 1 # Bowel Movements 1 Active Medications: Current Medications Acetaminophen (Tylenol) 650 mg PO Q4HR PRN PRN Reason: Mild Pain / Temp above 100 Stop: 02/09/18 16:57 Last Admin: 12/23/17 20:30 Dose: 650 mg Al Hydrox/Mg Hydrox/Simethicone (Maalox) 30 ml PO Q4HR PRN PRN Reason: GI DISTRESS Stop: 02/09/18 16:57 Albuterol/Ipratropium (Duoneb Neb) 3 ml HHN Q6HR PRN PRN Reason: WHEEZING/SOB Stop: 02/09/18 20:39 Amlodipine Besylate (Norvasc) 5 mg PO DAILY MOSHE Stop: 02/10/18 08:59 Last Admin: 12/29/17 08:28 Dose: 5 mg Aspirin (Aspirin) 325 mg PO DAILY MOSHE Stop: 02/10/18 08:59 Last Admin: 12/29/17 08:23 Dose: 325 mg Carvedilol (Coreg) 3.125 mg PO BID MOSHE Stop: 02/10/18 08:59 Last Admin: 12/29/17 08:24 Dose: 3.125 mg Citalopram Hydrobromide (Celexa) 20 mg PO DAILY MOSHE PRN Reason: Protocol Stop: 02/18/18 19:12 Last Admin: 12/29/17 08:23 Dose: 20 mg Furosemide (Lasix) 20 mg PO DAILY MOSHE Stop: 02/10/18 08:59 Last Admin: 12/29/17 08:23 Dose: 20 mg Gabapentin (Neurontin) 300 mg PO BID MOSHE Stop: 02/10/18 08:59 Last Admin: 12/29/17 08:23 Dose: 300 mg Lisinopril (Zestril) 20 mg PO DAILY MOSHE Stop: 02/10/18 08:59 Last Admin: 12/29/17 08:29 Dose: 20 mg Lorazepam (Ativan) 0.5 mg PO Q4HR PRN; Protocol PRN Reason: Agitation Stop: 02/17/18 17:12 Last Admin: 12/28/17 17:11 Dose: 0.5 mg Magnesium Oxide (Mag-Oxide) 400 mg PO DAILY MOSHE Stop: 02/10/18 08:59 Last Admin: 12/29/17 08:23 Dose: 400 mg Metformin HCl (Glucophage) 1,000 mg PO BIDWM MOSHE Stop: 02/10/18 07:59 Last Admin: 12/29/17 08:23 Dose: 1,000 mg Multivitamins/Vitamin C (Theragran) 1 tab PO DAILY MOSHE Stop: 02/10/18 08:59 Last Admin: 12/29/17 08:23 Dose: 1 tab Nitroglycerin (Nitrostat) 0.4 mg SL Q5MIN PRN PRN Reason: Chest Pain Stop: 02/09/18 20:39 Simvastatin (Zocor) 20 mg PO HS MOSHE PRN Reason: Protocol Stop: 02/09/18 20:59 Last Admin: 12/28/17 20:36 Dose: 20 mg Tamsulosin HCl (Flomax) 0.4 mg PO HS MOSHE Stop: 02/09/18 20:59 Last Admin: 12/28/17 20:37 Dose: 0.4 mg Zolpidem Tartrate (Ambien) 5 mg PO HS PRN PRN Reason: Insomnia Stop: 02/09/18 16:57 Last Admin: 12/28/17 20:36 Dose: 5 mg General: Alert, Other (Confused) HEENT: Atraumatic Neck: Supple Cardiovascular: Regular rate Abdomen: Bowel sounds, Soft Extremities: Other (No edema) Neurological: Other (Unstable gait) Skin: Other (warm and dry) Psych/Mental Status: Other (Confused, not oriented) Assessment/Plan - Problem List Patient Problems: All Active Problems AGITATION AND AGGRESSION (Acute) - Assessment Assessment: Current Active Problems Problem Status Onset AGITATION AND AGGRESSION Acute Patient is awake, alert, confused. DX: Incresed in agitation, HTN, Schizophrenia. - Plan Plan: Patient is follow by Psychiatry, Continue with SNF meds. Will continue to monitor. Nutritional Asmnt/Malnutr-PDOC - Dietary Evaluation Malnutrition Findings (Please click <Entered> for more info): Nutritional Asmnt/Malnutrition Start: 12/16/17 14: 18 Text: Status: Complete Freq: Document 12/16/17 14:18 LCHENG (Rec: 12/16/17 14:26 [email or web address]) Nutritional Asmnt/Malnutrition Patient General Information Nutritional Screening Moderate Risk Diagnosis psychosis Pertinent Medical Hx/Surgical Hx CAD, HTN, psychosis, schizophrenia, dyslipidemia Subjective Information Per EMR, PO intake 100% of meals. Current Diet Order/ Nutrition Support DARBY, double portion Pertinent Medications laisx, mag-oxide, glucophage, theragran Pertinent Labs 4/2 glucose 115, POC 107-115, A1c 6.0 Nutritional Hx/Data Height 1.7 m Height (Calculated Centimeters) 170.2 Current Weight (lbs) 90.718 kg Weight (Calculated Kilograms) 90.7 Weight (Calculated Grams) 68434.5 [place] Body Weight 148 Body Mass Index (BMI) 31.3 Weight Status Obese GI Symptoms GI Symptoms None Last BM 4/6 Difficult in: None Skin Integrity/Comment: bruises Current %PO Good (75-100%) Estimated Nutritional Goals BEE in Kcals: Adj wt of IBW Calories/Kcals/Kg 25-30 Kcals Calculated 1315-6099 Protein: Adj wt of IBW Protein g/k Protein Calculated 73 Fluid: ml 1825-2190ml (1ml/kcal) Intervention/Recommendation Comments 1. Continue with current diet as ordered. Continue monitor blood sugar. 2. Monitor PO intake, wt, labs and skin integrity 3. F/U as low risk in 7d ays, 12/23 Expected Outcomes/Goals Expected Outcomes/Goals 1. PO intake to meet at least 75% of nutritional needs. 2. Wt stability, skin to remain intact, labs to approach WNL.
--- NOTE | 2017-12-30 02:53 | Progress Notes ---
DATE: 12/29/2017 PSYCHIATRIC PROGRESS NOTE SUBJECTIVE: Staff was spoken to. The patient is interviewed. Mood is noted to be irritable. Affect is constricted. The patient's coping skills are noted to be poor. The patient is stating that he is getting frustrated. He was told that he is going to be leaving as of yesterday, but it has not happened and the staff are reporting that the place has accepted the patient, but so far, there is no bed available and hence he is waiting. The patient is currently on 20 mg of the citalopram. PLAN: To continue the patient with the supportive therapy. I encouraged the patient to verbalize the concerns. The patient is going to be closely monitored and discharged when the placement is available. JOB# [id number]
[2017-12-30] MEDS: Multivitamin Tab PO SCH (08:33)
--- NOTE | 2017-12-30 10:19 | General Progress Note ---
Subjective - Review of Systems Service Date: 12/30/17 Subjective: I am ok. Objective - Results Result Diagrams: 12/11/17 12:30 12/11/17 12:30 Recent Labs: Laboratory Last Values WBC 9.5 Th/cmm (4.8-10.8) 12/11/17 12:30 RBC 5.29 Mil/cmm (3.80-5.80) 12/11/17 12:30 Hgb 15.5 gm/dL (12-16) 12/11/17 12:30 Hct 46.7 % (41.0-60) 12/11/17 12:30 MCV 88.4 fl (80-99) 12/11/17 12:30 MCH 29.4 pg (27.0-31.0) 12/11/17 12:30 MCHC Differential 33.2 pg (28.0-36.0) 12/11/17 12:30 RDW 15.9 % (11.5-20.0) 12/11/17 12:30 Plt Count 243 Th/cmm (150-400) 12/11/17 12:30 MPV 7.6 fl 12/11/17 12:30 Neutrophils % 67.0 % (40.0-80.0) 12/11/17 12:30 Lymphocytes % 21.5 % (20.0-50.0) 12/11/17 12:30 Monocytes % 5.8 % (2.0-10.0) 12/11/17 12:30 Eosinophils % 3.9 % (0.0-5.0) 12/11/17 12:30 Basophils % 1.8 % (0.0-2.0) 12/11/17 12:30 Sodium 138 mEq/L (136-145) 12/11/17 12:30 Potassium 3.7 mEq/L (3.5-5.1) 12/11/17 12:30 Chloride 105 mEq/L (98-107) 12/11/17 12:30 Carbon Dioxide 22.7 mEq/L (21.0-31.0) 12/11/17 12:30 Anion Gap 14.0 (7.0-16.0) 12/11/17 12:30 BUN 14 mg/dL (7-25) 12/11/17 12:30 Creatinine 0.7 mg/dL (0.7-1.3) 12/11/17 12:30 Est GFR ( Amer) > 60.0 ml/min (>90) 12/11/17 12:30 Est GFR (Non-Af Amer) > 60.0 ml/min 12/11/17 12:30 BUN/Creatinine Ratio 20.0 12/11/17 12:30 Glucose 115 mg/dL (70-105) H 12/11/17 12:30 POC Glucose 115 MG/DL (70 - 105) H 12/15/17 20:11 Hemoglobin A1c % 6.0 % (4.0-6.0) 12/11/17 12:30 Calcium 9.3 mg/dL (8.6-10.3) 12/11/17 12:30 Total Bilirubin 0.6 mg/dL (0.3-1.0) 12/11/17 12:30 AST 16 U/L (13-39) 12/11/17 12:30 ALT 15 U/L (7-52) 12/11/17 12:30 Alkaline Phosphatase 86 U/L (34-104) 12/11/17 12:30 Total Protein 7.0 gm/dL (6.0-8.3) 12/11/17 12:30 Albumin 4.3 gm/dL (4.2-5.5) 12/11/17 12:30 Globulin 2.7 gm/dL 12/11/17 12:30 Albumin/Globulin Ratio 1.6 (1.0-1.8) 12/11/17 12:30 Triglycerides 106 mg/dL (<150) 12/11/17 12:30 Cholesterol 123 mg/dL (<200) 12/11/17 12:30 LDL Cholesterol Direct 96 mg/dL (75-193) 12/11/17 12:30 HDL Cholesterol 26 mg/dL (23-92) 12/11/17 12:30 TSH 1.06 uIU/ml (0.34-5.60) 12/11/17 12:30 Urine Source CLEAN C 12/11/17 12:15 Urine Color YELLOW 12/11/17 12:15 Urine Clarity CLEAR (CLEAR) 12/11/17 12:15 Urine pH 7.0 (4.6 - 8.0) 12/11/17 12:15 Ur Specific [place] 1.015 (1.005-1.030) 12/11/17 12:15 Urine Protein NEGATIVE mg/dL (NEGATIVE) 12/11/17 12:15 Urine Glucose (UA) NEGATIVE mg/dL (NEGATIVE) 12/11/17 12:15 Urine Ketones NEGATIVE mg/dL (NEGATIVE) 12/11/17 12:15 Urine Blood NEGATIVE (NEGATIVE) 12/11/17 12:15 Urine Nitrate NEGATIVE (NEGATIVE) 12/11/17 12:15 Urine Bilirubin NEGATIVE (NEGATIVE) 12/11/17 12:15 Urine Urobilinogen 1.0 E.U./dL (0.2 - 1.0) 12/11/17 12:15 Ur Leukocyte Esterase NEGATIVE (NEGATIVE) 12/11/17 12:15 Urine RBC 0-2 /hpf (0-5) H 12/11/17 12:15 Urine WBC 0-2 /hpf (0-5) 12/11/17 12:15 Ur Epithelial Cells FEW /lpf (FEW) 12/11/17 12:15 Urine Bacteria OCCASIONAL /hpf (NONE SEEN) 12/11/17 12:15 Salicylates < 25.0 mg/L (30.0-100.0) L 12/11/17 12:30 Acetaminophen < 10.0 ug/mL (10.0-30.0) L 12/11/17 12:30 Ethyl Alcohol < 10 mg/dL (0-10) 12/11/17 12:30 RPR NONREACTIVE (NONREACTIVE) 12/11/17 12:30 - Physical Exam Vitals and I&O: Vital Signs Temp 98.0 F 12/29/17 14:00 Pulse 106 12/30/17 08:32 Resp 20 12/29/17 14:00 BP 121/74 12/30/17 08:33 Pulse Ox 98 12/29/17 14:00 Intake & Output 12/29/17 12/30/17 12/30/17 18:59 06:59 18:59 Intake Total 1000 Balance 1000 Intake: Oral 1000 Other: # Voids 4 # Bowel Movements 1 Active Medications: Current Medications Acetaminophen (Tylenol) 650 mg PO Q4HR PRN PRN Reason: Mild Pain / Temp above 100 Stop: 02/09/18 16:57 Last Admin: 12/29/17 20:29 Dose: 650 mg Al Hydrox/Mg Hydrox/Simethicone (Maalox) 30 ml PO Q4HR PRN PRN Reason: GI DISTRESS Stop: 02/09/18 16:57 Albuterol/Ipratropium (Duoneb Neb) 3 ml HHN Q6HR PRN PRN Reason: WHEEZING/SOB Stop: 02/09/18 20:39 Amlodipine Besylate (Norvasc) 5 mg PO DAILY MOSHE Stop: 02/10/18 08:59 Last Admin: 12/30/17 08:32 Dose: 5 mg Aspirin (Aspirin) 325 mg PO DAILY MOSHE Stop: 02/10/18 08:59 Last Admin: 12/30/17 08:33 Dose: 325 mg Carvedilol (Coreg) 3.125 mg PO BID MOSHE Stop: 02/10/18 08:59 Last Admin: 12/30/17 08:32 Dose: 3.125 mg Citalopram Hydrobromide (Celexa) 20 mg PO DAILY MOSHE PRN Reason: Protocol Stop: 02/18/18 19:12 Last Admin: 12/30/17 08:33 Dose: 20 mg Furosemide (Lasix) 20 mg PO DAILY MOSHE Stop: 02/10/18 08:59 Last Admin: 12/30/17 08:33 Dose: 20 mg Gabapentin (Neurontin) 300 mg PO BID MOSHE Stop: 02/10/18 08:59 Last Admin: 12/30/17 08:33 Dose: 300 mg Lisinopril (Zestril) 20 mg PO DAILY MOSHE Stop: 02/10/18 08:59 Last Admin: 12/30/17 08:32 Dose: 20 mg Lorazepam (Ativan) 0.5 mg PO Q4HR PRN; Protocol PRN Reason: Agitation Stop: 02/17/18 17:12 Last Admin: 12/30/17 08:46 Dose: 0.5 mg Magnesium Oxide (Mag-Oxide) 400 mg PO DAILY MOSHE Stop: 02/10/18 08:59 Last Admin: 12/30/17 08:32 Dose: 400 mg Metformin HCl (Glucophage) 1,000 mg PO BIDWM MOSHE Stop: 02/10/18 07:59 Last Admin: 12/30/17 07:40 Dose: 1,000 mg Multivitamins/Vitamin C (Theragran) 1 tab PO DAILY MOSHE Stop: 02/10/18 08:59 Last Admin: 12/30/17 08:33 Dose: 1 tab Nitroglycerin (Nitrostat) 0.4 mg SL Q5MIN PRN PRN Reason: Chest Pain Stop: 02/09/18 20:39 Simvastatin (Zocor) 20 mg PO HS MOSHE PRN Reason: Protocol Stop: 02/09/18 20:59 Last Admin: 12/29/17 20:28 Dose: 20 mg Tamsulosin HCl (Flomax) 0.4 mg PO HS MOSHE Stop: 02/09/18 20:59 Last Admin: 12/29/17 20:28 Dose: 0.4 mg Zolpidem Tartrate (Ambien) 5 mg PO HS PRN PRN Reason: Insomnia Stop: 02/09/18 16:57 Last Admin: 12/29/17 20:28 Dose: 5 mg General: Alert, Other (Confused) HEENT: Atraumatic Neck: Supple Cardiovascular: Regular rate Abdomen: Bowel sounds, Soft Extremities: Other (No edema) Neurological: Other (Unstable gait) Skin: Other (warm and dry) Psych/Mental Status: Other (Confused, not oriented) Assessment/Plan - Problem List Patient Problems: All Active Problems AGITATION AND AGGRESSION (Acute) - Assessment Assessment: Current Active Problems Problem Status Onset AGITATION AND AGGRESSION Acute Patient is awake, alert, confused. DX: Incresed in agitation, HTN, Schizophrenia. - Plan Plan: Patient is follow by Psychiatry, Continue with SNF meds. Will continue to monitor. Nutritional Asmnt/Malnutr-PDOC - Dietary Evaluation Malnutrition Findings (Please click <Entered> for more info): Nutritional Asmnt/Malnutrition Start: 12/16/17 14: 18 Text: Status: Complete Freq: Document 12/16/17 14:18 LCHENG (Rec: 12/16/17 14:26 [email or web address] [email or web address]) Nutritional Asmnt/Malnutrition Patient General Information Nutritional Screening Moderate Risk Diagnosis psychosis Pertinent Medical Hx/Surgical Hx CAD, HTN, psychosis, schizophrenia, dyslipidemia Subjective Information Per EMR, PO intake 100% of meals. Current Diet Order/ Nutrition Support DARBY, double portion Pertinent Medications laisx, mag-oxide, glucophage, theragran Pertinent Labs 4/2 glucose 115, POC 107-115, A1c 6.0 Nutritional Hx/Data Height 1.7 m Height (Calculated Centimeters) 170.2 Current Weight (lbs) 90.718 kg Weight (Calculated Kilograms) 90.7 Weight (Calculated Grams) 01054.5 [place] Body Weight 148 Body Mass Index (BMI) 31.3 Weight Status Obese GI Symptoms GI Symptoms None Last BM 4/6 Difficult in: None Skin Integrity/Comment: bruises Current %PO Good (75-100%) Estimated Nutritional Goals BEE in Kcals: Adj wt of IBW Calories/Kcals/Kg 25-30 Kcals Calculated 3087-3910 Protein: Adj wt of IBW Protein g/k Protein Calculated 73 Fluid: ml 1825-2190ml (1ml/kcal) Intervention/Recommendation Comments 1. Continue with current diet as ordered. Continue monitor blood sugar. 2. Monitor PO intake, wt, labs and skin integrity 3. F/U as low risk in 7d ays, 12/23 Expected Outcomes/Goals Expected Outcomes/Goals 1. PO intake to meet at least 75% of nutritional needs. 2. Wt stability, skin to remain intact, labs to approach WNL.
--- NOTE | 2017-12-30 16:23 | Progress Notes ---
DATE: 12/30/2017 SUBJECTIVE: Staff was spoken to. The patient is interviewed. Mood is noted to be irritable. Affect is constricted. The patient is demanding that he should be discharged to his home. He has a place to go in [place]. Insight and judgment are noted to be still impaired. Impulse control is noted to be limited and the pillowcase sewer have been trying to look for placement for this patient so far no placement is available. PLAN: To continue the patient with the supportive therapy. I encouraged the patient to verbalize the concerns rather than to act out. JOB# [id number]
[2017-12-31] MEDS: Multivitamin Tab PO SCH (09:38)
--- NOTE | 2017-12-31 11:11 | General Progress Note ---
Subjective - Review of Systems Service Date: 12/31/17 Subjective: I am ok. Objective - Results Result Diagrams: 12/11/17 12:30 12/11/17 12:30 Recent Labs: Laboratory Last Values WBC 9.5 Th/cmm (4.8-10.8) 12/11/17 12:30 RBC 5.29 Mil/cmm (3.80-5.80) 12/11/17 12:30 Hgb 15.5 gm/dL (12-16) 12/11/17 12:30 Hct 46.7 % (41.0-60) 12/11/17 12:30 MCV 88.4 fl (80-99) 12/11/17 12:30 MCH 29.4 pg (27.0-31.0) 12/11/17 12:30 MCHC Differential 33.2 pg (28.0-36.0) 12/11/17 12:30 RDW 15.9 % (11.5-20.0) 12/11/17 12:30 Plt Count 243 Th/cmm (150-400) 12/11/17 12:30 MPV 7.6 fl 12/11/17 12:30 Neutrophils % 67.0 % (40.0-80.0) 12/11/17 12:30 Lymphocytes % 21.5 % (20.0-50.0) 12/11/17 12:30 Monocytes % 5.8 % (2.0-10.0) 12/11/17 12:30 Eosinophils % 3.9 % (0.0-5.0) 12/11/17 12:30 Basophils % 1.8 % (0.0-2.0) 12/11/17 12:30 Sodium 138 mEq/L (136-145) 12/11/17 12:30 Potassium 3.7 mEq/L (3.5-5.1) 12/11/17 12:30 Chloride 105 mEq/L (98-107) 12/11/17 12:30 Carbon Dioxide 22.7 mEq/L (21.0-31.0) 12/11/17 12:30 Anion Gap 14.0 (7.0-16.0) 12/11/17 12:30 BUN 14 mg/dL (7-25) 12/11/17 12:30 Creatinine 0.7 mg/dL (0.7-1.3) 12/11/17 12:30 Est GFR ( Amer) > 60.0 ml/min (>90) 12/11/17 12:30 Est GFR (Non-Af Amer) > 60.0 ml/min 12/11/17 12:30 BUN/Creatinine Ratio 20.0 12/11/17 12:30 Glucose 115 mg/dL (70-105) H 12/11/17 12:30 POC Glucose 115 MG/DL (70 - 105) H 12/15/17 20:11 Hemoglobin A1c % 6.0 % (4.0-6.0) 12/11/17 12:30 Calcium 9.3 mg/dL (8.6-10.3) 12/11/17 12:30 Total Bilirubin 0.6 mg/dL (0.3-1.0) 12/11/17 12:30 AST 16 U/L (13-39) 12/11/17 12:30 ALT 15 U/L (7-52) 12/11/17 12:30 Alkaline Phosphatase 86 U/L (34-104) 12/11/17 12:30 Total Protein 7.0 gm/dL (6.0-8.3) 12/11/17 12:30 Albumin 4.3 gm/dL (4.2-5.5) 12/11/17 12:30 Globulin 2.7 gm/dL 12/11/17 12:30 Albumin/Globulin Ratio 1.6 (1.0-1.8) 12/11/17 12:30 Triglycerides 106 mg/dL (<150) 12/11/17 12:30 Cholesterol 123 mg/dL (<200) 12/11/17 12:30 LDL Cholesterol Direct 96 mg/dL (75-193) 12/11/17 12:30 HDL Cholesterol 26 mg/dL (23-92) 12/11/17 12:30 TSH 1.06 uIU/ml (0.34-5.60) 12/11/17 12:30 Urine Source CLEAN C 12/11/17 12:15 Urine Color YELLOW 12/11/17 12:15 Urine Clarity CLEAR (CLEAR) 12/11/17 12:15 Urine pH 7.0 (4.6 - 8.0) 12/11/17 12:15 Ur Specific [place] 1.015 (1.005-1.030) 12/11/17 12:15 Urine Protein NEGATIVE mg/dL (NEGATIVE) 12/11/17 12:15 Urine Glucose (UA) NEGATIVE mg/dL (NEGATIVE) 12/11/17 12:15 Urine Ketones NEGATIVE mg/dL (NEGATIVE) 12/11/17 12:15 Urine Blood NEGATIVE (NEGATIVE) 12/11/17 12:15 Urine Nitrate NEGATIVE (NEGATIVE) 12/11/17 12:15 Urine Bilirubin NEGATIVE (NEGATIVE) 12/11/17 12:15 Urine Urobilinogen 1.0 E.U./dL (0.2 - 1.0) 12/11/17 12:15 Ur Leukocyte Esterase NEGATIVE (NEGATIVE) 12/11/17 12:15 Urine RBC 0-2 /hpf (0-5) H 12/11/17 12:15 Urine WBC 0-2 /hpf (0-5) 12/11/17 12:15 Ur Epithelial Cells FEW /lpf (FEW) 12/11/17 12:15 Urine Bacteria OCCASIONAL /hpf (NONE SEEN) 12/11/17 12:15 Salicylates < 25.0 mg/L (30.0-100.0) L 12/11/17 12:30 Acetaminophen < 10.0 ug/mL (10.0-30.0) L 12/11/17 12:30 Ethyl Alcohol < 10 mg/dL (0-10) 12/11/17 12:30 RPR NONREACTIVE (NONREACTIVE) 12/11/17 12:30 - Physical Exam Vitals and I&O: Vital Signs Temp 97.8 F 12/31/17 06:36 Pulse 72 12/31/17 09:40 Resp 20 12/31/17 06:36 BP 115/77 12/31/17 09:41 Pulse Ox 98 12/31/17 06:36 Intake & Output 12/30/17 12/31/17 12/31/17 18:59 06:59 18:59 Intake Total 1100 120 Balance 1100 120 Intake: Oral 1100 120 Other: # Voids 3 3 # Bowel Movements 0 Active Medications: Current Medications Acetaminophen (Tylenol) 650 mg PO Q4HR PRN PRN Reason: Mild Pain / Temp above 100 Stop: 02/09/18 16:57 Last Admin: 12/30/17 20:38 Dose: 650 mg Al Hydrox/Mg Hydrox/Simethicone (Maalox) 30 ml PO Q4HR PRN PRN Reason: GI DISTRESS Stop: 02/09/18 16:57 Albuterol/Ipratropium (Duoneb Neb) 3 ml HHN Q6HR PRN PRN Reason: WHEEZING/SOB Stop: 02/09/18 20:39 Amlodipine Besylate (Norvasc) 5 mg PO DAILY MOSHE Stop: 02/10/18 08:59 Last Admin: 12/31/17 09:40 Dose: 5 mg Aspirin (Aspirin) 325 mg PO DAILY MOSHE Stop: 02/10/18 08:59 Last Admin: 12/31/17 09:38 Dose: 325 mg Carvedilol (Coreg) 3.125 mg PO BID MOSHE Stop: 02/10/18 08:59 Last Admin: 12/31/17 09:40 Dose: 3.125 mg Citalopram Hydrobromide (Celexa) 20 mg PO DAILY MOSHE PRN Reason: Protocol Stop: 02/18/18 19:12 Last Admin: 12/31/17 09:39 Dose: 20 mg Furosemide (Lasix) 20 mg PO DAILY MOSHE Stop: 02/10/18 08:59 Last Admin: 12/31/17 09:41 Dose: 20 mg Gabapentin (Neurontin) 300 mg PO BID MOSHE Stop: 02/10/18 08:59 Last Admin: 12/31/17 09:39 Dose: 300 mg Lisinopril (Zestril) 20 mg PO DAILY MOSHE Stop: 02/10/18 08:59 Last Admin: 12/31/17 09:40 Dose: 20 mg Lorazepam (Ativan) 0.5 mg PO Q4HR PRN; Protocol PRN Reason: Agitation Stop: 02/17/18 17:12 Last Admin: 12/30/17 17:02 Dose: 0.5 mg Magnesium Oxide (Mag-Oxide) 400 mg PO DAILY MOSHE Stop: 02/10/18 08:59 Last Admin: 12/31/17 09:38 Dose: 400 mg Metformin HCl (Glucophage) 1,000 mg PO BIDWM MOSHE Stop: 02/10/18 07:59 Last Admin: 12/31/17 09:38 Dose: 1,000 mg Multivitamins/Vitamin C (Theragran) 1 tab PO DAILY MOSHE Stop: 02/10/18 08:59 Last Admin: 12/31/17 09:38 Dose: 1 tab Nitroglycerin (Nitrostat) 0.4 mg SL Q5MIN PRN PRN Reason: Chest Pain Stop: 02/09/18 20:39 Simvastatin (Zocor) 20 mg PO HS MOSHE PRN Reason: Protocol Stop: 02/09/18 20:59 Last Admin: 12/30/17 20:37 Dose: 20 mg Tamsulosin HCl (Flomax) 0.4 mg PO HS MOSHE Stop: 02/09/18 20:59 Last Admin: 12/30/17 20:37 Dose: 0.4 mg Zolpidem Tartrate (Ambien) 5 mg PO HS PRN PRN Reason: Insomnia Stop: 02/09/18 16:57 Last Admin: 12/30/17 20:37 Dose: 5 mg General: Alert, Other (Confused) HEENT: Atraumatic Neck: Supple Cardiovascular: Regular rate Abdomen: Bowel sounds, Soft Extremities: Other (No edema) Neurological: Other (Unstable gait) Skin: Other (warm and dry) Psych/Mental Status: Other (Confused, not oriented) Assessment/Plan - Problem List Patient Problems: All Active Problems AGITATION AND AGGRESSION (Acute) - Assessment Assessment: Current Active Problems Problem Status Onset AGITATION AND AGGRESSION Acute Patient is awake, alert, confused. DX: Incresed in agitation, HTN, Schizophrenia. - Plan Plan: Patient is follow by Psychiatry, Continue with SNF meds. Will continue to monitor. Nutritional Asmnt/Malnutr-PDOC - Dietary Evaluation Malnutrition Findings (Please click <Entered> for more info): Nutritional Asmnt/Malnutrition Start: 12/16/17 14: 18 Text: Status: Complete Freq: Document 12/16/17 14:18 LCHENG (Rec: 12/16/17 14:26 [email or web address]) Nutritional Asmnt/Malnutrition Patient General Information Nutritional Screening Moderate Risk Diagnosis psychosis Pertinent Medical Hx/Surgical Hx CAD, HTN, psychosis, schizophrenia, dyslipidemia Subjective Information Per EMR, PO intake 100% of meals. Current Diet Order/ Nutrition Support DARBY, double portion Pertinent Medications laisx, mag-oxide, glucophage, theragran Pertinent Labs 4/2 glucose 115, POC 107-115, A1c 6.0 Nutritional Hx/Data Height 1.7 m Height (Calculated Centimeters) 170.2 Current Weight (lbs) 90.718 kg Weight (Calculated Kilograms) 90.7 Weight (Calculated Grams) 51499.5 [place] Body Weight 148 Body Mass Index (BMI) 31.3 Weight Status Obese GI Symptoms GI Symptoms None Last BM 4/6 Difficult in: None Skin Integrity/Comment: bruises Current %PO Good (75-100%) Estimated Nutritional Goals BEE in Kcals: Adj wt of IBW Calories/Kcals/Kg 25-30 Kcals Calculated 8271-3256 Protein: Adj wt of IBW Protein g/k Protein Calculated 73 Fluid: ml 1825-2190ml (1ml/kcal) Intervention/Recommendation Comments 1. Continue with current diet as ordered. Continue monitor blood sugar. 2. Monitor PO intake, wt, labs and skin integrity 3. F/U as low risk in 7d ays, 12/23 Expected Outcomes/Goals Expected Outcomes/Goals 1. PO intake to meet at least 75% of nutritional needs. 2. Wt stability, skin to remain intact, labs to approach WNL.
--- NOTE | 2018-01-01 01:25 | Progress Notes ---
DATE: 12/31/2017 PSYCHIATRIC PROGRESS NOTE SUBJECTIVE: Staff was spoken to. The patient is interviewed. Mood is noted to be irritable. Affect is constricted. Coping skills are noted to be poor. The patient has been having frustrations that not able to get out of here and binder caser have been looking for placement for this patient as the [facility] has accepted the patient, but there is no bed available for this patient. ASSESSMENT: The patient is being closely monitored and await for placement. PLAN: To continue the patient with the supportive therapy and followup. JOB# [id number]
[2018-01-01] MEDS: Multivitamin Tab PO SCH (08:49)
--- NOTE | 2018-01-01 08:50 | General Progress Note ---
Subjective - Review of Systems Service Date: 01/01/18 Subjective: I am ok. Objective - Results Result Diagrams: 12/11/17 12:30 12/11/17 12:30 Recent Labs: Laboratory Last Values WBC 9.5 Th/cmm (4.8-10.8) 12/11/17 12:30 RBC 5.29 Mil/cmm (3.80-5.80) 12/11/17 12:30 Hgb 15.5 gm/dL (12-16) 12/11/17 12:30 Hct 46.7 % (41.0-60) 12/11/17 12:30 MCV 88.4 fl (80-99) 12/11/17 12:30 MCH 29.4 pg (27.0-31.0) 12/11/17 12:30 MCHC Differential 33.2 pg (28.0-36.0) 12/11/17 12:30 RDW 15.9 % (11.5-20.0) 12/11/17 12:30 Plt Count 243 Th/cmm (150-400) 12/11/17 12:30 MPV 7.6 fl 12/11/17 12:30 Neutrophils % 67.0 % (40.0-80.0) 12/11/17 12:30 Lymphocytes % 21.5 % (20.0-50.0) 12/11/17 12:30 Monocytes % 5.8 % (2.0-10.0) 12/11/17 12:30 Eosinophils % 3.9 % (0.0-5.0) 12/11/17 12:30 Basophils % 1.8 % (0.0-2.0) 12/11/17 12:30 Sodium 138 mEq/L (136-145) 12/11/17 12:30 Potassium 3.7 mEq/L (3.5-5.1) 12/11/17 12:30 Chloride 105 mEq/L (98-107) 12/11/17 12:30 Carbon Dioxide 22.7 mEq/L (21.0-31.0) 12/11/17 12:30 Anion Gap 14.0 (7.0-16.0) 12/11/17 12:30 BUN 14 mg/dL (7-25) 12/11/17 12:30 Creatinine 0.7 mg/dL (0.7-1.3) 12/11/17 12:30 Est GFR ( Amer) > 60.0 ml/min (>90) 12/11/17 12:30 Est GFR (Non-Af Amer) > 60.0 ml/min 12/11/17 12:30 BUN/Creatinine Ratio 20.0 12/11/17 12:30 Glucose 115 mg/dL (70-105) H 12/11/17 12:30 POC Glucose 115 MG/DL (70 - 105) H 12/15/17 20:11 Hemoglobin A1c % 6.0 % (4.0-6.0) 12/11/17 12:30 Calcium 9.3 mg/dL (8.6-10.3) 12/11/17 12:30 Total Bilirubin 0.6 mg/dL (0.3-1.0) 12/11/17 12:30 AST 16 U/L (13-39) 12/11/17 12:30 ALT 15 U/L (7-52) 12/11/17 12:30 Alkaline Phosphatase 86 U/L (34-104) 12/11/17 12:30 Total Protein 7.0 gm/dL (6.0-8.3) 12/11/17 12:30 Albumin 4.3 gm/dL (4.2-5.5) 12/11/17 12:30 Globulin 2.7 gm/dL 12/11/17 12:30 Albumin/Globulin Ratio 1.6 (1.0-1.8) 12/11/17 12:30 Triglycerides 106 mg/dL (<150) 12/11/17 12:30 Cholesterol 123 mg/dL (<200) 12/11/17 12:30 LDL Cholesterol Direct 96 mg/dL (75-193) 12/11/17 12:30 HDL Cholesterol 26 mg/dL (23-92) 12/11/17 12:30 TSH 1.06 uIU/ml (0.34-5.60) 12/11/17 12:30 Urine Source CLEAN C 12/11/17 12:15 Urine Color YELLOW 12/11/17 12:15 Urine Clarity CLEAR (CLEAR) 12/11/17 12:15 Urine pH 7.0 (4.6 - 8.0) 12/11/17 12:15 Ur Specific [place] 1.015 (1.005-1.030) 12/11/17 12:15 Urine Protein NEGATIVE mg/dL (NEGATIVE) 12/11/17 12:15 Urine Glucose (UA) NEGATIVE mg/dL (NEGATIVE) 12/11/17 12:15 Urine Ketones NEGATIVE mg/dL (NEGATIVE) 12/11/17 12:15 Urine Blood NEGATIVE (NEGATIVE) 12/11/17 12:15 Urine Nitrate NEGATIVE (NEGATIVE) 12/11/17 12:15 Urine Bilirubin NEGATIVE (NEGATIVE) 12/11/17 12:15 Urine Urobilinogen 1.0 E.U./dL (0.2 - 1.0) 12/11/17 12:15 Ur Leukocyte Esterase NEGATIVE (NEGATIVE) 12/11/17 12:15 Urine RBC 0-2 /hpf (0-5) H 12/11/17 12:15 Urine WBC 0-2 /hpf (0-5) 12/11/17 12:15 Ur Epithelial Cells FEW /lpf (FEW) 12/11/17 12:15 Urine Bacteria OCCASIONAL /hpf (NONE SEEN) 12/11/17 12:15 Salicylates < 25.0 mg/L (30.0-100.0) L 12/11/17 12:30 Acetaminophen < 10.0 ug/mL (10.0-30.0) L 12/11/17 12:30 Ethyl Alcohol < 10 mg/dL (0-10) 12/11/17 12:30 RPR NONREACTIVE (NONREACTIVE) 12/11/17 12:30 - Physical Exam Vitals and I&O: Vital Signs Temp 97.5 F 01/01/18 05:57 Pulse 60 01/01/18 05:57 Resp 20 01/01/18 05:57 BP 127/74 01/01/18 05:57 Pulse Ox 98 01/01/18 05:57 Intake & Output 12/31/17 01/01/18 01/01/18 18:59 06:59 18:59 Intake Total 1200 420 Balance 1200 420 Intake: Oral 1200 420 Other: # Voids 3 2 # Bowel Movements 1 0 Active Medications: Current Medications Acetaminophen (Tylenol) 650 mg PO Q4HR PRN PRN Reason: Mild Pain / Temp above 100 Stop: 02/09/18 16:57 Last Admin: 12/30/17 20:38 Dose: 650 mg Al Hydrox/Mg Hydrox/Simethicone (Maalox) 30 ml PO Q4HR PRN PRN Reason: GI DISTRESS Stop: 02/09/18 16:57 Albuterol/Ipratropium (Duoneb Neb) 3 ml HHN Q6HR PRN PRN Reason: WHEEZING/SOB Stop: 02/09/18 20:39 Amlodipine Besylate (Norvasc) 5 mg PO DAILY MOSHE Stop: 02/10/18 08:59 Last Admin: 12/31/17 09:40 Dose: 5 mg Aspirin (Aspirin) 325 mg PO DAILY MOSHE Stop: 02/10/18 08:59 Last Admin: 12/31/17 09:38 Dose: 325 mg Carvedilol (Coreg) 3.125 mg PO BID MOSHE Stop: 02/10/18 08:59 Last Admin: 12/31/17 16:52 Dose: 3.125 mg Citalopram Hydrobromide (Celexa) 20 mg PO DAILY MOSHE PRN Reason: Protocol Stop: 02/18/18 19:12 Last Admin: 12/31/17 09:39 Dose: 20 mg Furosemide (Lasix) 20 mg PO DAILY MOSHE Stop: 02/10/18 08:59 Last Admin: 12/31/17 09:41 Dose: 20 mg Gabapentin (Neurontin) 300 mg PO BID MOSHE Stop: 02/10/18 08:59 Last Admin: 12/31/17 16:52 Dose: 300 mg Lisinopril (Zestril) 20 mg PO DAILY MOSHE Stop: 02/10/18 08:59 Last Admin: 12/31/17 09:40 Dose: 20 mg Lorazepam (Ativan) 0.5 mg PO Q4HR PRN; Protocol PRN Reason: Agitation Stop: 02/17/18 17:12 Last Admin: 12/31/17 22:00 Dose: 0.5 mg Magnesium Oxide (Mag-Oxide) 400 mg PO DAILY MOSHE Stop: 02/10/18 08:59 Last Admin: 12/31/17 09:38 Dose: 400 mg Metformin HCl (Glucophage) 1,000 mg PO BIDWM MOSHE Stop: 02/10/18 07:59 Last Admin: 12/31/17 17:00 Dose: 1,000 mg Multivitamins/Vitamin C (Theragran) 1 tab PO DAILY MOSHE Stop: 02/10/18 08:59 Last Admin: 12/31/17 09:38 Dose: 1 tab Nitroglycerin (Nitrostat) 0.4 mg SL Q5MIN PRN PRN Reason: Chest Pain Stop: 02/09/18 20:39 Simvastatin (Zocor) 20 mg PO HS MOSHE PRN Reason: Protocol Stop: 02/09/18 20:59 Last Admin: 12/31/17 20:38 Dose: 20 mg Tamsulosin HCl (Flomax) 0.4 mg PO HS MOSHE Stop: 02/09/18 20:59 Last Admin: 12/31/17 20:38 Dose: 0.4 mg Zolpidem Tartrate (Ambien) 5 mg PO HS PRN PRN Reason: Insomnia Stop: 02/09/18 16:57 Last Admin: 12/31/17 20:38 Dose: 5 mg General: Alert, Other (Confused) HEENT: Atraumatic Neck: Supple Cardiovascular: Regular rate Abdomen: Bowel sounds, Soft Extremities: Other (No edema) Neurological: Other (Unstable gait) Skin: Other (warm and dry) Psych/Mental Status: Other (Confused, not oriented) Assessment/Plan - Problem List Patient Problems: All Active Problems AGITATION AND AGGRESSION (Acute) - Assessment Assessment: Current Active Problems Problem Status Onset AGITATION AND AGGRESSION Acute Patient is awake, alert, confused. DX: Incresed in agitation, HTN, Schizophrenia. - Plan Plan: Patient is follow by Psychiatry, Continue with SNF meds. Will continue to monitor. Nutritional Asmnt/Malnutr-PDOC - Dietary Evaluation Malnutrition Findings (Please click <Entered> for more info): Nutritional Asmnt/Malnutrition Start: 12/16/17 14: 18 Text: Status: Complete Freq: Document 12/16/17 14:18 LCHENG (Rec: 12/16/17 14:26 HENG [email or web address]) Nutritional Asmnt/Malnutrition Patient General Information Nutritional Screening Moderate Risk Diagnosis psychosis Pertinent Medical Hx/Surgical Hx CAD, HTN, psychosis, schizophrenia, dyslipidemia Subjective Information Per EMR, PO intake 100% of meals. Current Diet Order/ Nutrition Support DARBY, double portion Pertinent Medications laisx, mag-oxide, glucophage, theragran Pertinent Labs 4/2 glucose 115, POC 107-115, A1c 6.0 Nutritional Hx/Data Height 1.7 m Height (Calculated Centimeters) 170.2 Current Weight (lbs) 90.718 kg Weight (Calculated Kilograms) 90.7 Weight (Calculated Grams) 33910.5 [place] Body Weight 148 Body Mass Index (BMI) 31.3 Weight Status Obese GI Symptoms GI Symptoms None Last BM 4/6 Difficult in: None Skin Integrity/Comment: bruises Current %PO Good (75-100%) Estimated Nutritional Goals BEE in Kcals: Adj wt of IBW Calories/Kcals/Kg 25-30 Kcals Calculated 2648-4173 Protein: Adj wt of IBW Protein g/k Protein Calculated 73 Fluid: ml 1825-2190ml (1ml/kcal) Intervention/Recommendation Comments 1. Continue with current diet as ordered. Continue monitor blood sugar. 2. Monitor PO intake, wt, labs and skin integrity 3. F/U as low risk in 7d ays, 12/23 Expected Outcomes/Goals Expected Outcomes/Goals 1. PO intake to meet at least 75% of nutritional needs. 2. Wt stability, skin to remain intact, labs to approach WNL.
--- NOTE | 2018-01-02 15:13 | Progress Notes ---
DATE: 01/01/2018 SUBJECTIVE: Staff was spoken to. The patient is interviewed. Mood is noted to be irritable. Affect is constricted. The patient is getting frustrated. He states that he has been in here for 3 weeks and has not figure it out where he is living. No side effects to medications are noted at this time. The patient is getting easily frustrated. ASSESSMENT: The patient is awaiting placement. PLAN: To continue the patient with the supportive therapy and follow. JOB# [id number]
== END 2018-01-01 19:15 | DRG 885 ==
LOC: ER 12:07 → GERO 13:32
PROVIDERS: ADMIT Psychiatry & Neurology Psychiatry; ATTEND Psychiatry & Neurology Psychiatry
DX: F33.1 Major depressive disorder, recurrent, moderate (principal); I10 Essential (primary) hypertension; I25.10 Atherosclerotic heart disease of native coronary artery without angina pectoris; F20.9 Schizophrenia, unspecified; E78.5 Hyperlipidemia, unspecified; K21.9 Gastro-esophageal reflux disease without esophagitis; Z82.49 Family history of ischemic heart disease and other diseases of the circulatory system; Z79.82 Long term (current) use of aspirin
CPT/HCPCS: 36415-UA; 80053-TC; 80061-TC; 80320-TC; 80329-TC; 81001-TC; 82948-90; 83036-90; 84443-TC; 85025-TC; 86592-TC; 90899; 93005; G0410; J2060; Z7610

== ENCOUNTER 2018-01-18 18:26 | Inpatient (IN) | payer MEDICARE, OTHER ==
--- NOTE | 2018-01-18 19:57 | ED Physician Chart ---
ED Chief Complaint/HPI - Patient Information Date Seen:: 01/18/18 Time Seen:: 19:45 Chief Complaint:: increased agitation and aggression History of Present Illness:: Patient has reportedly been exhibiting increased agitation and aggression at his extended care facility. Allergies:: Allergies Allergy/AdvReac Type Severity Reaction Status Date / Time No Known Allergies Allergy Verified 01/18/18 19:39 Vitals:: Vital Signs - 8 hr 01/18/18 19:25 Temp 98.1 F HR 78 RR 18 BP 125/69 O2 Sat % 96 Historian:: Patient Review:: Transfer documents Reviewed ED Review of Systems - Review of Systems General/Constitutional: No fever, No chills, No weight loss, No weakness, No diaphoresis, No edema, No loss of appetite Skin: No skin lesions, No rash, No bruising Head: No headache, No light-headedness Eyes: No loss of vision, No pain, No diplopia ENT: No earache, No nasal drainage, No sore throat, No tinnitus Neck: No neck pain, No swelling, No thyromegaly, No stiffness, No mass noted Cardio Vascular: No chest pain, No palpitations, No PND, No orthopnea, No edema Pulmonary: No SOB, No cough, No sputum, No wheezing GI: No nausea, No vomiting, No diarrhea, No pain, No melena, No hematochezia, No constipation, No hematemesis G/U: No dysuria, No frequency, No hematuria Musculoskeletal: No bone or joint pain, No back pain, No muscle pain Endocrine: No polyuria, No polydipsia Psychiatric: Prior psych history, Depression Hematopoietic: No bruising, No lymphadenopathy Allergic/Immuno: No urticaria, No angioedema Neurological: No syncope, No focal symptoms, No weakness, No paresthesia, No headache, No seizure, No dizziness, No confusion, No vertigo ED Past Medical History - Past Medical History Past Medical History: HTN, DM, Asthma/COPD, Dementia, Other (benign prostatic hypertrophy; atherosclerotic heart disease; schizophrenia; major depression) Family History: None, Diabetes [place] Social History: Care Facility Surgical History: None Psychiatricy History: Depression, Schizophrenia, Dementia Family Medical History - Family Member Mother History Unknown: Yes Ethnicity: Unknown Living Status: Unknown Hx Family Cancer: (unknown) Hx Family Coronary Artery Disease: (unknown) Hx Family Congestive Heart Failure: (unknown) Hx Family Hypertension: (unknown) Hx Family Stroke: (unknown) Hx Family Diabetes: (unknown) Hx Family Seizures: (unknown) Hx Family Dementia: (unknown) Hx Family AIDS: (unknown) Hx Family COPD: (unknown) Hx Family Hepatitis: (unknown) Hx Family Psychiatric Problems: (unknown) Hx Family Tuberculosis: (unknown) ED Physical Exam - Physical Examination General/Constitutional: Awake, Well-developed, well-nourished, Alert, No distress, GCS 15, Non-toxic appearing, Ambulatory Head: Atraumatic Eyes: Lids, conjuctiva normal, PERRL, EOMI Skin: Nl inspection, No rash, No skin lesions, No ecchymosis, Well hydrated, No lymphadenopathy ENMT: External ears, nose nl, Nasal exam nl, Lips, teeth, gums nl Neck: Nontender, Full ROM w/o pain, No JVD, No nuchal rigidity, No bruit, No mass, No stridor Respiratory: Nl effort/Exclusion, Clear to Auscultation, No Wheeze/Rhonchi/Rales Cardio Vascular: RRR, No murmur, gallop, rubs, NL S1 S2 GI: No tenderness/rebounding/guarding, No organomegaly, No hernia, Normal BS's, Nondistended, No mass/bruits, No McBurney tenderness : No CVA tenderness Extremities: No tenderness or effusion, Full ROM, normal strength in all extremities, No edema, Normal digits & nails Neuro/Psych: Alert/oriented, DTR's symmetric, Normal sensory exam, Normal motor strength, Judgement/insight normal, Mood normal, Normal gait, No focal deficits Misc: Normal back, No paraspinal tenderness ED Labs/Radiology/EKG Results - Lab Results Results: Laboratory Results - last 24 hr 01/18/18 01/18/18 01/18/18 20:00 20:00 20:00 WBC 9.2 RBC 4.45 Hgb 13.6 Hct 40.8 L MCV 91.6 MCH 30.5 MCHC Differential 33.2 RDW 13.3 Plt Count 222 MPV 7.5 Neutrophils % 62.2 Lymphocytes % 26.2 Monocytes % 6.4 Eosinophils % 4.0 Basophils % 1.2 Sodium 139 Potassium 4.3 Chloride 104 Carbon Dioxide 27.1 Anion Gap 12.2 BUN 16 Creatinine 0.8 Est GFR ( Amer) > 60.0 Est GFR (Non-Af Amer) > 60.0 BUN/Creatinine Ratio 20.0 Glucose 116 H Calcium 9.1 Total Bilirubin 0.3 AST 13 ALT 13 Alkaline Phosphatase 71 Total Protein 6.5 Albumin 3.8 L Globulin 2.7 Albumin/Globulin Ratio 1.4 Triglycerides 108 Cholesterol 117 LDL Cholesterol Direct 80 HDL Cholesterol 25 TSH 1.43 - EKG Interpretations Rate & Rhythm: normal sinus rhythm with rate of 50 [place]: borderline left axis deviation Comments:: Left bundle branch block; T-wave changes in leads 1 and aVL and V6 ED Septic Shock - . Is Septic Shock (SBP<90, OR Lactate>4 mmol\L) present?: No - <6hrs of presentation: Vital Signs: Vital Signs - 8 hr 01/18/18 19:25 Temp 98.1 F HR 78 RR 18 BP 125/69 O2 Sat % 96 ED Reassessment (Disposition) - Reassessment Reassessment Condition:: Unchanged - Diagnosis Diagnosis:: Increased agitation; dementia - Patient Disposition Admitted to:: [facility] Admitting Medical Physician:: Florencio Witt Admitting Psych Physician:: Maru Red Condition at Disposition:: Stable, Unchanged
[2018-01-18 20:09] LABS: % BASOPHILS 1.2 % (0.0-2.0); % LYMPHOCYTES 26.2 % (20.0-50.0); % MONOCYTES 6.4 % (2.0-10.0); % NEUTROPHILS 62.2 % (40.0-80.0); BASOPHILE ABSOLUTE 0.1 Th/cumm (0-0.2); EOSINOPHILE ABSOLUTE 0.4 Th/cmm (0.1-0.4); HEMATOCRIT 40.8 % (41.0-60); HEMOGLOBIN 13.6 gm/dL (12-16); LYMPHOCYTE ABSOLUTE 2.4 Th/cmm (1.5-3.0); MEAN CELL VOLUME 91.6 fl (80-99); MEAN CORPUSCULAR HEMOGLOBIN 30.5 pg (27.0-31.0); MEAN CORPUSCULAR HGB CONC 33.2 pg (28.0-36.0); MEAN PLATELET VOLUME 7.5 fl; MONOCYTE ABSOLUTE 0.6 Th/cmm (0.3-1.0); NEUTROPHILE ABSOLUTE 5.7 Th/cmm (1.8-8.0); PLATELET COUNT 222 Th/cmm (150-400); RED BLOOD COUNT 4.45 Mil/cmm (3.80-5.80); RED CELL DISTRIBUTION WIDTH 13.3 % (11.5-20.0); WHITE BLOOD COUNT 9.2 Th/cmm (4.8-10.8)
[2018-01-18 20:23] LABS: ALB/GLOB RATIO 1.4 (1.0-1.8); ALBUMIN 3.8 gm/dL (4.2-5.5); ALKALINE PHOSPHATASE 71 U/L (34-104); ANION GAP 12.2 (7.0-16.0); BILIRUBIN,TOTAL 0.3 mg/dL (0.3-1.0); BUN - UREA NITROGEN 16 mg/dL (7-25); CALCIUM SERUM 9.1 mg/dL (8.6-10.3); CARBON DIOXIDE 27.1 mEq/L (21.0-31.0); CHLORIDE 104 mEq/L (98-107); CHOLESTEROL 117 mg/dL (<200); CREATININE - SERUM 0.8 mg/dL (0.7-1.3); GFR AFRICAN-AMERICAN > 60.0 ml/min (>90); GFR NON AFRICAN-AMERICAN > 60.0 ml/min; GLUCOSE 116 mg/dL (70-105); HDL -HIGH DENSITY LIPOPROTEIN 25 mg/dL (23-92); POTASSIUM SERUM 4.3 mEq/L (3.5-5.1); SGOT 13 U/L (13-39); SGPT/ALT 13 U/L (7-52); SODIUM SERUM 139 mEq/L (136-145); TOTAL PROTEIN,SERUM 6.5 gm/dL (6.0-8.3); TRIGLYCERIDES 108 mg/dL (<150)
[2018-01-18 21:34] LABS: URINE MICROSCOPIC INDICATED? YES; URINE SOURCE CLEAN C
[2018-01-18 21:35] LABS: URINE BILIRUBIN NEGATIVE (NEGATIVE); URINE BLOOD NEGATIVE (NEGATIVE); URINE GLUCOSE (UA) NEGATIVE (NEGATIVE); URINE KETONE NEGATIVE (NEGATIVE); URINE LEUKOCYTE ESTERASE NEGATIVE (NEGATIVE); URINE NITRATE NEGATIVE (NEGATIVE); URINE PH 6.5 (4.6 - 8.0); URINE PROTEIN NEGATIVE (NEGATIVE)
[2018-01-18 21:48] LABS: URINE BACTERIA NONE SEEN /hpf (NONE SEEN); URINE CLARITY SLIGHTLY HAZY (CLEAR); URINE COLOR YELLOW; URINE EPITHELIAL CELLS RARE /lpf (FEW); URINE RBC 0-2 /hpf (0-5); URINE WBC 0-2 /hpf (0-5)
[2018-01-18 23:01] VITALS: BP 138/65
[2018-01-18] MEDS ORDERED: Magnesium Hydroxide (MOM) 30 mL UDC PO PRN (23:04)
[2018-01-18] MEDS ORDERED: Maalox 30 mL Cup PO PRN (23:04)
[2018-01-19] MEDS: Multivitamin Tab PO SCH (08:19)
--- NOTE | 2018-01-19 16:13 | History and Physical ---
History of Present Illness - HPI Chief Complaint: Increased in agitation HPI: Patient was send for evaluation due to increased in agitation. Vital Signs: Last Vital Signs Temp 98.0 F 01/19/18 14:00 Pulse 58 01/19/18 14:00 Resp 18 01/19/18 14:00 BP 151/59 01/19/18 14:00 Pulse Ox 97 01/19/18 14:00 Past Medical History Cardiovascular: Report: CAD, CHF, HTN Pulmonary: Report: COPD [employer]: Report: Dementia GI: Report: No Pertinent Hx Psych: Report: Psychosis, Schizophrenia Musculoskeletal: Report: No Pertinent Hx Rheumatologic: Report: No pertinent Hx Infectious Disease: Report: No Pertinent Hx Renal/: Report: No Pertinent Hx Endocrine: Report: Diabetes Dermatology: Report: No Pertinent Hx - Past Surgical History Past Surgical History: No pertinent Hx Family Medical History - Family Member Mother History Unknown: Yes Ethnicity: Unknown Living Status: Unknown Hx Family Cancer: (unknown) Hx Family Coronary Artery Disease: (unknown) Hx Family Congestive Heart Failure: (unknown) Hx Family Hypertension: (unknown) Hx Family Stroke: (unknown) Hx Family Diabetes: (unknown) Hx Family Seizures: (unknown) Hx Family Dementia: (unknown) Hx Family AIDS: (unknown) Hx Family COPD: (unknown) Hx Family Hepatitis: (unknown) Hx Family Psychiatric Problems: (unknown) Hx Family Tuberculosis: (unknown) Social History Smoke: 1 pack per day Alcohol: None Drugs: None Lives: [place] Domestic Violence: Negative - Medications Home Medications: Home Medication Medication Instructions Recorded Type Acetaminophen [Tylenol] 650 mg PO Q4HR PRN tab 12/19/17 Rx Al Hyd/Mg Hyd/Simethicone [Maalox] 30 ml PO Q4HR PRN udc 12/19/17 Rx Albuterol/Ipratropium Neb [Duoneb 3 ml HHN Q6HR PRN aers 12/19/17 Rx Neb] Aspirin 325 mg PO DAILY tab 12/19/17 Rx Carvedilol [Coreg] 3.125 mg PO BID tab 12/19/17 Rx Furosemide [Lasix] 20 mg PO DAILY tab 12/19/17 Rx Gabapentin [Neurontin*] 300 mg PO BID cap 12/19/17 Rx Lisinopril [Zestril] 20 mg PO DAILY tab 12/19/17 Rx Lorazepam [Ativan] 0.5 mg PO Q4HR PRN tab 12/19/17 Rx Magnesium Hydroxide [Milk of 30 ml PO HS PRN udc 12/19/17 Rx Magnesia] Magnesium Oxide [Mag-Oxide] 400 mg PO DAILY tab 12/19/17 Rx Multivitamin [Theragran] 1 tab PO DAILY tab 12/19/17 Rx Nitroglycerin [Nitrostat*] 0.4 mg SL Q5MIN PRN tab 12/19/17 Rx Simvastatin [Zocor*] 20 mg PO HS tab 12/19/17 Rx Tamsulosin [Flomax] 0.4 mg PO HS cap 12/19/17 Rx Zolpidem Tartrate [Ambien] 5 mg PO HS PRN tab 12/19/17 Rx amLODIPine Besylate [Norvasc] 5 mg PO DAILY tab 12/19/17 Rx metFORMIN [Glucophage] 1,000 mg PO BIDWM tab 12/19/17 Rx Cranberry Fruit Extract [Cranberry] 425 mg PO DAILY 01/18/18 History Docusate Sodium [Col-Rite] 100 mg PO DAILY 01/18/18 History Donepezil Hcl [Aricept] 5 mg PO HS 01/18/18 History Potassium Chloride [Klor-Con] 20 meq PO DAILY 01/18/18 History QUEtiapine Fumarate [SEROquel] 25 mg PO BID 01/18/18 History - Allergies Allergies/Adverse Reactions: Allergies Allergy/AdvReac Type Severity Reaction Status Date / Time No Known Allergies Allergy Verified 01/18/18 19:39 Review of Systems - Review of Systems Constitutional: Report: No Significant Eyes: Report: No Significant ENT: Report: No Significant Respiratory: Report: No Significant Cardiovascular: Report: No Significant Genitourinary: Report: No Significant Musculoskeletal: Report: No Significant Skin: Report: No Significant Neurological: Report: Weakness Physical Exam - Physical Exam HEENT: Report: Ears Nose Throat within normal limits Neck: Report: Within normal limits Cardiovascular Systems: Report: Regular, Rate and Rhythm Respiratory: Report: Breath Sounds are within normal limits Abdomen: Report: Non-tender to palpation Back: Report: Inspection of back is within normal limits. Extremities: Report: Non-tender to palpation. Skin: Report: Color of skin is within normal limits, Warm, Dry Neuro/Psych: Report: Disoriented to name time or place - Assessment Assessment: Patient is awake, alert, confused, not oriented. Dx: increased in agitation, HTN, DM, BPH, CAD, Dementia, Schizophrenia - Plan Plan: Patient is under Psychiatric care. He is continue with SNF meds.
[2018-01-19] MEDS ORDERED: Albuterol/Ipratropium Neb 3 ML AERS HHN PRN (16:15)
[2018-01-19] MEDS ORDERED: Maalox 30 mL Cup PO PRN (16:15)
--- NOTE | 2018-01-19 22:47 | Psychosocial Evaluation ---
DATE OF SERVICE: 01/19/2018 IDENTIFYING DATA: The patient is a 67-year-old male, resident of [facility], [place]. Information obtained directly interviewing the patient as well as reviewing the admission papers and they are reliable. JUSTIFICATION FOR HOSPITALIZATION: The patient is admitted here on a voluntary basis in view of his acute agitation and aggressive behavior. CHIEF COMPLAINT: "I do not know why they have to bring me in here. I am getting frustrated." HISTORY OF PRESENT ILLNESS: This is one of multiple psychiatric hospitalizations for this patient who was under my care recently and was discharged to the [facility] for further followup over there. On the day of the hospitalization, the patient is reported to have been agitated and out of control and could not be contained at a lower level of care and hence has to be referred over here for further stabilization. PAST PSYCHIATRIC HISTORY: Please refer to the above. MEDICAL HISTORY: Physical examination is requested by Dr. Witt. SUBSTANCE ABUSE HISTORY: None. PHYSICAL OR SEXUAL ABUSE HISTORY: None. LEGAL PROBLEMS: None at this time. MENTAL STATUS EXAMINATION: The patient is a 67-year-old, looking his stated age, wheelchair bound, superficially cooperative. Eye contact is poor. Mood irritable. Affect is constricted. Insight and judgment at this time are noted to be much impaired. Impulse control seems to be poor. The patient is getting easily annoyed. The patient has paranoia and short term memory is noted to be very poor. Long-term memory seems to be fair. The patient is insisting that there is no reason for him to be in here. The patient's coping skills at this time are noted to be very poor. The patient has been insisting on having his way and is stating that he has been missing his girlfriend and he should be at this nursing facility with his girlfriend. The patient has no insight into his illness. DIAGNOSTIC IMPRESSION: AXIS IA: Major depressive disorder; recurrent and moderate. I B: Dementia and behavioral change, secondary trait. AXIS II: None. AXIS III: As per Dr. Witt. IMMEDIATE TREATMENT PLAN: The patient is going to be observed on inpatient unit, provided with supportive psychotherapy. The patient is going to be closely monitored. Once stabilized, the patient is going to be discharged to [facility], to be followed up on an outpatient basis. JOB# [id number]
[2018-01-20] MEDS: Multivitamin Tab PO SCH (09:11)
--- NOTE | 2018-01-20 12:59 | Progress Notes ---
DATE: 01/20/2018 SUBJECTIVE: Staff was spoken to. The patient is interviewed. Mood is noted to be irritable. Affect is constricted. Coping skills are noted to be poor. The patient is screaming and yelling, stating that there is no reason for him to be in here and he has been brought over here for no reason. Coping skills at this time are noted to be very poor. The patient has been having difficult time to cope with the stress. The patient at this time is insisting that I need to discharge him to go back to the facility because he has his girlfriend over there and he misses her. ASSESSMENT: The patient is depressed and paranoid. PLAN: To continue the patient with the Celexa and I encouraged the patient to verbalize the concerns rather than to act out. If the patient continues to be impulsive, possibly low dose of the Seroquel is going to be added. The patient is going to be closely monitored with the Celexa at this time and followed up. JOB# [id number]
--- NOTE | 2018-01-20 16:48 | Consultation ---
DATE OF CONSULTATION: 01/20/2018 REFERRING PHYSICIAN: Maru Red MD TYPE OF CONSULTATION: Psychology. HISTORY OF PRESENT ILLNESS: The patient is a 67-year-old male. The patient is a resident of [facility]. The following is by review of the medical record as well as by the patient's self report. The patient is being admitted on a voluntary basis due to increased agitation and aggressive behavior. According to record review, the patient was reported to have agitated behavior and was out of control and unable to be contained. Upon interview, the patient is denying that behavior and states that he is frustrated and does not understand why he has been brought here. The patient denied any suicidal ideation, plan or intention. PAST MEDICAL HISTORY: Please see history and physical by Dr. Witt. PAST PSYCHIATRIC HISTORY: The patient has a history of bipolar disorder according to the record. The patient is under the care of a psychiatrist at his placement. SUBSTANCE ABUSE HISTORY: The patient denies any history of alcohol, tobacco or illicit drug use. PSYCHOSOCIAL HISTORY: The patient did not answer questions about occupational or educational history or mormonism affiliation. The patient denies any history of physical or sexual abuse. The patient denied any current legal problems. MENTAL STATUS EXAMINATION: The patient appears to be his stated age. The patient's attitude is superficially cooperative. Eye contact is poor. Speech is delayed with intermittent episodes of yelling. Mood is irritable. Affect is constricted. Thought process is linear with perseveration. The patient continued to focus on personal issues involving his girlfriend. The patient continued to state that he was frustrated. The patient denied any auditory or visual hallucinations or any delusions. There is some evidence of possible paranoid ideation. The patient's behavior on the unit has been difficult to redirect. Impulse control is poor. Concentration is fair. The patient was able to respond to clinical questions. Memory assessment indicates the patient's long-term memory is grossly intact, but short-term memory is impaired.Sensorium is alert and oriented to person and place. The patient did not participate in the interpretation of proverbs. Insight is poor. Judgment is compromised. DIAGNOSTIC IMPRESSION: AXIS I: 1. Major depressive disorder, recurrent, moderate. 2. Dementia with behavioral disturbance. AXIS II: Deferred. AXIS III: Please see history and physical by Dr. Witt. TREATMENT PLAN: The patient has been seen by Dr. Red for psychiatric evaluation and for the management of the patient's psychotropic medications. We will provide supportive psychotherapy to include coping strategies for phase of life issues. We will provide motivational enhancement for the patient to become compliant and stay compliant with all aspects of his care and treatment. We will provide a de-escalation skill as well as emotional and self regulation to assist the patient in verbally expressing his concerns versus anger outbursts. We will provide stress management to increase the patient's frustration tolerance. We will continue supportive therapy throughout the patient's hospital stay. Thank you, Dr. Red for this consult and the opportunity to participate with you in this patient's care. [facility]# [id number] ANN-MARIE
[2018-01-20 17:05] LABS: A1C % 5.2 % (4.0-6.0)
--- NOTE | 2018-01-21 08:20 | General Progress Note ---
Subjective - Review of Systems Service Date: 01/21/18 Subjective: Patient is confused Objective - Results Result Diagrams: 01/18/18 20:00 01/18/18 20:00 Recent Labs: Laboratory Last Values WBC 9.2 Th/cmm (4.8-10.8) 01/18/18 20:00 RBC 4.45 Mil/cmm (3.80-5.80) 01/18/18 20:00 Hgb 13.6 gm/dL (12-16) 01/18/18 20:00 Hct 40.8 % (41.0-60) L 01/18/18 20:00 MCV 91.6 fl (80-99) 01/18/18 20:00 MCH 30.5 pg (27.0-31.0) 01/18/18 20: MCHC Differential 33.2 pg (28.0-36.0) 01/18/18 20:00 RDW 13.3 % (11.5-20.0) 01/18/18 20:00 Plt Count 222 Th/cmm (150-400) 01/18/18 20:00 MPV 7.5 fl 01/18/18 20:00 Neutrophils % 62.2 % (40.0-80.0) 01/18/18 20:00 Lymphocytes % 26.2 % (20.0-50.0) 01/18/18 20:00 Monocytes % 6.4 % (2.0-10.0) 01/18/18 20:00 Eosinophils % 4.0 % (0.0-5.0) 01/18/18 20:00 Basophils % 1.2 % (0.0-2.0) 01/18/18 20:00 Sodium 139 mEq/L (136-145) 01/18/18 20:00 Potassium 4.3 mEq/L (3.5-5.1) 01/18/18 20:00 Chloride 104 mEq/L (98-107) 01/18/18 20:00 Carbon Dioxide 27.1 mEq/L (21.0-31.0) 01/18/18 20:00 Anion Gap 12.2 (7.0-16.0) 01/18/18 20:00 BUN 16 mg/dL (7-25) 01/18/18 20:00 Creatinine 0.8 mg/dL (0.7-1.3) 01/18/18 20:00 Est GFR ( Amer) > 60.0 ml/min (>90) 01/18/18 20: Est GFR (Non-Af Amer) > 60.0 ml/min 01/18/18 20:00 BUN/Creatinine Ratio 20.0 01/18/18 20:00 Glucose 116 mg/dL (70-105) H 01/18/18 20: Hemoglobin A1c % 5.2 % (4.0-6.0) 01/18/18 20: Calcium 9.1 mg/dL (8.6-10.3) 01/18/18 20:00 Total Bilirubin 0.3 mg/dL (0.3-1.0) 01/18/18 20:00 AST 13 U/L (13-39) 01/18/18 20:00 ALT 13 U/L (7-52) 01/18/18 20:00 Alkaline Phosphatase 71 U/L (34-104) 01/18/18 20:00 Total Protein 6.5 gm/dL (6.0-8.3) 01/18/18 20: Albumin 3.8 gm/dL (4.2-5.5) L 01/18/18 20: Globulin 2.7 gm/dL 01/18/18 20:00 Albumin/Globulin Ratio 1.4 (1.0-1.8) 01/18/18 20:00 Triglycerides 108 mg/dL (<150) 01/18/18 20:00 Cholesterol 117 mg/dL (<200) 01/18/18 20:00 LDL Cholesterol Direct 80 mg/dL (75-193) 01/18/18 20:00 HDL Cholesterol 25 mg/dL (23-92) 01/18/18 20:00 TSH 1.43 uIU/ml (0.34-5.60) 01/18/18 20:00 Urine Source CLEAN C 01/18/18 21:20 Urine Color YELLOW 01/18/18 21:20 Urine Clarity SLIGHTLY HAZY (CLEAR) 01/18/18 21:20 Urine pH 6.5 (4.6 - 8.0) 01/18/18 21:20 Ur Specific [place] 1.010 (1.005-1.030) 01/18/18 21:20 Urine Protein NEGATIVE mg/dL (NEGATIVE) 01/18/18 21:20 Urine Glucose (UA) NEGATIVE mg/dL (NEGATIVE) 01/18/18 21:20 Urine Ketones NEGATIVE mg/dL (NEGATIVE) 01/18/18 21:20 Urine Blood NEGATIVE (NEGATIVE) 01/18/18 21:20 Urine Nitrate NEGATIVE (NEGATIVE) 01/18/18 21:20 Urine Bilirubin NEGATIVE (NEGATIVE) 01/18/18 21:20 Urine Urobilinogen 4.0 E.U./dL (0.2 - 1.0) H 01/18/18 21:20 Ur Leukocyte Esterase NEGATIVE (NEGATIVE) 01/18/18 21:20 Urine RBC 0-2 /hpf (0-5) H 01/18/18 21:20 Urine WBC 0-2 /hpf (0-5) 01/18/18 21:20 Ur Epithelial Cells RARE /lpf (FEW) 01/18/18 21:20 Urine Bacteria NONE SEEN /hpf (NONE SEEN) 01/18/18 21:20 - Physical Exam Vitals and I&O: Vital Signs Temp 97.9 F 01/21/18 06:10 Pulse 49 01/21/18 06:10 Resp 19 01/21/18 06:10 BP 148/73 01/21/18 06:10 Pulse Ox 97 01/21/18 06:10 Intake & Output 01/20/18 01/21/18 01/21/18 18:59 06:59 18:59 Intake Total 1500 480 Output Total 4 Balance 1496 480 Intake: Oral 1500 480 Output: Urine 4 Other: # Voids 1 # Bowel Movements 2 Active Medications: Current Medications Acetaminophen (Tylenol) 650 mg PO Q4HR PRN PRN Reason: Mild Pain / Temp above 100 Stop: 03/19/18 23:03 Al Hydrox/Mg Hydrox/Simethicone (Maalox) 30 ml PO Q4HR PRN PRN Reason: GI DISTRESS Stop: 03/19/18 23:03 Albuterol/Ipratropium (Duoneb Neb) 3 ml HHN Q6HR PRN PRN Reason: WHEEZING/SOB Stop: 03/20/18 16:14 Amlodipine Besylate (Norvasc) 5 mg PO DAILY MOSHE Stop: 03/21/18 08:59 Last Admin: 01/20/18 09:12 Dose: 5 mg Aspirin (Aspirin) 325 mg PO DAILY MOSHE Stop: 03/21/18 08:59 Last Admin: 01/20/18 09:11 Dose: 325 mg Citalopram Hydrobromide (Celexa) 20 mg PO DAILY MOSHE PRN Reason: Protocol Stop: 03/22/18 08:59 Lorazepam (Ativan) 0.5 mg PO Q4HR PRN; Protocol PRN Reason: Anxiety Stop: 02/17/18 23:03 Magnesium Hydroxide (Milk Of Magnesia) 30 ml PO HS PRN PRN Reason: Constipation Multivitamins/Vitamin C (Theragran) 1 tab PO DAILY MOSHE Stop: 03/20/18 08:59 Last Admin: 01/20/18 09:11 Dose: 1 tab Zolpidem Tartrate (Ambien) 5 mg PO HS PRN PRN Reason: Insomnia Stop: 03/19/18 23:03 Last Admin: 01/20/18 21:10 Dose: 5 mg General: Alert, Other (Confused) HEENT: Atraumatic Neck: Supple Cardiovascular: Regular rate Lungs: Clear to auscultation Abdomen: Bowel sounds, Soft Extremities: Other (No edema) Neurological: Other (Unstable gait) Skin: Other Psych/Mental Status: Other (Confused, not oriented) Assessment/Plan - Assessment Assessment: Patient is awake, alert, confused, not oriented. Dx: increased in agitation, HTN, DM, BPH, CAD, Dementia, Schizophrenia. - Plan Plan: Patient is under Psychiatric care. He is continue with SNF meds.
[2018-01-21] MEDS: Multivitamin Tab PO SCH (08:39)
[2018-01-21] MEDS ORDERED: Haloperidol Lactate 5 mg/mL 1mL Vial IM ONE (15:39)
--- NOTE | 2018-01-21 16:51 | Progress Notes ---
DATE: 01/21/2018 SUBJECTIVE: Staff was spoken to. The patient is interviewed. Mood is noted to be irritable. Affect is constricted. Insight and judgment are noted to be still impaired. Impulse control is noted to be poor. The patient is stating that there is no reason for them to send him over here and the patient is stating that he ____ his girlfriend and he does not know whether she is going to be there by the time he gets back. The patient's coping skills are noted to be very poor. The patient is also having problem with the short-term memory, but long-term memory seems to be fair. No side effects to the medications are noted at this time. ASSESSMENT: The patient is still depressed and getting more paranoid. PLAN: To continue the patient with the supportive therapy and followup. JOB# [id number]
[2018-01-22] MEDS: Multivitamin Tab PO SCH (08:57)
--- NOTE | 2018-01-22 12:13 | General Progress Note ---
Subjective - Review of Systems Service Date: 01/22/18 Subjective: I want go home. Objective - Results Result Diagrams: 01/18/18 20:00 01/18/18 20:00 Recent Labs: Laboratory Last Values WBC 9.2 Th/cmm (4.8-10.8) 01/18/18 20:00 RBC 4.45 Mil/cmm (3.80-5.80) 01/18/18 20:00 Hgb 13.6 gm/dL (12-16) 01/18/18 20:00 Hct 40.8 % (41.0-60) L 01/18/18 20:00 MCV 91.6 fl (80-99) 01/18/18 20:00 MCH 30.5 pg (27.0-31.0) 01/18/18 20:00 MCHC Differential 33.2 pg (28.0-36.0) 01/18/18 20:00 RDW 13.3 % (11.5-20.0) 01/18/18 20:00 Plt Count 222 Th/cmm (150-400) 01/18/18 20:00 MPV 7.5 fl 01/18/18 20:00 Neutrophils % 62.2 % (40.0-80.0) 01/18/18 20:00 Lymphocytes % 26.2 % (20.0-50.0) 01/18/18 20:00 Monocytes % 6.4 % (2.0-10.0) 01/18/18 20:00 Eosinophils % 4.0 % (0.0-5.0) 01/18/18 20: Basophils % 1.2 % (0.0-2.0) 01/18/18 20:00 Sodium 139 mEq/L (136-145) 01/18/18 20:00 Potassium 4.3 mEq/L (3.5-5.1) 01/18/18 20:00 Chloride 104 mEq/L (98-107) 01/18/18 20:00 Carbon Dioxide 27.1 mEq/L (21.0-31.0) 01/18/18 20:00 Anion Gap 12.2 (7.0-16.0) 01/18/18 20:00 BUN 16 mg/dL (7-25) 01/18/18 20:00 Creatinine 0.8 mg/dL (0.7-1.3) 01/18/18 20:00 Est GFR ( Amer) > 60.0 ml/min (>90) 01/18/18 20: Est GFR (Non-Af Amer) > 60.0 ml/min 01/18/18 20:00 BUN/Creatinine Ratio 20.0 01/18/18 20:00 Glucose 116 mg/dL (70-105) H 01/18/18 20:00 Hemoglobin A1c % 5.2 % (4.0-6.0) 01/18/18 20:00 Calcium 9.1 mg/dL (8.6-10.3) 01/18/18 20:00 Total Bilirubin 0.3 mg/dL (0.3-1.0) 01/18/18 20:00 AST 13 U/L (13-39) 01/18/18 20:00 ALT 13 U/L (7-52) 01/18/18 20:00 Alkaline Phosphatase 71 U/L (34-104) 01/18/18 20:00 Total Protein 6.5 gm/dL (6.0-8.3) 01/18/18 20:00 Albumin 3.8 gm/dL (4.2-5.5) L 01/18/18 20:00 Globulin 2.7 gm/dL 01/18/18 20:00 Albumin/Globulin Ratio 1.4 (1.0-1.8) 01/18/18 20:00 Triglycerides 108 mg/dL (<150) 01/18/18 20:00 Cholesterol 117 mg/dL (<200) 01/18/18 20:00 LDL Cholesterol Direct 80 mg/dL (75-193) 01/18/18 20:00 HDL Cholesterol 25 mg/dL (23-92) 01/18/18 20:00 TSH 1.43 uIU/ml (0.34-5.60) 01/18/18 20:00 Urine Source CLEAN C 01/18/18 21:20 Urine Color YELLOW 01/18/18 21:20 Urine Clarity SLIGHTLY HAZY (CLEAR) 01/18/18 21:20 Urine pH 6.5 (4.6 - 8.0) 01/18/18 21:20 Ur Specific [place] 1.010 (1.005-1.030) 01/18/18 21:20 Urine Protein NEGATIVE mg/dL (NEGATIVE) 01/18/18 21:20 Urine Glucose (UA) NEGATIVE mg/dL (NEGATIVE) 01/18/18 21:20 Urine Ketones NEGATIVE mg/dL (NEGATIVE) 01/18/18 21:20 Urine Blood NEGATIVE (NEGATIVE) 01/18/18 21:20 Urine Nitrate NEGATIVE (NEGATIVE) 01/18/18 21:20 Urine Bilirubin NEGATIVE (NEGATIVE) 01/18/18 21:20 Urine Urobilinogen 4.0 E.U./dL (0.2 - 1.0) H 01/18/18 21:20 Ur Leukocyte Esterase NEGATIVE (NEGATIVE) 01/18/18 21:20 Urine RBC 0-2 /hpf (0-5) H 01/18/18 21:20 Urine WBC 0-2 /hpf (0-5) 01/18/18 21:20 Ur Epithelial Cells RARE /lpf (FEW) 01/18/18 21:20 Urine Bacteria NONE SEEN /hpf (NONE SEEN) 01/18/18 21:20 - Physical Exam Vitals and I&O: Vital Signs Temp 97.0 F 01/22/18 05:45 Pulse 68 01/22/18 09:49 Resp 18 01/22/18 09:49 BP 135/73 01/22/18 08:57 Pulse Ox 96 01/22/18 09:49 Intake & Output 01/21/18 01/22/18 01/22/18 18:59 06:59 18:59 Intake Total 1500 420 Balance 1500 420 Intake: Oral 1500 420 Other: # Voids 3 2 # Bowel Movements 1 0 Active Medications: Current Medications Acetaminophen (Tylenol) 650 mg PO Q4HR PRN PRN Reason: Mild Pain / Temp above 100 Stop: 03/19/18 23:03 Al Hydrox/Mg Hydrox/Simethicone (Maalox) 30 ml PO Q4HR PRN PRN Reason: GI DISTRESS Stop: 03/19/18 23:03 Albuterol/Ipratropium (Duoneb Neb) 3 ml HHN Q6HR PRN PRN Reason: WHEEZING/SOB Stop: 03/20/18 16:14 Amlodipine Besylate (Norvasc) 5 mg PO DAILY MOSHE Stop: 03/21/18 08:59 Last Admin: 01/22/18 08:57 Dose: 5 mg Aspirin (Aspirin) 325 mg PO DAILY MOSHE Stop: 03/21/18 08:59 Last Admin: 01/22/18 08:57 Dose: 325 mg Citalopram Hydrobromide (Celexa) 20 mg PO DAILY MOSHE PRN Reason: Protocol Stop: 03/22/18 08:59 Last Admin: 01/22/18 08:56 Dose: 20 mg Lorazepam (Ativan) 0.5 mg PO Q4HR PRN; Protocol PRN Reason: Anxiety Stop: 02/17/18 23:03 Last Admin: 01/22/18 11:56 Dose: 0.5 mg Magnesium Hydroxide (Milk Of Magnesia) 30 ml PO HS PRN PRN Reason: Constipation Multivitamins/Vitamin C (Theragran) 1 tab PO DAILY MOSHE Stop: 03/20/18 08:59 Last Admin: 01/22/18 08:57 Dose: 1 tab Zolpidem Tartrate (Ambien) 5 mg PO HS PRN PRN Reason: Insomnia Stop: 03/19/18 23:03 Last Admin: 01/21/18 20:59 Dose: 5 mg General: Alert, Other (Confused) HEENT: Atraumatic Neck: Supple Cardiovascular: Regular rate Lungs: Clear to auscultation Abdomen: Bowel sounds Extremities: Other (No edema) Neurological: Other (Unstable gait) Skin: Other (Warm and dry) Psych/Mental Status: Other (Confused, not oriented) Assessment/Plan - Assessment Assessment: Patient is awake, alert, confused, not oriented. Dx: increased in agitation, HTN, DM, BPH, CAD, Dementia, Schizophrenia - Plan Plan: Patient is under Psychiatric care. He is continue with SNF meds.
[2018-01-23] MEDS: Multivitamin Tab PO SCH (08:25)
--- NOTE | 2018-01-23 08:36 | General Progress Note ---
Subjective - Review of Systems Service Date: 01/23/18 Subjective: I want go home Objective - Results Result Diagrams: 01/18/18 20:00 01/18/18 20:00 Recent Labs: Laboratory Last Values WBC 9.2 Th/cmm (4.8-10.8) 01/18/18 20:00 RBC 4.45 Mil/cmm (3.80-5.80) 01/18/18 20:00 Hgb 13.6 gm/dL (12-16) 01/18/18 20:00 Hct 40.8 % (41.0-60) L 01/18/18 20:00 MCV 91.6 fl (80-99) 01/18/18 20:00 MCH 30.5 pg (27.0-31.0) 01/18/18 20:00 MCHC Differential 33.2 pg (28.0-36.0) 01/18/18 20:00 RDW 13.3 % (11.5-20.0) 01/18/18 20:00 Plt Count 222 Th/cmm (150-400) 01/18/18 20:00 MPV 7.5 fl 01/18/18 20:00 Neutrophils % 62.2 % (40.0-80.0) 01/18/18 20:00 Lymphocytes % 26.2 % (20.0-50.0) 01/18/18 20:00 Monocytes % 6.4 % (2.0-10.0) 01/18/18 20:00 Eosinophils % 4.0 % (0.0-5.0) 01/18/18 20:00 Basophils % 1.2 % (0.0-2.0) 01/18/18 20:00 Sodium 139 mEq/L (136-145) 01/18/18 20:00 Potassium 4.3 mEq/L (3.5-5.1) 01/18/18 20:00 Chloride 104 mEq/L (98-107) 01/18/18 20:00 Carbon Dioxide 27.1 mEq/L (21.0-31.0) 01/18/18 20:00 Anion Gap 12.2 (7.0-16.0) 01/18/18 20:00 BUN 16 mg/dL (7-25) 01/18/18 20:00 Creatinine 0.8 mg/dL (0.7-1.3) 01/18/18 20:00 Est GFR ( Amer) > 60.0 ml/min (>90) 01/18/18 20: Est GFR (Non-Af Amer) > 60.0 ml/min 01/18/18 20:00 BUN/Creatinine Ratio 20.0 01/18/18 20:00 Glucose 116 mg/dL (70-105) H 01/18/18 20:00 Hemoglobin A1c % 5.2 % (4.0-6.0) 01/18/18 20: Calcium 9.1 mg/dL (8.6-10.3) 01/18/18 20:00 Total Bilirubin 0.3 mg/dL (0.3-1.0) 01/18/18 20:00 AST 13 U/L (13-39) 01/18/18 20:00 ALT 13 U/L (7-52) 01/18/18 20:00 Alkaline Phosphatase 71 U/L (34-104) 01/18/18 20:00 Total Protein 6.5 gm/dL (6.0-8.3) 01/18/18 20: Albumin 3.8 gm/dL (4.2-5.5) L 01/18/18 20: Globulin 2.7 gm/dL 01/18/18 20:00 Albumin/Globulin Ratio 1.4 (1.0-1.8) 01/18/18 20:00 Triglycerides 108 mg/dL (<150) 01/18/18 20:00 Cholesterol 117 mg/dL (<200) 01/18/18 20:00 LDL Cholesterol Direct 80 mg/dL (75-193) 01/18/18 20:00 HDL Cholesterol 25 mg/dL (23-92) 01/18/18 20:00 TSH 1.43 uIU/ml (0.34-5.60) 01/18/18 20:00 Urine Source CLEAN C 01/18/18 21:20 Urine Color YELLOW 01/18/18 21:20 Urine Clarity SLIGHTLY HAZY (CLEAR) 01/18/18 21:20 Urine pH 6.5 (4.6 - 8.0) 01/18/18 21:20 Ur Specific [place] 1.010 (1.005-1.030) 01/18/18 21:20 Urine Protein NEGATIVE mg/dL (NEGATIVE) 01/18/18 21:20 Urine Glucose (UA) NEGATIVE mg/dL (NEGATIVE) 01/18/18 21:20 Urine Ketones NEGATIVE mg/dL (NEGATIVE) 01/18/18 21:20 Urine Blood NEGATIVE (NEGATIVE) 01/18/18 21:20 Urine Nitrate NEGATIVE (NEGATIVE) 01/18/18 21:20 Urine Bilirubin NEGATIVE (NEGATIVE) 01/18/18 21:20 Urine Urobilinogen 4.0 E.U./dL (0.2 - 1.0) H 01/18/18 21:20 Ur Leukocyte Esterase NEGATIVE (NEGATIVE) 01/18/18 21:20 Urine RBC 0-2 /hpf (0-5) H 01/18/18 21:20 Urine WBC 0-2 /hpf (0-5) 01/18/18 21:20 Ur Epithelial Cells RARE /lpf (FEW) 01/18/18 21:20 Urine Bacteria NONE SEEN /hpf (NONE SEEN) 01/18/18 21:20 RPR NONREACTIVE (NONREACTIVE) 01/18/18 20:00 - Physical Exam Vitals and I&O: Vital Signs Temp 98.2 F 01/23/18 06:50 Pulse 61 01/23/18 08:29 Resp 18 01/23/18 07:15 BP 137/65 01/23/18 08:29 Pulse Ox 98 01/23/18 07:15 Intake & Output 01/22/18 01/23/18 01/23/18 18:59 06:59 18:59 Intake Total 1000 480 Balance 1000 480 Intake: Oral 1000 480 Other: # Voids 4 2 # Bowel Movements 1 Active Medications: Current Medications Acetaminophen (Tylenol) 650 mg PO Q4HR PRN PRN Reason: Mild Pain / Temp above 100 Stop: 03/19/18 23:03 Al Hydrox/Mg Hydrox/Simethicone (Maalox) 30 ml PO Q4HR PRN PRN Reason: GI DISTRESS Stop: 03/19/18 23:03 Albuterol/Ipratropium (Duoneb Neb) 3 ml HHN Q6HR PRN PRN Reason: WHEEZING/SOB Stop: 03/20/18 16:14 Amlodipine Besylate (Norvasc) 5 mg PO DAILY MOSHE Stop: 03/21/18 08:59 Last Admin: 01/23/18 08:29 Dose: 5 mg Aspirin (Aspirin) 325 mg PO DAILY MOSHE Stop: 03/21/18 08:59 Last Admin: 01/23/18 08:25 Dose: 325 mg Citalopram Hydrobromide (Celexa) 20 mg PO DAILY MOSHE PRN Reason: Protocol Stop: 03/22/18 08:59 Last Admin: 01/23/18 08:25 Dose: 20 mg Lorazepam (Ativan) 0.5 mg PO Q4HR PRN; Protocol PRN Reason: Anxiety Stop: 02/17/18 23:03 Last Admin: 01/23/18 08:25 Dose: 0.5 mg Magnesium Hydroxide (Milk Of Magnesia) 30 ml PO HS PRN PRN Reason: Constipation Multivitamins/Vitamin C (Theragran) 1 tab PO DAILY MOSHE Stop: 03/20/18 08:59 Last Admin: 01/23/18 08:25 Dose: 1 tab Quetiapine Fumarate (Seroquel) 25 mg PO HS MOSHE PRN Reason: Protocol Stop: 03/24/18 20:59 Zolpidem Tartrate (Ambien) 5 mg PO HS PRN PRN Reason: Insomnia Stop: 03/19/18 23:03 Last Admin: 01/22/18 20:38 Dose: 5 mg General: Alert, Other (Confused) HEENT: Atraumatic Neck: Supple Cardiovascular: Regular rate Lungs: Clear to auscultation Abdomen: Bowel sounds, Soft Extremities: Other (No edema) Neurological: Other (Unstable gait) Skin: Other Psych/Mental Status: Other (Confused, not oriented) Assessment/Plan - Assessment Assessment: Patient is awake, alert, confused, not oriented. Dx: increased in agitation, HTN, DM, BPH, CAD, Dementia, Schizophrenia. - Plan Plan: Patient is under Psychiatric care. He is continue with SNF meds.
--- NOTE | 2018-01-23 10:56 | Progress Notes ---
DATE: 01/22/2018 SUBJECTIVE: Staff was spoken to. The patient is interviewed. Mood is noted to be irritable. Affect is constricted. Coping at this time are noted to be still poor. No side effects to the medications are noted. The patient has been having difficult time to cope with the stress. The patient is demanding that I need to contact his brother who works 3 jobs, so that he can go home. ASSESSMENT: The patient is depressed and is also coming with a lot of paranoid delusions and sexualized behavior. PLAN: To continue the patient with supportive therapy and a low dose of the Seroquel to continue the patient and monitor the patient's behavior. JOB# [id number]
--- NOTE | 2018-01-23 14:51 | Progress Notes ---
DATE: 01/23/2018 SUBJECTIVE: Staff was spoken to. The patient is interviewed. Mood is noted to be irritable. Affect is constricted. Insight and judgment are noted to be still impaired. Impulse control is noted to be limited. The patient is getting easily paranoid. The patient is stating that he could not figure it out why he has to be here and he demands that he should be discharged. The patient has no place to return to and it is reported that the patient has been getting easily paranoid at this time and hence it is decided to add a low dose of the Seroquel and follow the patient with the supportive therapy. JOB# [id number]
[2018-01-24] MEDS: Multivitamin Tab PO SCH (08:22)
--- NOTE | 2018-01-24 09:06 | General Progress Note ---
Subjective - Review of Systems Service Date: 01/24/18 Subjective: I want go home Objective - Results Result Diagrams: 01/18/18 20:00 01/18/18 20:00 Recent Labs: Laboratory Last Values WBC 9.2 Th/cmm (4.8-10.8) 01/18/18 20:00 RBC 4.45 Mil/cmm (3.80-5.80) 01/18/18 20:00 Hgb 13.6 gm/dL (12-16) 01/18/18 20:00 Hct 40.8 % (41.0-60) L 01/18/18 20:00 MCV 91.6 fl (80-99) 01/18/18 20:00 MCH 30.5 pg (27.0-31.0) 01/18/18 20:00 MCHC Differential 33.2 pg (28.0-36.0) 01/18/18 20:00 RDW 13.3 % (11.5-20.0) 01/18/18 20:00 Plt Count 222 Th/cmm (150-400) 01/18/18 20:00 MPV 7.5 fl 01/18/18 20:00 Neutrophils % 62.2 % (40.0-80.0) 01/18/18 20:00 Lymphocytes % 26.2 % (20.0-50.0) 01/18/18 20:00 Monocytes % 6.4 % (2.0-10.0) 01/18/18 20:00 Eosinophils % 4.0 % (0.0-5.0) 01/18/18 20:00 Basophils % 1.2 % (0.0-2.0) 01/18/18 20:00 Sodium 139 mEq/L (136-145) 01/18/18 20:00 Potassium 4.3 mEq/L (3.5-5.1) 01/18/18 20:00 Chloride 104 mEq/L (98-107) 01/18/18 20:00 Carbon Dioxide 27.1 mEq/L (21.0-31.0) 01/18/18 20:00 Anion Gap 12.2 (7.0-16.0) 01/18/18 20:00 BUN 16 mg/dL (7-25) 01/18/18 20:00 Creatinine 0.8 mg/dL (0.7-1.3) 01/18/18 20:00 Est GFR ( Amer) > 60.0 ml/min (>90) 01/18/18 20: Est GFR (Non-Af Amer) > 60.0 ml/min 01/18/18 20:00 BUN/Creatinine Ratio 20.0 01/18/18 20:00 Glucose 116 mg/dL (70-105) H 01/18/18 20:00 Hemoglobin A1c % 5.2 % (4.0-6.0) 01/18/18 20: Calcium 9.1 mg/dL (8.6-10.3) 01/18/18 20:00 Total Bilirubin 0.3 mg/dL (0.3-1.0) 01/18/18 20:00 AST 13 U/L (13-39) 01/18/18 20:00 ALT 13 U/L (7-52) 01/18/18 20:00 Alkaline Phosphatase 71 U/L (34-104) 01/18/18 20:00 Total Protein 6.5 gm/dL (6.0-8.3) 01/18/18 20: Albumin 3.8 gm/dL (4.2-5.5) L 01/18/18 20: Globulin 2.7 gm/dL 01/18/18 20:00 Albumin/Globulin Ratio 1.4 (1.0-1.8) 01/18/18 20:00 Triglycerides 108 mg/dL (<150) 01/18/18 20:00 Cholesterol 117 mg/dL (<200) 01/18/18 20:00 LDL Cholesterol Direct 80 mg/dL (75-193) 01/18/18 20:00 HDL Cholesterol 25 mg/dL (23-92) 01/18/18 20:00 TSH 1.43 uIU/ml (0.34-5.60) 01/18/18 20:00 Urine Source CLEAN C 01/18/18 21:20 Urine Color YELLOW 01/18/18 21:20 Urine Clarity SLIGHTLY HAZY (CLEAR) 01/18/18 21:20 Urine pH 6.5 (4.6 - 8.0) 01/18/18 21:20 Ur Specific [place] 1.010 (1.005-1.030) 01/18/18 21:20 Urine Protein NEGATIVE mg/dL (NEGATIVE) 01/18/18 21:20 Urine Glucose (UA) NEGATIVE mg/dL (NEGATIVE) 01/18/18 21:20 Urine Ketones NEGATIVE mg/dL (NEGATIVE) 01/18/18 21:20 Urine Blood NEGATIVE (NEGATIVE) 01/18/18 21:20 Urine Nitrate NEGATIVE (NEGATIVE) 01/18/18 21:20 Urine Bilirubin NEGATIVE (NEGATIVE) 01/18/18 21:20 Urine Urobilinogen 4.0 E.U./dL (0.2 - 1.0) H 01/18/18 21:20 Ur Leukocyte Esterase NEGATIVE (NEGATIVE) 01/18/18 21:20 Urine RBC 0-2 /hpf (0-5) H 01/18/18 21:20 Urine WBC 0-2 /hpf (0-5) 01/18/18 21:20 Ur Epithelial Cells RARE /lpf (FEW) 01/18/18 21:20 Urine Bacteria NONE SEEN /hpf (NONE SEEN) 01/18/18 21:20 RPR NONREACTIVE (NONREACTIVE) 01/18/18 20:00 - Physical Exam Vitals and I&O: Vital Signs Temp 97.3 F 01/24/18 06:40 Pulse 58 01/24/18 08:22 Resp 18 01/24/18 07:05 BP 143/74 01/24/18 08:22 Pulse Ox 98 01/24/18 07:05 Intake & Output 01/23/18 01/24/18 01/24/18 18:59 06:59 18:59 Intake Total 1200 300 Balance 1200 300 Intake: Oral 1200 300 Other: # Voids 3 2 # Bowel Movements 0 1 Active Medications: Current Medications Acetaminophen (Tylenol) 650 mg PO Q4HR PRN PRN Reason: Mild Pain / Temp above 100 Stop: 03/19/18 23:03 Al Hydrox/Mg Hydrox/Simethicone (Maalox) 30 ml PO Q4HR PRN PRN Reason: GI DISTRESS Stop: 03/19/18 23:03 Albuterol/Ipratropium (Duoneb Neb) 3 ml HHN Q6HR PRN PRN Reason: WHEEZING/SOB Stop: 03/20/18 16:14 Amlodipine Besylate (Norvasc) 5 mg PO DAILY MOSHE Stop: 03/21/18 08:59 Last Admin: 05/16/18 08:22 Dose: 5 mg Aspirin (Aspirin) 325 mg PO DAILY MOSHE Stop: 03/21/18 08:59 Last Admin: 01/24/18 08:22 Dose: 325 mg Citalopram Hydrobromide (Celexa) 20 mg PO DAILY MOSHE PRN Reason: Protocol Stop: 03/22/18 08:59 Last Admin: 01/24/18 08:23 Dose: 20 mg Lorazepam (Ativan) 0.5 mg PO Q4HR PRN; Protocol PRN Reason: Anxiety Stop: 02/17/18 23:03 Last Admin: 01/23/18 08:25 Dose: 0.5 mg Magnesium Hydroxide (Milk Of Magnesia) 30 ml PO HS PRN PRN Reason: Constipation Multivitamins/Vitamin C (Theragran) 1 tab PO DAILY MOSHE Stop: 03/20/18 08:59 Last Admin: 01/24/18 08:22 Dose: 1 tab Quetiapine Fumarate (Seroquel) 25 mg PO HS MOSHE PRN Reason: Protocol Stop: 03/24/18 20:59 Last Admin: 01/23/18 20:38 Dose: 25 mg Zolpidem Tartrate (Ambien) 5 mg PO HS PRN PRN Reason: Insomnia Stop: 03/19/18 23:03 Last Admin: 01/22/18 20:38 Dose: 5 mg General: Alert, Other (Confused) HEENT: Atraumatic Neck: Supple Cardiovascular: Regular rate Lungs: Clear to auscultation Abdomen: Bowel sounds, Soft Extremities: Other (No edema) Neurological: Other (Unstable gait) Skin: Other Psych/Mental Status: Other (Confused, not oriented) Assessment/Plan - Assessment Assessment: Patient is awake, alert, confused, not oriented. Dx: increased in agitation, HTN, DM, BPH, CAD, Dementia, Schizophrenia. - Plan Plan: Patient is under Psychiatric care. He is continue with SNF meds. Nutritional Asmnt/Malnutr-PDOC - Dietary Evaluation Malnutrition Findings (Please click <Entered> for more info): Nutritional Asmnt/Malnutrition Start: 01/23/18 13: 28 Text: Status: Active Freq: Document 01/23/18 14:32 MBONUS (Rec: 01/23/18 14:53 [email or web address]) Nutritional Asmnt/Malnutrition Patient General Information Nutritional Screening Moderate Risk Diagnosis PSYCHOSIS, NOS Pertinent Medical Hx/Surgical Hx CAD, CHF, HTN, COPD, DEMENTIA, PSYCHOSIS, SCHIZOPHRENIA, DM Subjective Information PT WITH HX OF DM, SPOKE WITH RN, STATED PT RECEIVES METFORMIN BUT NO CCHO DIET, BS : 116 ON 01/18, NO OTHER RECENT BS AVAILABLE. RN STATED SHE WILL ASK IF CCHO DIET IS NEEDED AND WILL HAVE DIET CHANGED IVF MD DECIVES THIS IS APPROPRIATE. OTHERWISE, PO INTAKE 100%, NO OTHER NUTRITION CONCERNS AT THIS TIME Current Diet Order/ Nutrition Support DARBY Patient / S.O Can Pertinent Medications MAALOX, MOM, MULTI VIT, Pertinent Labs 01/18: GLUC 116 Nutritional Hx/Data Height 1.7 m Height (Calculated Centimeters) 170.2 Current Weight (lbs) 92.079 kg Weight (Calculated Kilograms) 92.1 Weight (Calculated Grams) 77738.3 [place] Body Weight 67.3 % [place] Body Weight 137 Body Mass Index (BMI) 31.8 Recent Weight Change No Weight Status Overweight GI Symptoms GI Symptoms None Last BM 01/22 X 1 Difficult in: None Food Allergies No Usual diet at home REGULAR Skin Integrity/Comment: INTACT Current %PO Good (75-100%) Estimated Nutritional Goals BEE in Kcals: Adj wt of IBW Calories/Kcals/Kg 25 Kcals Calculated 1837 Protein: Adj wt of IBW Protein g/k.8 Protein Calculated 59 Fluid: ml 1.8 Nutritional Problem No current Nutrition Prob Problem NA Etiology NA Signs/Symptoms: NA Malnutrition Alert Is there a minimum of two criteria No selected? Query Text:Check all the applicable criteria. A minimum of two criteria are recommended for diagnosis of either severe or non-severe malnutrition. Malnutrition Related to Morbid Obesity Malnutrition related to morbid obesity No Expected Outcomes/Goals Expected Outcomes/Goals 1. Continue with current diet as ordered. 2. Monitor PO intake, wt, labs and skin integrity 3. F/U as moderate risk in 3-5 days
--- NOTE | 2018-01-24 22:12 | Progress Notes ---
DATE: 01/24/2018 SUBJECTIVE: Staff was spoken to. The patient is interviewed. Mood is irritable. Affect is constricted. Insight and judgment are noted to be still impaired. Impulse control is noted to be poor. Coping skills are also noted to be very poor. The patient has been having difficult time to cope with the stress. No side effects to the medications are noted. The patient is stating that he is missing his girlfriend, he needs to be there. The patient is not able to understand that he is not welcome at the facility, the staff is looking for placement for this patient. ASSESSMENT: The patient is still impulsive and getting paranoid. PLAN: To continue the patient with the current medications and followup. [facility]# [id number]
[2018-01-25] MEDS: Multivitamin Tab PO SCH (11:19)
--- NOTE | 2018-01-25 12:24 | General Progress Note ---
Subjective - Review of Systems Service Date: 01/25/18 Subjective: I want go home Objective - Results Result Diagrams: 01/18/18 20:00 01/18/18 20:00 Recent Labs: Laboratory Last Values WBC 9.2 Th/cmm (4.8-10.8) 01/18/18 20:00 RBC 4.45 Mil/cmm (3.80-5.80) 01/18/18 20:00 Hgb 13.6 gm/dL (12-16) 01/18/18 20:00 Hct 40.8 % (41.0-60) L 01/18/18 20:00 MCV 91.6 fl (80-99) 01/18/18 20:00 MCH 30.5 pg (27.0-31.0) 01/18/18 20:00 MCHC Differential 33.2 pg (28.0-36.0) 01/18/18 20:00 RDW 13.3 % (11.5-20.0) 01/18/18 20:00 Plt Count 222 Th/cmm (150-400) 01/18/18 20:00 MPV 7.5 fl 01/18/18 20:00 Neutrophils % 62.2 % (40.0-80.0) 01/18/18 20:00 Lymphocytes % 26.2 % (20.0-50.0) 01/18/18 20:00 Monocytes % 6.4 % (2.0-10.0) 01/18/18 20:00 Eosinophils % 4.0 % (0.0-5.0) 01/18/18 20:00 Basophils % 1.2 % (0.0-2.0) 01/18/18 20:00 Sodium 139 mEq/L (136-145) 01/18/18 20:00 Potassium 4.3 mEq/L (3.5-5.1) 01/18/18 20:00 Chloride 104 mEq/L (98-107) 01/18/18 20:00 Carbon Dioxide 27.1 mEq/L (21.0-31.0) 01/18/18 20:00 Anion Gap 12.2 (7.0-16.0) 01/18/18 20:00 BUN 16 mg/dL (7-25) 01/18/18 20:00 Creatinine 0.8 mg/dL (0.7-1.3) 01/18/18 20:00 Est GFR ( Amer) > 60.0 ml/min (>90) 01/18/18 20: Est GFR (Non-Af Amer) > 60.0 ml/min 01/18/18 20:00 BUN/Creatinine Ratio 20.0 01/18/18 20:00 Glucose 116 mg/dL (70-105) H 01/18/18 20:00 Hemoglobin A1c % 5.2 % (4.0-6.0) 01/18/18 20: Calcium 9.1 mg/dL (8.6-10.3) 01/18/18 20:00 Total Bilirubin 0.3 mg/dL (0.3-1.0) 01/18/18 20:00 AST 13 U/L (13-39) 01/18/18 20:00 ALT 13 U/L (7-52) 01/18/18 20:00 Alkaline Phosphatase 71 U/L (34-104) 01/18/18 20:00 Total Protein 6.5 gm/dL (6.0-8.3) 01/18/18 20: Albumin 3.8 gm/dL (4.2-5.5) L 01/18/18 20: Globulin 2.7 gm/dL 01/18/18 20:00 Albumin/Globulin Ratio 1.4 (1.0-1.8) 01/18/18 20:00 Triglycerides 108 mg/dL (<150) 01/18/18 20:00 Cholesterol 117 mg/dL (<200) 01/18/18 20:00 LDL Cholesterol Direct 80 mg/dL (75-193) 01/18/18 20:00 HDL Cholesterol 25 mg/dL (23-92) 01/18/18 20:00 TSH 1.43 uIU/ml (0.34-5.60) 01/18/18 20:00 Urine Source CLEAN C 01/18/18 21:20 Urine Color YELLOW 01/18/18 21:20 Urine Clarity SLIGHTLY HAZY (CLEAR) 01/18/18 21:20 Urine pH 6.5 (4.6 - 8.0) 01/18/18 21:20 Ur Specific [place] 1.010 (1.005-1.030) 01/18/18 21:20 Urine Protein NEGATIVE mg/dL (NEGATIVE) 01/18/18 21:20 Urine Glucose (UA) NEGATIVE mg/dL (NEGATIVE) 01/18/18 21:20 Urine Ketones NEGATIVE mg/dL (NEGATIVE) 01/18/18 21:20 Urine Blood NEGATIVE (NEGATIVE) 01/18/18 21:20 Urine Nitrate NEGATIVE (NEGATIVE) 01/18/18 21:20 Urine Bilirubin NEGATIVE (NEGATIVE) 01/18/18 21:20 Urine Urobilinogen 4.0 E.U./dL (0.2 - 1.0) H 01/18/18 21:20 Ur Leukocyte Esterase NEGATIVE (NEGATIVE) 01/18/18 21:20 Urine RBC 0-2 /hpf (0-5) H 01/18/18 21:20 Urine WBC 0-2 /hpf (0-5) 01/18/18 21:20 Ur Epithelial Cells RARE /lpf (FEW) 01/18/18 21:20 Urine Bacteria NONE SEEN /hpf (NONE SEEN) 01/18/18 21:20 RPR NONREACTIVE (NONREACTIVE) 01/18/18 20:00 - Physical Exam Vitals and I&O: Vital Signs Temp 97 F 01/25/18 06:19 Pulse 62 01/25/18 06:19 Resp 20 01/25/18 06:19 BP 133/78 01/25/18 06:19 Pulse Ox 98 01/25/18 06:19 Intake & Output 01/24/18 01/25/18 01/25/18 18:59 06:59 18:59 Intake Total 1200 120 Balance 1200 120 Intake: Oral 1200 120 Other: # Voids 3 3 Active Medications: Current Medications Acetaminophen (Tylenol) 650 mg PO Q4HR PRN PRN Reason: Mild Pain / Temp above 100 Stop: 03/19/18 23:03 Al Hydrox/Mg Hydrox/Simethicone (Maalox) 30 ml PO Q4HR PRN PRN Reason: GI DISTRESS Stop: 03/19/18 23:03 Albuterol/Ipratropium (Duoneb Neb) 3 ml HHN Q6HR PRN PRN Reason: WHEEZING/SOB Stop: 03/20/18 16:14 Amlodipine Besylate (Norvasc) 5 mg PO DAILY MOSHE Stop: 03/21/18 08:59 Last Admin: 01/25/18 11:19 Dose: Not Given Aspirin (Aspirin) 325 mg PO DAILY MOSHE Stop: 03/21/18 08:59 Last Admin: 01/25/18 11:19 Dose: Not Given Citalopram Hydrobromide (Celexa) 20 mg PO DAILY MOSHE PRN Reason: Protocol Stop: 03/22/18 08:59 Last Admin: 01/25/18 11:19 Dose: Not Given Lorazepam (Ativan) 0.5 mg PO Q4HR PRN; Protocol PRN Reason: Anxiety Stop: 02/17/18 23:03 Last Admin: 01/25/18 10:48 Dose: 0.5 mg Magnesium Hydroxide (Milk Of Magnesia) 30 ml PO HS PRN PRN Reason: Constipation Multivitamins/Vitamin C (Theragran) 1 tab PO DAILY MOSHE Stop: 03/20/18 08:59 Last Admin: 01/25/18 11:19 Dose: Not Given Quetiapine Fumarate (Seroquel) 25 mg PO HS MOSHE PRN Reason: Protocol Stop: 03/24/18 20:59 Last Admin: 01/24/18 21:04 Dose: 25 mg Zolpidem Tartrate (Ambien) 5 mg PO HS PRN PRN Reason: Insomnia Stop: 03/19/18 23:03 Last Admin: 01/24/18 21:49 Dose: 5 mg General: Alert, Other (Confused) HEENT: Atraumatic Neck: Supple Cardiovascular: Regular rate Lungs: Clear to auscultation Abdomen: Bowel sounds, Soft Extremities: Other (No edema) Neurological: Other (Unstable gait) Skin: Other Psych/Mental Status: Other (Confused, not oriented) Assessment/Plan - Assessment Assessment: Patient is awake, alert, confused, not oriented. Dx: increased in agitation, HTN, DM, BPH, CAD, Dementia, Schizophrenia. - Plan Plan: Patient is under Psychiatric care. He is continue with SNF meds. Nutritional Asmnt/Malnutr-PDOC - Dietary Evaluation Malnutrition Findings (Please click <Entered> for more info): Nutritional Asmnt/Malnutrition Start: 01/23/18 13: 28 Text: Status: Active Freq: Document 01/23/18 14:32 [email or web address] (Rec: 01/23/18 14:53 [email or web address]) Nutritional Asmnt/Malnutrition Patient General Information Nutritional Screening Moderate Risk Diagnosis PSYCHOSIS, NOS Pertinent Medical Hx/Surgical Hx CAD, CHF, HTN, COPD, DEMENTIA, PSYCHOSIS, SCHIZOPHRENIA, DM Subjective Information PT WITH HX OF DM, SPOKE WITH RN, STATED PT RECEIVES METFORMIN BUT NO CCHO DIET, BS : 116 ON 01/18, NO OTHER RECENT BS AVAILABLE. RN STATED SHE WILL ASK IF CCHO DIET IS NEEDED AND WILL HAVE DIET CHANGED IVF MD DECIVES THIS IS APPROPRIATE. OTHERWISE, PO INTAKE 100%, NO OTHER NUTRITION CONCERNS AT THIS TIME Current Diet Order/ Nutrition Support DARBY Patient / S.O Can Pertinent Medications MAALOX, MOM, MULTI VIT, Pertinent Labs 01/18: GLUC 116 Nutritional Hx/Data Height 1.7 m Height (Calculated Centimeters) 170.2 Current Weight (lbs) 92.079 kg Weight (Calculated Kilograms) 92.1 Weight (Calculated Grams) 87198.3 [place] Body Weight 67.3 % [place] Body Weight 137 Body Mass Index (BMI) 31.8 Recent Weight Change No Weight Status Overweight GI Symptoms GI Symptoms None Last BM 01/22 X 1 Difficult in: None Food Allergies No Usual diet at home REGULAR Skin Integrity/Comment: INTACT Current %PO Good (75-100%) Estimated Nutritional Goals BEE in Kcals: Adj wt of IBW Calories/Kcals/Kg 25 Kcals Calculated 1837 Protein: Adj wt of IBW Protein g/k.8 Protein Calculated 59 Fluid: ml 1.8 Nutritional Problem No current Nutrition Prob Problem NA Etiology NA Signs/Symptoms: NA Malnutrition Alert Is there a minimum of two criteria No selected? Query Text:Check all the applicable criteria. A minimum of two criteria are recommended for diagnosis of either severe or non-severe malnutrition. Malnutrition Related to Morbid Obesity Malnutrition related to morbid obesity No Expected Outcomes/Goals Expected Outcomes/Goals 1. Continue with current diet as ordered. 2. Monitor PO intake, wt, labs and skin integrity 3. F/U as moderate risk in 3-5 days
--- NOTE | 2018-01-26 01:16 | Progress Notes ---
DATE: 01/25/2018 PSYCHIATRIC PROGRESS NOTE SUBJECTIVE: Staff spoken to. The patient is interviewed. Mood is noted to be irritable. Affect is constricted. Insight and judgment are noted to be still impaired. Impulse control is very poor. Coping skill noted to be poor. The patient has been getting easily frustrated, has been sundowning and the patient has been on Seroquel 25 mg at bedtime and has been able to tolerate the medications. No side effects to the medications are noted. The patient has been having a difficult time to cope with the stress. The patient is still impulsive and getting paranoid and he is demanding that he should leave, but patient has no place to return. Sleep and appetite are noted to be fair at this time, but patient has been getting angry and upset. ASSESSMENT: The patient is still impulsive and depressed. PLAN: To continue the patient with the supportive therapy. I encouraged the patient to verbalize the concerns rather than to act out. JOB# [id number]
--- NOTE | 2018-01-26 08:58 | General Progress Note ---
Subjective - Review of Systems Service Date: 01/26/18 Subjective: I want go home. Objective - Results Result Diagrams: 01/18/18 20:00 01/18/18 20:00 Recent Labs: Laboratory Last Values WBC 9.2 Th/cmm (4.8-10.8) 01/18/18 20:00 RBC 4.45 Mil/cmm (3.80-5.80) 01/18/18 20:00 Hgb 13.6 gm/dL (12-16) 01/18/18 20:00 Hct 40.8 % (41.0-60) L 01/18/18 20:00 MCV 91.6 fl (80-99) 01/18/18 20:00 MCH 30.5 pg (27.0-31.0) 01/18/18 20:00 MCHC Differential 33.2 pg (28.0-36.0) 01/18/18 20:00 RDW 13.3 % (11.5-20.0) 01/18/18 20:00 Plt Count 222 Th/cmm (150-400) 01/18/18 20:00 MPV 7.5 fl 01/18/18 20:00 Neutrophils % 62.2 % (40.0-80.0) 01/18/18 20:00 Lymphocytes % 26.2 % (20.0-50.0) 01/18/18 20:00 Monocytes % 6.4 % (2.0-10.0) 01/18/18 20:00 Eosinophils % 4.0 % (0.0-5.0) 01/18/18 20: Basophils % 1.2 % (0.0-2.0) 01/18/18 20:00 Sodium 139 mEq/L (136-145) 01/18/18 20:00 Potassium 4.3 mEq/L (3.5-5.1) 01/18/18 20:00 Chloride 104 mEq/L (98-107) 01/18/18 20:00 Carbon Dioxide 27.1 mEq/L (21.0-31.0) 01/18/18 20:00 Anion Gap 12.2 (7.0-16.0) 01/18/18 20:00 BUN 16 mg/dL (7-25) 01/18/18 20:00 Creatinine 0.8 mg/dL (0.7-1.3) 01/18/18 20:00 Est GFR ( Amer) > 60.0 ml/min (>90) 01/18/18 20: Est GFR (Non-Af Amer) > 60.0 ml/min 01/18/18 20:00 BUN/Creatinine Ratio 20.0 01/18/18 20:00 Glucose 116 mg/dL (70-105) H 01/18/18 20:00 Hemoglobin A1c % 5.2 % (4.0-6.0) 01/18/18 20:00 Calcium 9.1 mg/dL (8.6-10.3) 01/18/18 20:00 Total Bilirubin 0.3 mg/dL (0.3-1.0) 01/18/18 20:00 AST 13 U/L (13-39) 01/18/18 20:00 ALT 13 U/L (7-52) 01/18/18 20:00 Alkaline Phosphatase 71 U/L (34-104) 01/18/18 20:00 Total Protein 6.5 gm/dL (6.0-8.3) 01/18/18 20:00 Albumin 3.8 gm/dL (4.2-5.5) L 01/18/18 20:00 Globulin 2.7 gm/dL 01/18/18 20:00 Albumin/Globulin Ratio 1.4 (1.0-1.8) 01/18/18 20:00 Triglycerides 108 mg/dL (<150) 01/18/18 20:00 Cholesterol 117 mg/dL (<200) 01/18/18 20:00 LDL Cholesterol Direct 80 mg/dL (75-193) 01/18/18 20:00 HDL Cholesterol 25 mg/dL (23-92) 01/18/18 20:00 TSH 1.43 uIU/ml (0.34-5.60) 01/18/18 20:00 Urine Source CLEAN C 01/18/18 21:20 Urine Color YELLOW 01/18/18 21:20 Urine Clarity SLIGHTLY HAZY (CLEAR) 01/18/18 21:20 Urine pH 6.5 (4.6 - 8.0) 01/18/18 21:20 Ur Specific [place] 1.010 (1.005-1.030) 01/18/18 21:20 Urine Protein NEGATIVE mg/dL (NEGATIVE) 01/18/18 21:20 Urine Glucose (UA) NEGATIVE mg/dL (NEGATIVE) 01/18/18 21:20 Urine Ketones NEGATIVE mg/dL (NEGATIVE) 01/18/18 21:20 Urine Blood NEGATIVE (NEGATIVE) 01/18/18 21:20 Urine Nitrate NEGATIVE (NEGATIVE) 01/18/18 21:20 Urine Bilirubin NEGATIVE (NEGATIVE) 01/18/18 21:20 Urine Urobilinogen 4.0 E.U./dL (0.2 - 1.0) H 01/18/18 21:20 Ur Leukocyte Esterase NEGATIVE (NEGATIVE) 01/18/18 21:20 Urine RBC 0-2 /hpf (0-5) H 01/18/18 21:20 Urine WBC 0-2 /hpf (0-5) 01/18/18 21:20 Ur Epithelial Cells RARE /lpf (FEW) 01/18/18 21:20 Urine Bacteria NONE SEEN /hpf (NONE SEEN) 01/18/18 21:20 RPR NONREACTIVE (NONREACTIVE) 01/18/18 20:00 - Physical Exam Vitals and I&O: Vital Signs Temp 96.9 F 01/25/18 20:00 Pulse 52 01/25/18 20:35 Resp 18 01/25/18 20:35 BP 139/79 01/25/18 20:00 Pulse Ox 99 01/25/18 20:35 Intake & Output 01/25/18 01/26/18 01/26/18 18:59 06:59 18:59 Intake Total 1200 420 Balance 1200 420 Intake: Oral 1200 420 Other: # Voids 3 1 Active Medications: Current Medications Acetaminophen (Tylenol) 650 mg PO Q4HR PRN PRN Reason: Mild Pain / Temp above 100 Stop: 03/19/18 23:03 Al Hydrox/Mg Hydrox/Simethicone (Maalox) 30 ml PO Q4HR PRN PRN Reason: GI DISTRESS Stop: 03/19/18 23:03 Albuterol/Ipratropium (Duoneb Neb) 3 ml HHN Q6HR PRN PRN Reason: WHEEZING/SOB Stop: 03/20/18 16:14 Amlodipine Besylate (Norvasc) 5 mg PO DAILY MOSHE Stop: 03/21/18 08:59 Last Admin: 01/25/18 11:19 Dose: Not Given Aspirin (Aspirin) 325 mg PO DAILY MOSHE Stop: 03/21/18 08:59 Last Admin: 01/25/18 11:19 Dose: Not Given Citalopram Hydrobromide (Celexa) 20 mg PO DAILY MOSHE PRN Reason: Protocol Stop: 03/22/18 08:59 Last Admin: 01/25/18 11:19 Dose: Not Given Lorazepam (Ativan) 0.5 mg PO Q4HR PRN; Protocol PRN Reason: Anxiety Stop: 02/17/18 23:03 Last Admin: 01/25/18 10:48 Dose: 0.5 mg Magnesium Hydroxide (Milk Of Magnesia) 30 ml PO HS PRN PRN Reason: Constipation Multivitamins/Vitamin C (Theragran) 1 tab PO DAILY MOSHE Stop: 03/20/18 08:59 Last Admin: 01/25/18 11:19 Dose: Not Given Quetiapine Fumarate (Seroquel) 50 mg PO HS MOSHE PRN Reason: Protocol Stop: 03/26/18 19:28 Last Admin: 01/25/18 20:58 Dose: 50 mg Zolpidem Tartrate (Ambien) 5 mg PO HS PRN PRN Reason: Insomnia Stop: 03/19/18 23:03 Last Admin: 01/25/18 20:58 Dose: 5 mg General: Alert, Other (Confused) HEENT: Atraumatic Neck: Supple Cardiovascular: Regular rate Lungs: Clear to auscultation Abdomen: Bowel sounds, Soft Extremities: Other (No edema) Neurological: Other (Unstable gait) Skin: Other Psych/Mental Status: Other (Confused, not oriented) Assessment/Plan - Assessment Assessment: Patient is awake, alert, confused, not oriented. Dx: increased in agitation, HTN, DM, BPH, CAD, Dementia, Schizophrenia. - Plan Plan: Patient is under Psychiatric care. He is continue with SNF meds. Nutritional Asmnt/Malnutr-PDOC - Dietary Evaluation Malnutrition Findings (Please click <Entered> for more info): Nutritional Asmnt/Malnutrition Start: 01/23/18 13: 28 Text: Status: Active Freq: Document 01/23/18 14:32 MBONUS (Rec: 01/23/18 14:53 [email or web address]) Nutritional Asmnt/Malnutrition Patient General Information Nutritional Screening Moderate Risk Diagnosis PSYCHOSIS, NOS Pertinent Medical Hx/Surgical Hx CAD, CHF, HTN, COPD, DEMENTIA, PSYCHOSIS, SCHIZOPHRENIA, DM Subjective Information PT WITH HX OF DM, SPOKE WITH RN, STATED PT RECEIVES METFORMIN BUT NO CCHO DIET, BS : 116 ON 01/18, NO OTHER RECENT BS AVAILABLE. RN STATED SHE WILL ASK IF CCHO DIET IS NEEDED AND WILL HAVE DIET CHANGED IVF MD DECIVES THIS IS APPROPRIATE. OTHERWISE, PO INTAKE 100%, NO OTHER NUTRITION CONCERNS AT THIS TIME Current Diet Order/ Nutrition Support DARBY Patient / S.O Can Pertinent Medications MAALOX, MOM, MULTI VIT, Pertinent Labs 01/18: GLUC 116 Nutritional Hx/Data Height 1.7 m Height (Calculated Centimeters) 170.2 Current Weight (lbs) 92.079 kg Weight (Calculated Kilograms) 92.1 Weight (Calculated Grams) 09463.3 [place] Body Weight 67.3 % [place] Body Weight 137 Body Mass Index (BMI) 31.8 Recent Weight Change No Weight Status Overweight GI Symptoms GI Symptoms None Last BM 01/22 X 1 Difficult in: None Food Allergies No Usual diet at home REGULAR Skin Integrity/Comment: INTACT Current %PO Good (75-100%) Estimated Nutritional Goals BEE in Kcals: Adj wt of IBW Calories/Kcals/Kg 25 Kcals Calculated 1837 Protein: Adj wt of IBW Protein g/k.8 Protein Calculated 59 Fluid: ml 1.8 Nutritional Problem No current Nutrition Prob Problem NA Etiology NA Signs/Symptoms: NA Malnutrition Alert Is there a minimum of two criteria No selected? Query Text:Check all the applicable criteria. A minimum of two criteria are recommended for diagnosis of either severe or non-severe malnutrition. Malnutrition Related to Morbid Obesity Malnutrition related to morbid obesity No Expected Outcomes/Goals Expected Outcomes/Goals 1. Continue with current diet as ordered. 2. Monitor PO intake, wt, labs and skin integrity 3. F/U as moderate risk in 3-5 days
[2018-01-26] MEDS: Multivitamin Tab PO SCH (08:59)
--- NOTE | 2018-01-27 01:37 | Progress Notes ---
DATE: 01/26/2018 PSYCHIATRIC PROGRESS NOTE SUBJECTIVE: Staff was spoken to. The patient is interviewed. Mood is noted to be irritable. Affect is constricted. The patient is getting easily frustrated. Insight and judgment at this time are noted to be still impaired. Impulse control is noted to be poor. The patient is stating that he is [employer], works 3 jobs, and no one is able to get in touch with him. The patient is going on and on. The patient's coping skills are noted to be extremely poor. The patient's frustration is more so at nighttime. The patient has no insight into his illness, getting easily paranoid. ASSESSMENT: The patient is still paranoid. PLAN: To continue the patient with the supportive therapy and increase the dose on the Seroquel to 100 mg at bedtime and follow the patient with close monitoring. The patient, at this time, is not able to contact. The patient does not have a place at this time. Plan to closely monitor the patient. Continue the patient with the Seroquel 100 mg at bedtime and Celexa 20 mg in the morning and follow the patient up. JOB# [id number]
[2018-01-27] MEDS: Multivitamin Tab PO SCH (08:47)
--- NOTE | 2018-01-27 11:14 | General Progress Note ---
Subjective - Review of Systems Service Date: 01/27/18 Subjective: I want go home. Objective - Results Result Diagrams: 01/18/18 20:00 01/18/18 20:00 Recent Labs: Laboratory Last Values WBC 9.2 Th/cmm (4.8-10.8) 01/18/18 20:00 RBC 4.45 Mil/cmm (3.80-5.80) 01/18/18 20:00 Hgb 13.6 gm/dL (12-16) 01/18/18 20:00 Hct 40.8 % (41.0-60) L 01/18/18 20:00 MCV 91.6 fl (80-99) 01/18/18 20:00 MCH 30.5 pg (27.0-31.0) 01/18/18 20:00 MCHC Differential 33.2 pg (28.0-36.0) 01/18/18 20:00 RDW 13.3 % (11.5-20.0) 01/18/18 20:00 Plt Count 222 Th/cmm (150-400) 01/18/18 20:00 MPV 7.5 fl 01/18/18 20:00 Neutrophils % 62.2 % (40.0-80.0) 01/18/18 20:00 Lymphocytes % 26.2 % (20.0-50.0) 01/18/18 20:00 Monocytes % 6.4 % (2.0-10.0) 01/18/18 20:00 Eosinophils % 4.0 % (0.0-5.0) 01/18/18 20:00 Basophils % 1.2 % (0.0-2.0) 01/18/18 20:00 Sodium 139 mEq/L (136-145) 01/18/18 20:00 Potassium 4.3 mEq/L (3.5-5.1) 01/18/18 20:00 Chloride 104 mEq/L (98-107) 01/18/18 20:00 Carbon Dioxide 27.1 mEq/L (21.0-31.0) 01/18/18 20:00 Anion Gap 12.2 (7.0-16.0) 01/18/18 20:00 BUN 16 mg/dL (7-25) 01/18/18 20:00 Creatinine 0.8 mg/dL (0.7-1.3) 01/18/18 20:00 Est GFR ( Amer) > 60.0 ml/min (>90) 01/18/18 20: Est GFR (Non-Af Amer) > 60.0 ml/min 01/18/18 20:00 BUN/Creatinine Ratio 20.0 01/18/18 20:00 Glucose 116 mg/dL (70-105) H 01/18/18 20:00 Hemoglobin A1c % 5.2 % (4.0-6.0) 01/18/18 20:00 Calcium 9.1 mg/dL (8.6-10.3) 01/18/18 20:00 Total Bilirubin 0.3 mg/dL (0.3-1.0) 01/18/18 20:00 AST 13 U/L (13-39) 01/18/18 20:00 ALT 13 U/L (7-52) 01/18/18 20:00 Alkaline Phosphatase 71 U/L (34-104) 01/18/18 20:00 Total Protein 6.5 gm/dL (6.0-8.3) 01/18/18 20:00 Albumin 3.8 gm/dL (4.2-5.5) L 01/18/18 20:00 Globulin 2.7 gm/dL 01/18/18 20:00 Albumin/Globulin Ratio 1.4 (1.0-1.8) 01/18/18 20:00 Triglycerides 108 mg/dL (<150) 01/18/18 20:00 Cholesterol 117 mg/dL (<200) 01/18/18 20:00 LDL Cholesterol Direct 80 mg/dL (75-193) 01/18/18 20:00 HDL Cholesterol 25 mg/dL (23-92) 01/18/18 20:00 TSH 1.43 uIU/ml (0.34-5.60) 01/18/18 20:00 Urine Source CLEAN C 01/18/18 21:20 Urine Color YELLOW 01/18/18 21:20 Urine Clarity SLIGHTLY HAZY (CLEAR) 01/18/18 21:20 Urine pH 6.5 (4.6 - 8.0) 01/18/18 21:20 Ur Specific [place] 1.010 (1.005-1.030) 01/18/18 21:20 Urine Protein NEGATIVE mg/dL (NEGATIVE) 01/18/18 21:20 Urine Glucose (UA) NEGATIVE mg/dL (NEGATIVE) 01/18/18 21:20 Urine Ketones NEGATIVE mg/dL (NEGATIVE) 01/18/18 21:20 Urine Blood NEGATIVE (NEGATIVE) 01/18/18 21:20 Urine Nitrate NEGATIVE (NEGATIVE) 01/18/18 21:20 Urine Bilirubin NEGATIVE (NEGATIVE) 01/18/18 21:20 Urine Urobilinogen 4.0 E.U./dL (0.2 - 1.0) H 01/18/18 21:20 Ur Leukocyte Esterase NEGATIVE (NEGATIVE) 01/18/18 21:20 Urine RBC 0-2 /hpf (0-5) H 01/18/18 21:20 Urine WBC 0-2 /hpf (0-5) 01/18/18 21:20 Ur Epithelial Cells RARE /lpf (FEW) 01/18/18 21:20 Urine Bacteria NONE SEEN /hpf (NONE SEEN) 01/18/18 21:20 RPR NONREACTIVE (NONREACTIVE) 01/18/18 20:00 - Physical Exam Vitals and I&O: Vital Signs Temp 97.8 F 01/26/18 15:15 Pulse 77 01/27/18 08:48 Resp 16 01/27/18 07:00 BP 154/79 01/27/18 08:48 Pulse Ox 97 01/27/18 07:00 Intake & Output 01/26/18 01/27/18 01/27/18 18:59 06:59 18:59 Intake Total 1200 Balance 1200 Intake: Oral 1200 Other: # Voids 3 # Bowel Movements 1 Active Medications: Current Medications Acetaminophen (Tylenol) 650 mg PO Q4HR PRN PRN Reason: Mild Pain / Temp above 100 Stop: 03/19/18 23:03 Al Hydrox/Mg Hydrox/Simethicone (Maalox) 30 ml PO Q4HR PRN PRN Reason: GI DISTRESS Stop: 03/19/18 23:03 Albuterol/Ipratropium (Duoneb Neb) 3 ml HHN Q6HR PRN PRN Reason: WHEEZING/SOB Stop: 03/20/18 16:14 Amlodipine Besylate (Norvasc) 5 mg PO DAILY MOSHE Stop: 03/21/18 08:59 Last Admin: 01/27/18 08:48 Dose: 5 mg Aspirin (Aspirin) 325 mg PO DAILY MOSHE Stop: 03/21/18 08:59 Last Admin: 01/27/18 08:47 Dose: 325 mg Citalopram Hydrobromide (Celexa) 20 mg PO DAILY MOSHE PRN Reason: Protocol Stop: 03/22/18 08:59 Last Admin: 01/27/18 08:47 Dose: 20 mg Lorazepam (Ativan) 0.5 mg PO Q4HR PRN; Protocol PRN Reason: Anxiety Stop: 02/17/18 23:03 Last Admin: 01/26/18 09:29 Dose: 0.5 mg Magnesium Hydroxide (Milk Of Magnesia) 30 ml PO HS PRN PRN Reason: Constipation Multivitamins/Vitamin C (Theragran) 1 tab PO DAILY MOSHE Stop: 03/20/18 08:59 Last Admin: 01/27/18 08:47 Dose: 1 tab Quetiapine Fumarate (Seroquel) 100 mg PO HS MOSHE PRN Reason: Protocol Stop: 03/27/18 18:46 Last Admin: 01/26/18 21:39 Dose: 100 mg Zolpidem Tartrate (Ambien) 5 mg PO HS PRN PRN Reason: Insomnia Stop: 03/19/18 23:03 Last Admin: 01/26/18 21:39 Dose: 5 mg General: Alert, Other (Confused) HEENT: Atraumatic Neck: Supple Cardiovascular: Regular rate Lungs: Clear to auscultation Abdomen: Bowel sounds, Soft Extremities: Other (No edema) Neurological: Other (Unstable gait) Skin: Other Psych/Mental Status: Other (Confused, not oriented) Assessment/Plan - Assessment Assessment: Patient is awake, alert, confused, not oriented. Dx: increased in agitation, HTN, DM, BPH, CAD, Dementia, Schizophrenia. - Plan Plan: Patient is under Psychiatric care. He is continue with SNF meds. Nutritional Asmnt/Malnutr-PDOC - Dietary Evaluation Malnutrition Findings (Please click <Entered> for more info): Nutritional Asmnt/Malnutrition Start: 01/23/18 13: 28 Text: Status: Active Freq: Document 01/23/18 14:32 MBONUS (Rec: 01/23/18 14:53 [email or web address]) Nutritional Asmnt/Malnutrition Patient General Information Nutritional Screening Moderate Risk Diagnosis PSYCHOSIS, NOS Pertinent Medical Hx/Surgical Hx CAD, CHF, HTN, COPD, DEMENTIA, PSYCHOSIS, SCHIZOPHRENIA, DM Subjective Information PT WITH HX OF DM, SPOKE WITH RN, STATED PT RECEIVES METFORMIN BUT NO CCHO DIET, BS : 116 ON 01/18, NO OTHER RECENT BS AVAILABLE. RN STATED SHE WILL ASK IF CCHO DIET IS NEEDED AND WILL HAVE DIET CHANGED IVF MD DECIVES THIS IS APPROPRIATE. OTHERWISE, PO INTAKE 100%, NO OTHER NUTRITION CONCERNS AT THIS TIME Current Diet Order/ Nutrition Support DARBY Patient / S.O Can Pertinent Medications MAALOX, MOM, MULTI VIT, Pertinent Labs 01/18: GLUC 116 Nutritional Hx/Data Height 1.7 m Height (Calculated Centimeters) 170.2 Current Weight (lbs) 92.079 kg Weight (Calculated Kilograms) 92.1 Weight (Calculated Grams) 38150.3 [place] Body Weight 67.3 % [place] Body Weight 137 Body Mass Index (BMI) 31.8 Recent Weight Change No Weight Status Overweight GI Symptoms GI Symptoms None Last BM 01/22 X 1 Difficult in: None Food Allergies No Usual diet at home REGULAR Skin Integrity/Comment: INTACT Current %PO Good (75-100%) Estimated Nutritional Goals BEE in Kcals: Adj wt of IBW Calories/Kcals/Kg 25 Kcals Calculated 1837 Protein: Adj wt of IBW Protein g/k.8 Protein Calculated 59 Fluid: ml 1.8 Nutritional Problem No current Nutrition Prob Problem NA Etiology NA Signs/Symptoms: NA Malnutrition Alert Is there a minimum of two criteria No selected? Query Text:Check all the applicable criteria. A minimum of two criteria are recommended for diagnosis of either severe or non-severe malnutrition. Malnutrition Related to Morbid Obesity Malnutrition related to morbid obesity No Expected Outcomes/Goals Expected Outcomes/Goals 1. Continue with current diet as ordered. 2. Monitor PO intake, wt, labs and skin integrity 3. F/U as moderate risk in 3-5 days
--- NOTE | 2018-01-27 23:08 | Progress Notes ---
DATE: 01/27/2018 SUBJECTIVE: Staff was spoken to. The patient is interviewed. Mood is noted to be irritable. Affect is constricted. The patient is getting easily frustrated. Insight and judgment at this time are noted to be still impaired. Impulse control is noted to be limited. No side effects to the medications are noted. The patient has been reporting that he has lot of places to go, but only thing is that he has to contact his family members ____. He says that they are very busy working 3 jobs that he cannot come in here. The patient has been going on a tangent. ASSESSMENT: The patient is still depressed and paranoid. PLAN: To continue the patient with the supportive therapy and followup. JOB# [id number]
[2018-01-28] MEDS: Multivitamin Tab PO SCH (09:38)
--- NOTE | 2018-01-28 09:58 | General Progress Note ---
Subjective - Review of Systems Service Date: 01/28/18 Subjective: I want go home. Objective - Results Result Diagrams: 01/18/18 20:00 01/18/18 20:00 Recent Labs: Laboratory Last Values WBC 9.2 Th/cmm (4.8-10.8) 01/18/18 20:00 RBC 4.45 Mil/cmm (3.80-5.80) 01/18/18 20:00 Hgb 13.6 gm/dL (12-16) 01/18/18 20:00 Hct 40.8 % (41.0-60) L 01/18/18 20:00 MCV 91.6 fl (80-99) 01/18/18 20:00 MCH 30.5 pg (27.0-31.0) 01/18/18 20: MCHC Differential 33.2 pg (28.0-36.0) 01/18/18 20:00 RDW 13.3 % (11.5-20.0) 01/18/18 20:00 Plt Count 222 Th/cmm (150-400) 01/18/18 20:00 MPV 7.5 fl 01/18/18 20:00 Neutrophils % 62.2 % (40.0-80.0) 01/18/18 20:00 Lymphocytes % 26.2 % (20.0-50.0) 01/18/18 20:00 Monocytes % 6.4 % (2.0-10.0) 01/18/18 20:00 Eosinophils % 4.0 % (0.0-5.0) 01/18/18 20: Basophils % 1.2 % (0.0-2.0) 01/18/18 20:00 Sodium 139 mEq/L (136-145) 01/18/18 20:00 Potassium 4.3 mEq/L (3.5-5.1) 01/18/18 20:00 Chloride 104 mEq/L (98-107) 01/18/18 20:00 Carbon Dioxide 27.1 mEq/L (21.0-31.0) 01/18/18 20:00 Anion Gap 12.2 (7.0-16.0) 01/18/18 20:00 BUN 16 mg/dL (7-25) 01/18/18 20:00 Creatinine 0.8 mg/dL (0.7-1.3) 01/18/18 20:00 Est GFR ( Amer) > 60.0 ml/min (>90) 01/18/18 20: Est GFR (Non-Af Amer) > 60.0 ml/min 01/18/18 20:00 BUN/Creatinine Ratio 20.0 01/18/18 20:00 Glucose 116 mg/dL (70-105) H 01/18/18 20:00 Hemoglobin A1c % 5.2 % (4.0-6.0) 01/18/18 20:00 Calcium 9.1 mg/dL (8.6-10.3) 01/18/18 20:00 Total Bilirubin 0.3 mg/dL (0.3-1.0) 01/18/18 20:00 AST 13 U/L (13-39) 01/18/18 20:00 ALT 13 U/L (7-52) 01/18/18 20:00 Alkaline Phosphatase 71 U/L (34-104) 01/18/18 20:00 Total Protein 6.5 gm/dL (6.0-8.3) 01/18/18 20:00 Albumin 3.8 gm/dL (4.2-5.5) L 01/18/18 20:00 Globulin 2.7 gm/dL 01/18/18 20:00 Albumin/Globulin Ratio 1.4 (1.0-1.8) 01/18/18 20:00 Triglycerides 108 mg/dL (<150) 01/18/18 20:00 Cholesterol 117 mg/dL (<200) 01/18/18 20:00 LDL Cholesterol Direct 80 mg/dL (75-193) 01/18/18 20:00 HDL Cholesterol 25 mg/dL (23-92) 01/18/18 20:00 TSH 1.43 uIU/ml (0.34-5.60) 01/18/18 20:00 Urine Source CLEAN C 01/18/18 21:20 Urine Color YELLOW 01/18/18 21:20 Urine Clarity SLIGHTLY HAZY (CLEAR) 01/18/18 21:20 Urine pH 6.5 (4.6 - 8.0) 01/18/18 21:20 Ur Specific [place] 1.010 (1.005-1.030) 01/18/18 21:20 Urine Protein NEGATIVE mg/dL (NEGATIVE) 01/18/18 21:20 Urine Glucose (UA) NEGATIVE mg/dL (NEGATIVE) 01/18/18 21:20 Urine Ketones NEGATIVE mg/dL (NEGATIVE) 01/18/18 21:20 Urine Blood NEGATIVE (NEGATIVE) 01/18/18 21:20 Urine Nitrate NEGATIVE (NEGATIVE) 01/18/18 21:20 Urine Bilirubin NEGATIVE (NEGATIVE) 01/18/18 21:20 Urine Urobilinogen 4.0 E.U./dL (0.2 - 1.0) H 01/18/18 21:20 Ur Leukocyte Esterase NEGATIVE (NEGATIVE) 01/18/18 21:20 Urine RBC 0-2 /hpf (0-5) H 01/18/18 21:20 Urine WBC 0-2 /hpf (0-5) 01/18/18 21:20 Ur Epithelial Cells RARE /lpf (FEW) 01/18/18 21:20 Urine Bacteria NONE SEEN /hpf (NONE SEEN) 01/18/18 21:20 RPR NONREACTIVE (NONREACTIVE) 01/18/18 20:00 - Physical Exam Vitals and I&O: Vital Signs Temp 97.9 F 01/28/18 06:26 Pulse 76 01/28/18 09:37 Resp 16 01/28/18 08:27 BP 138/71 01/28/18 09:37 Pulse Ox 96 01/28/18 08:27 Intake & Output 01/27/18 01/28/18 01/28/18 18:59 06:59 18:59 Intake Total 1400 120 Balance 1400 120 Intake: Oral 1400 120 Other: # Voids 4 2 # Bowel Movements 1 Active Medications: Current Medications Acetaminophen (Tylenol) 650 mg PO Q4HR PRN PRN Reason: Mild Pain / Temp above 100 Stop: 03/19/18 23:03 Al Hydrox/Mg Hydrox/Simethicone (Maalox) 30 ml PO Q4HR PRN PRN Reason: GI DISTRESS Stop: 03/19/18 23:03 Albuterol/Ipratropium (Duoneb Neb) 3 ml HHN Q6HR PRN PRN Reason: WHEEZING/SOB Stop: 03/20/18 16:14 Amlodipine Besylate (Norvasc) 5 mg PO DAILY MOSHE Stop: 03/21/18 08:59 Last Admin: 05/20/18 09:37 Dose: 5 mg Aspirin (Aspirin) 325 mg PO DAILY MOSHE Stop: 03/21/18 08:59 Last Admin: 01/28/18 09:38 Dose: 325 mg Citalopram Hydrobromide (Celexa) 20 mg PO DAILY MOSHE PRN Reason: Protocol Stop: 03/22/18 08:59 Last Admin: 01/28/18 09:38 Dose: 20 mg Lorazepam (Ativan) 0.5 mg PO Q4HR PRN; Protocol PRN Reason: Anxiety Stop: 02/17/18 23:03 Last Admin: 01/26/18 09:29 Dose: 0.5 mg Magnesium Hydroxide (Milk Of Magnesia) 30 ml PO HS PRN PRN Reason: Constipation Multivitamins/Vitamin C (Theragran) 1 tab PO DAILY MOSHE Stop: 03/20/18 08:59 Last Admin: 01/28/18 09:38 Dose: 1 tab Quetiapine Fumarate (Seroquel) 100 mg PO HS MOSHE PRN Reason: Protocol Stop: 03/27/18 18:46 Last Admin: 01/27/18 21:32 Dose: 100 mg Zolpidem Tartrate (Ambien) 5 mg PO HS PRN PRN Reason: Insomnia Stop: 03/19/18 23:03 Last Admin: 01/27/18 21:32 Dose: 5 mg General: Alert, Other (Confused) HEENT: Atraumatic Neck: Supple Cardiovascular: Regular rate Lungs: Clear to auscultation Abdomen: Bowel sounds, Soft Extremities: Other (No edema) Neurological: Other (Unstable gait) Skin: Other Psych/Mental Status: Other (Confused, not oriented) Assessment/Plan - Assessment Assessment: Patient is awake, alert, confused, not oriented. Dx: increased in agitation, HTN, DM, BPH, CAD, Dementia, Schizophrenia. - Plan Plan: Patient is under Psychiatric care. He is continue with SNF meds. Nutritional Asmnt/Malnutr-PDOC - Dietary Evaluation Malnutrition Findings (Please click <Entered> for more info): Nutritional Asmnt/Malnutrition Start: 01/23/18 13: 28 Text: Status: Complete Freq: Document 01/23/18 14:32 MBONUS (Rec: 01/23/18 14:53 [id number]) Nutritional Asmnt/Malnutrition Patient General Information Nutritional Screening Moderate Risk Diagnosis PSYCHOSIS, NOS Pertinent Medical Hx/Surgical Hx CAD, CHF, HTN, COPD, DEMENTIA, PSYCHOSIS, SCHIZOPHRENIA, DM Subjective Information PT WITH HX OF DM, SPOKE WITH RN, STATED PT RECEIVES METFORMIN BUT NO CCHO DIET, BS : 116 ON 01/18, NO OTHER RECENT BS AVAILABLE. RN STATED SHE WILL ASK IF CCHO DIET IS NEEDED AND WILL HAVE DIET CHANGED IVF MD DECIVES THIS IS APPROPRIATE. OTHERWISE, PO INTAKE 100%, NO OTHER NUTRITION CONCERNS AT THIS TIME Current Diet Order/ Nutrition Support DARBY Patient / S.O Can Pertinent Medications MAALOX, MOM, MULTI VIT, Pertinent Labs 01/18: GLUC 116 Nutritional Hx/Data Height 1.7 m Height (Calculated Centimeters) 170.2 Current Weight (lbs) 92.079 kg Weight (Calculated Kilograms) 92.1 Weight (Calculated Grams) 61512.3 [place] Body Weight 67.3 % [place] Body Weight 137 Body Mass Index (BMI) 31.8 Recent Weight Change No Weight Status Overweight GI Symptoms GI Symptoms None Last BM 01/22 X 1 Difficult in: None Food Allergies No Usual diet at home REGULAR Skin Integrity/Comment: INTACT Current %PO Good (75-100%) Estimated Nutritional Goals BEE in Kcals: Adj wt of IBW Calories/Kcals/Kg 25 Kcals Calculated 1837 Protein: Adj wt of IBW Protein g/k.8 Protein Calculated 59 Fluid: ml 1.8 Nutritional Problem No current Nutrition Prob Problem NA Etiology NA Signs/Symptoms: NA Malnutrition Alert Is there a minimum of two criteria No selected? Query Text:Check all the applicable criteria. A minimum of two criteria are recommended for diagnosis of either severe or non-severe malnutrition. Malnutrition Related to Morbid Obesity Malnutrition related to morbid obesity No Expected Outcomes/Goals Expected Outcomes/Goals 1. Continue with current diet as ordered. 2. Monitor PO intake, wt, labs and skin integrity 3. F/U as moderate risk in 3-5 days
--- NOTE | 2018-01-28 17:14 | Progress Notes ---
DATE: 01/28/2018 SUBJECTIVE: Staff was spoken to. The patient is interviewed. Mood is noted to be irritable. Affect is constricted. The patient is stating that he has not done anything and he is being punished. Coping skills are noted to be poor at this time. Sleep and appetite also noted very poor. The patient has been having difficult time to cope with the stress. No side effects to the medications are noted. ASSESSMENT: The patient is still impulsive and having mood swings. PLAN: To continue the patient with the supportive therapy, encouraged the patient to verbalize the concerns rather than to act out. [facility]# [id number]
[2018-01-29] MEDS: Multivitamin Tab PO SCH (08:21)
--- NOTE | 2018-01-29 08:44 | General Progress Note ---
Subjective - Review of Systems Service Date: 01/29/18 Subjective: I want go home. Objective - Results Result Diagrams: 01/18/18 20:00 01/18/18 20:00 Recent Labs: Laboratory Last Values WBC 9.2 Th/cmm (4.8-10.8) 01/18/18 20:00 RBC 4.45 Mil/cmm (3.80-5.80) 01/18/18 20:00 Hgb 13.6 gm/dL (12-16) 01/18/18 20:00 Hct 40.8 % (41.0-60) L 01/18/18 20:00 MCV 91.6 fl (80-99) 01/18/18 20:00 MCH 30.5 pg (27.0-31.0) 01/18/18 20:00 MCHC Differential 33.2 pg (28.0-36.0) 01/18/18 20:00 RDW 13.3 % (11.5-20.0) 01/18/18 20:00 Plt Count 222 Th/cmm (150-400) 01/18/18 20:00 MPV 7.5 fl 01/18/18 20:00 Neutrophils % 62.2 % (40.0-80.0) 01/18/18 20:00 Lymphocytes % 26.2 % (20.0-50.0) 01/18/18 20:00 Monocytes % 6.4 % (2.0-10.0) 01/18/18 20:00 Eosinophils % 4.0 % (0.0-5.0) 01/18/18 20:00 Basophils % 1.2 % (0.0-2.0) 01/18/18 20:00 Sodium 139 mEq/L (136-145) 01/18/18 20:00 Potassium 4.3 mEq/L (3.5-5.1) 01/18/18 20:00 Chloride 104 mEq/L (98-107) 01/18/18 20:00 Carbon Dioxide 27.1 mEq/L (21.0-31.0) 01/18/18 20:00 Anion Gap 12.2 (7.0-16.0) 01/18/18 20:00 BUN 16 mg/dL (7-25) 01/18/18 20:00 Creatinine 0.8 mg/dL (0.7-1.3) 01/18/18 20:00 Est GFR ( Amer) > 60.0 ml/min (>90) 01/18/18 20: Est GFR (Non-Af Amer) > 60.0 ml/min 01/18/18 20:00 BUN/Creatinine Ratio 20.0 01/18/18 20:00 Glucose 116 mg/dL (70-105) H 01/18/18 20:00 Hemoglobin A1c % 5.2 % (4.0-6.0) 01/18/18 20:00 Calcium 9.1 mg/dL (8.6-10.3) 01/18/18 20:00 Total Bilirubin 0.3 mg/dL (0.3-1.0) 01/18/18 20:00 AST 13 U/L (13-39) 01/18/18 20:00 ALT 13 U/L (7-52) 01/18/18 20:00 Alkaline Phosphatase 71 U/L (34-104) 01/18/18 20:00 Total Protein 6.5 gm/dL (6.0-8.3) 01/18/18 20:00 Albumin 3.8 gm/dL (4.2-5.5) L 01/18/18 20:00 Globulin 2.7 gm/dL 01/18/18 20:00 Albumin/Globulin Ratio 1.4 (1.0-1.8) 01/18/18 20:00 Triglycerides 108 mg/dL (<150) 01/18/18 20:00 Cholesterol 117 mg/dL (<200) 01/18/18 20:00 LDL Cholesterol Direct 80 mg/dL (75-193) 01/18/18 20:00 HDL Cholesterol 25 mg/dL (23-92) 01/18/18 20:00 TSH 1.43 uIU/ml (0.34-5.60) 01/18/18 20:00 Urine Source CLEAN C 01/18/18 21:20 Urine Color YELLOW 01/18/18 21:20 Urine Clarity SLIGHTLY HAZY (CLEAR) 01/18/18 21:20 Urine pH 6.5 (4.6 - 8.0) 01/18/18 21:20 Ur Specific [place] 1.010 (1.005-1.030) 01/18/18 21:20 Urine Protein NEGATIVE mg/dL (NEGATIVE) 01/18/18 21:20 Urine Glucose (UA) NEGATIVE mg/dL (NEGATIVE) 01/18/18 21:20 Urine Ketones NEGATIVE mg/dL (NEGATIVE) 01/18/18 21:20 Urine Blood NEGATIVE (NEGATIVE) 01/18/18 21:20 Urine Nitrate NEGATIVE (NEGATIVE) 01/18/18 21:20 Urine Bilirubin NEGATIVE (NEGATIVE) 01/18/18 21:20 Urine Urobilinogen 4.0 E.U./dL (0.2 - 1.0) H 01/18/18 21:20 Ur Leukocyte Esterase NEGATIVE (NEGATIVE) 01/18/18 21:20 Urine RBC 0-2 /hpf (0-5) H 01/18/18 21:20 Urine WBC 0-2 /hpf (0-5) 01/18/18 21:20 Ur Epithelial Cells RARE /lpf (FEW) 01/18/18 21:20 Urine Bacteria NONE SEEN /hpf (NONE SEEN) 01/18/18 21:20 RPR NONREACTIVE (NONREACTIVE) 01/18/18 20:00 - Physical Exam Vitals and I&O: Vital Signs Temp 97.8 F 01/29/18 06:22 Pulse 66 01/29/18 08:21 Resp 20 01/29/18 06:22 BP 134/64 01/29/18 08:21 Pulse Ox 99 01/29/18 06:22 Intake & Output 01/28/18 01/29/18 01/29/18 18:59 06:59 18:59 Intake Total 1200 120 Balance 1200 120 Intake: Oral 1200 120 Other: # Voids 4 2 # Bowel Movements 1 Active Medications: Current Medications Acetaminophen (Tylenol) 650 mg PO Q4HR PRN PRN Reason: Mild Pain / Temp above 100 Stop: 03/19/18 23:03 Al Hydrox/Mg Hydrox/Simethicone (Maalox) 30 ml PO Q4HR PRN PRN Reason: GI DISTRESS Stop: 03/19/18 23:03 Albuterol/Ipratropium (Duoneb Neb) 3 ml HHN Q6HR PRN PRN Reason: WHEEZING/SOB Stop: 03/20/18 16:14 Amlodipine Besylate (Norvasc) 5 mg PO DAILY MOSHE Stop: 03/21/18 08:59 Last Admin: 05/21/18 08:21 Dose: 5 mg Aspirin (Aspirin) 325 mg PO DAILY MOSHE Stop: 03/21/18 08:59 Last Admin: 01/29/18 08:21 Dose: 325 mg Citalopram Hydrobromide (Celexa) 20 mg PO DAILY MOSHE PRN Reason: Protocol Stop: 03/22/18 08:59 Last Admin: 01/29/18 08:21 Dose: 20 mg Lorazepam (Ativan) 0.5 mg PO Q4HR PRN; Protocol PRN Reason: Anxiety Stop: 02/17/18 23:03 Last Admin: 01/26/18 09:29 Dose: 0.5 mg Magnesium Hydroxide (Milk Of Magnesia) 30 ml PO HS PRN PRN Reason: Constipation Multivitamins/Vitamin C (Theragran) 1 tab PO DAILY MOSHE Stop: 03/20/18 08:59 Last Admin: 01/29/18 08:21 Dose: 1 tab Quetiapine Fumarate (Seroquel) 100 mg PO HS MOSHE PRN Reason: Protocol Stop: 03/27/18 18:46 Last Admin: 01/28/18 20:38 Dose: 100 mg Zolpidem Tartrate (Ambien) 5 mg PO HS PRN PRN Reason: Insomnia Stop: 03/19/18 23:03 Last Admin: 01/28/18 20:38 Dose: 5 mg General: Alert, Other (Confused) HEENT: Atraumatic Neck: Supple Cardiovascular: Regular rate Lungs: Clear to auscultation Abdomen: Bowel sounds, Soft Extremities: Other (No edema) Neurological: Other (Unstable gait) Skin: Other Psych/Mental Status: Other (Confused, not oriented) Assessment/Plan - Assessment Assessment: Patient is awake, alert, confused, not oriented. Dx: increased in agitation, HTN, DM, BPH, CAD, Dementia, Schizophrenia. - Plan Plan: Patient is under Psychiatric care. He is continue with SNF meds. Nutritional Asmnt/Malnutr-PDOC - Dietary Evaluation Malnutrition Findings (Please click <Entered> for more info): Nutritional Asmnt/Malnutrition Start: 01/23/18 13: 28 Text: Status: Complete Freq: Document 01/23/18 14:32 MBONUS (Rec: 01/23/18 14:53 [email or web address]) Nutritional Asmnt/Malnutrition Patient General Information Nutritional Screening Moderate Risk Diagnosis PSYCHOSIS, NOS Pertinent Medical Hx/Surgical Hx CAD, CHF, HTN, COPD, DEMENTIA, PSYCHOSIS, SCHIZOPHRENIA, DM Subjective Information PT WITH HX OF DM, SPOKE WITH RN, STATED PT RECEIVES METFORMIN BUT NO CCHO DIET, BS : 116 ON 01/18, NO OTHER RECENT BS AVAILABLE. RN STATED SHE WILL ASK IF CCHO DIET IS NEEDED AND WILL HAVE DIET CHANGED IVF MD DECIVES THIS IS APPROPRIATE. OTHERWISE, PO INTAKE 100%, NO OTHER NUTRITION CONCERNS AT THIS TIME Current Diet Order/ Nutrition Support DARBY Patient / S.O Can Pertinent Medications MAALOX, MOM, MULTI VIT, Pertinent Labs 01/18: GLUC 116 Nutritional Hx/Data Height 1.7 m Height (Calculated Centimeters) 170.2 Current Weight (lbs) 92.079 kg Weight (Calculated Kilograms) 92.1 Weight (Calculated Grams) 41280.3 [place] Body Weight 67.3 % [place] Body Weight 137 Body Mass Index (BMI) 31.8 Recent Weight Change No Weight Status Overweight GI Symptoms GI Symptoms None Last BM 01/22 X 1 Difficult in: None Food Allergies No Usual diet at home REGULAR Skin Integrity/Comment: INTACT Current %PO Good (75-100%) Estimated Nutritional Goals BEE in Kcals: Adj wt of IBW Calories/Kcals/Kg 25 Kcals Calculated 1837 Protein: Adj wt of IBW Protein g/k.8 Protein Calculated 59 Fluid: ml 1.8 Nutritional Problem No current Nutrition Prob Problem NA Etiology NA Signs/Symptoms: NA Malnutrition Alert Is there a minimum of two criteria No selected? Query Text:Check all the applicable criteria. A minimum of two criteria are recommended for diagnosis of either severe or non-severe malnutrition. Malnutrition Related to Morbid Obesity Malnutrition related to morbid obesity No Expected Outcomes/Goals Expected Outcomes/Goals 1. Continue with current diet as ordered. 2. Monitor PO intake, wt, labs and skin integrity 3. F/U as moderate risk in 3-5 days
--- NOTE | 2018-01-30 00:08 | Progress Notes ---
DATE: 01/29/2018 SUBJECTIVE: Staff was spoken to. The patient is interviewed. Mood is noted to be anxious and the patient has been getting easily frustrated. Insight and judgment are still impaired. The patient has been noted to be trying to follow the directions, but he is still sexually preoccupied. The patient's coping skills are noted to be improving. The patient is currently on Celexa and Seroquel and has been able to tolerate. No side effects to the medications are noted. ASSESSMENT: The patient's impulsivity is coming under control and awaiting for placement. PLAN: To continue the patient with the supportive therapy. Discharge the patient when placement is available. JOB# [id number]
--- NOTE | 2018-01-30 08:37 | General Progress Note ---
Subjective - Review of Systems Service Date: 01/30/18 Subjective: I want go home. Objective - Results Result Diagrams: 01/18/18 20:00 01/18/18 20:00 Recent Labs: Laboratory Last Values WBC 9.2 Th/cmm (4.8-10.8) 01/18/18 20:00 RBC 4.45 Mil/cmm (3.80-5.80) 01/18/18 20:00 Hgb 13.6 gm/dL (12-16) 01/18/18 20:00 Hct 40.8 % (41.0-60) L 01/18/18 20:00 MCV 91.6 fl (80-99) 01/18/18 20:00 MCH 30.5 pg (27.0-31.0) 01/18/18 20:00 MCHC Differential 33.2 pg (28.0-36.0) 01/18/18 20:00 RDW 13.3 % (11.5-20.0) 01/18/18 20:00 Plt Count 222 Th/cmm (150-400) 01/18/18 20:00 MPV 7.5 fl 01/18/18 20:00 Neutrophils % 62.2 % (40.0-80.0) 01/18/18 20:00 Lymphocytes % 26.2 % (20.0-50.0) 01/18/18 20:00 Monocytes % 6.4 % (2.0-10.0) 01/18/18 20:00 Eosinophils % 4.0 % (0.0-5.0) 01/18/18 20: Basophils % 1.2 % (0.0-2.0) 01/18/18 20:00 Sodium 139 mEq/L (136-145) 01/18/18 20:00 Potassium 4.3 mEq/L (3.5-5.1) 01/18/18 20:00 Chloride 104 mEq/L (98-107) 01/18/18 20:00 Carbon Dioxide 27.1 mEq/L (21.0-31.0) 01/18/18 20:00 Anion Gap 12.2 (7.0-16.0) 01/18/18 20:00 BUN 16 mg/dL (7-25) 01/18/18 20:00 Creatinine 0.8 mg/dL (0.7-1.3) 01/18/18 20:00 Est GFR ( Amer) > 60.0 ml/min (>90) 01/18/18 20: Est GFR (Non-Af Amer) > 60.0 ml/min 01/18/18 20:00 BUN/Creatinine Ratio 20.0 01/18/18 20:00 Glucose 116 mg/dL (70-105) H 01/18/18 20:00 Hemoglobin A1c % 5.2 % (4.0-6.0) 01/18/18 20:00 Calcium 9.1 mg/dL (8.6-10.3) 01/18/18 20:00 Total Bilirubin 0.3 mg/dL (0.3-1.0) 01/18/18 20:00 AST 13 U/L (13-39) 01/18/18 20:00 ALT 13 U/L (7-52) 01/18/18 20:00 Alkaline Phosphatase 71 U/L (34-104) 01/18/18 20:00 Total Protein 6.5 gm/dL (6.0-8.3) 01/18/18 20:00 Albumin 3.8 gm/dL (4.2-5.5) L 01/18/18 20:00 Globulin 2.7 gm/dL 01/18/18 20:00 Albumin/Globulin Ratio 1.4 (1.0-1.8) 01/18/18 20:00 Triglycerides 108 mg/dL (<150) 01/18/18 20:00 Cholesterol 117 mg/dL (<200) 01/18/18 20:00 LDL Cholesterol Direct 80 mg/dL (75-193) 01/18/18 20:00 HDL Cholesterol 25 mg/dL (23-92) 01/18/18 20:00 TSH 1.43 uIU/ml (0.34-5.60) 01/18/18 20:00 Urine Source CLEAN C 01/18/18 21:20 Urine Color YELLOW 01/18/18 21:20 Urine Clarity SLIGHTLY HAZY (CLEAR) 01/18/18 21:20 Urine pH 6.5 (4.6 - 8.0) 01/18/18 21:20 Ur Specific [place] 1.010 (1.005-1.030) 01/18/18 21:20 Urine Protein NEGATIVE mg/dL (NEGATIVE) 01/18/18 21:20 Urine Glucose (UA) NEGATIVE mg/dL (NEGATIVE) 01/18/18 21:20 Urine Ketones NEGATIVE mg/dL (NEGATIVE) 01/18/18 21:20 Urine Blood NEGATIVE (NEGATIVE) 01/18/18 21:20 Urine Nitrate NEGATIVE (NEGATIVE) 01/18/18 21:20 Urine Bilirubin NEGATIVE (NEGATIVE) 01/18/18 21:20 Urine Urobilinogen 4.0 E.U./dL (0.2 - 1.0) H 01/18/18 21:20 Ur Leukocyte Esterase NEGATIVE (NEGATIVE) 01/18/18 21:20 Urine RBC 0-2 /hpf (0-5) H 01/18/18 21:20 Urine WBC 0-2 /hpf (0-5) 01/18/18 21:20 Ur Epithelial Cells RARE /lpf (FEW) 01/18/18 21:20 Urine Bacteria NONE SEEN /hpf (NONE SEEN) 01/18/18 21:20 RPR NONREACTIVE (NONREACTIVE) 01/18/18 20:00 - Physical Exam Vitals and I&O: Vital Signs Temp 97.3 F 01/30/18 06:14 Pulse 60 01/30/18 06:14 Resp 20 01/30/18 06:14 BP 126/69 01/30/18 06:14 Pulse Ox 96 01/30/18 06:14 Intake & Output 01/29/18 01/30/18 01/30/18 18:59 06:59 18:59 Intake Total 1200 420 Balance 1200 420 Intake: Oral 1200 420 Other: # Voids 4 2 # Bowel Movements 1 0 Active Medications: Current Medications Acetaminophen (Tylenol) 650 mg PO Q4HR PRN PRN Reason: Mild Pain / Temp above 100 Stop: 03/19/18 23:03 Al Hydrox/Mg Hydrox/Simethicone (Maalox) 30 ml PO Q4HR PRN PRN Reason: GI DISTRESS Stop: 03/19/18 23:03 Albuterol/Ipratropium (Duoneb Neb) 3 ml HHN Q6HR PRN PRN Reason: WHEEZING/SOB Stop: 03/20/18 16:14 Amlodipine Besylate (Norvasc) 5 mg PO DAILY MOSHE Stop: 03/21/18 08:59 Last Admin: 01/29/18 08:21 Dose: 5 mg Aspirin (Aspirin) 325 mg PO DAILY MOSHE Stop: 03/21/18 08:59 Last Admin: 01/29/18 08:21 Dose: 325 mg Citalopram Hydrobromide (Celexa) 20 mg PO DAILY MOSHE PRN Reason: Protocol Stop: 03/22/18 08:59 Last Admin: 01/29/18 08:21 Dose: 20 mg Lorazepam (Ativan) 0.5 mg PO Q4HR PRN; Protocol PRN Reason: Anxiety Stop: 02/17/18 23:03 Last Admin: 01/26/18 09:29 Dose: 0.5 mg Magnesium Hydroxide (Milk Of Magnesia) 30 ml PO HS PRN PRN Reason: Constipation Multivitamins/Vitamin C (Theragran) 1 tab PO DAILY MOSHE Stop: 03/20/18 08:59 Last Admin: 01/29/18 08:21 Dose: 1 tab Quetiapine Fumarate (Seroquel) 100 mg PO HS MOSHE PRN Reason: Protocol Stop: 03/27/18 18:46 Last Admin: 01/29/18 21:09 Dose: 100 mg Zolpidem Tartrate (Ambien) 5 mg PO HS PRN PRN Reason: Insomnia Stop: 03/19/18 23:03 Last Admin: 01/29/18 21:09 Dose: 5 mg General: Alert, Other (Confused) HEENT: Atraumatic Neck: Supple Cardiovascular: Regular rate Lungs: Clear to auscultation Abdomen: Bowel sounds, Soft Extremities: Other (No edema) Neurological: Other (Unstable gait) Skin: Other Psych/Mental Status: Other (Confused, not oriented) Assessment/Plan - Assessment Assessment: Patient is awake, alert, confused, not oriented. Dx: increased in agitation, HTN, DM, BPH, CAD, Dementia, Schizophrenia. - Plan Plan: Patient is under Psychiatric care. He is continue with SNF meds. Nutritional Asmnt/Malnutr-PDOC - Dietary Evaluation Malnutrition Findings (Please click <Entered> for more info): Nutritional Asmnt/Malnutrition Start: 01/23/18 13: 28 Text: Status: Complete Freq: Document 01/23/18 14:32 MBONUS (Rec: 01/23/18 14:53 [email or web address]) Nutritional Asmnt/Malnutrition Patient General Information Nutritional Screening Moderate Risk Diagnosis PSYCHOSIS, NOS Pertinent Medical Hx/Surgical Hx CAD, CHF, HTN, COPD, DEMENTIA, PSYCHOSIS, SCHIZOPHRENIA, DM Subjective Information PT WITH HX OF DM, SPOKE WITH RN, STATED PT RECEIVES METFORMIN BUT NO CCHO DIET, BS : 116 ON 01/18, NO OTHER RECENT BS AVAILABLE. RN STATED SHE WILL ASK IF CCHO DIET IS NEEDED AND WILL HAVE DIET CHANGED IVF MD DECIVES THIS IS APPROPRIATE. OTHERWISE, PO INTAKE 100%, NO OTHER NUTRITION CONCERNS AT THIS TIME Current Diet Order/ Nutrition Support DARBY Patient / S.O Can Pertinent Medications MAALOX, MOM, MULTI VIT, Pertinent Labs 01/18: GLUC 116 Nutritional Hx/Data Height 1.7 m Height (Calculated Centimeters) 170.2 Current Weight (lbs) 92.079 kg Weight (Calculated Kilograms) 92.1 Weight (Calculated Grams) 28167.3 [place] Body Weight 67.3 % [place] Body Weight 137 Body Mass Index (BMI) 31.8 Recent Weight Change No Weight Status Overweight GI Symptoms GI Symptoms None Last BM 01/22 X 1 Difficult in: None Food Allergies No Usual diet at home REGULAR Skin Integrity/Comment: INTACT Current %PO Good (75-100%) Estimated Nutritional Goals BEE in Kcals: Adj wt of IBW Calories/Kcals/Kg 25 Kcals Calculated 1837 Protein: Adj wt of IBW Protein g/k.8 Protein Calculated 59 Fluid: ml 1.8 Nutritional Problem No current Nutrition Prob Problem NA Etiology NA Signs/Symptoms: NA Malnutrition Alert Is there a minimum of two criteria No selected? Query Text:Check all the applicable criteria. A minimum of two criteria are recommended for diagnosis of either severe or non-severe malnutrition. Malnutrition Related to Morbid Obesity Malnutrition related to morbid obesity No Expected Outcomes/Goals Expected Outcomes/Goals 1. Continue with current diet as ordered. 2. Monitor PO intake, wt, labs and skin integrity 3. F/U as moderate risk in 3-5 days
[2018-01-30] MEDS: Multivitamin Tab PO SCH (10:13)
== END 2018-01-30 14:10 | DRG 884 ==
LOC: ER 18:26 → GERO 21:46
PROVIDERS: ADMIT Psychiatry & Neurology Psychiatry; ATTEND Psychiatry & Neurology Psychiatry
DX: F03.91 Unspecified dementia, unspecified severity, with behavioral disturbance (principal); I11.0 Hypertensive heart disease with heart failure; F33.1 Major depressive disorder, recurrent, moderate; E11.9 Type 2 diabetes mellitus without complications; J44.9 Chronic obstructive pulmonary disease, unspecified; N40.0 Benign prostatic hyperplasia without lower urinary tract symptoms; I25.10 Atherosclerotic heart disease of native coronary artery without angina pectoris; I50.9 Heart failure, unspecified; F20.9 Schizophrenia, unspecified; Z79.84 Long term (current) use of oral hypoglycemic drugs
CPT/HCPCS: 36415-UA; 80053-TC; 80061-TC; 81001-TC; 83036-90; 84443-TC; 85025-TC; 86592-TC; 90899; 93005; 94760; G0410; J1200; J1630; J2060; Z7610